=== PATIENT | male | born 1970 | race Caucasian/White ===

== ENCOUNTER 2019-04-30 08:14 | Emergency (ER) | payer MEDICARE, OTHER, SELFPAY ==
[2019-04-30 08:19] VITALS: BP 137/96; PULSE 90; RESP 17; TEMP 36.8; O2SAT 99
--- NOTE | 2019-04-30 08:30 | ED.RECABL ---
HPI - Recheck/Abnormal Lab/Rx General Chief Complaint: Recheck/Abnormal Lab/Rx Stated Complaint: flu swab Time Seen by Provider: 04/30/19 08:29 Source: patient and family () Mode of arrival: ambulatory Limitations: no limitations History of Present Illness HPI narrative: The pt is a 48 y/o male who presents to the ED with request for Tamiflu prescription. Pt has a PMHx of cardiac sarcoidosis that makes him more susceptible to disease. He states that he returned from [place] last night, and that he made physical contact with his daughter, who tested positive for flu today. Pt's states that they have wiped down all surfaces at home, but pt states that he would like the prescription to prevent against illness since he had the flu last year, as well as his upcoming pig med[place] in [place] this week. Pt denies rhinorrhea, cough, and sore throat. Pt notes that he has a PSHx of pacemaker and defibrillator. complaint: other (Request for Tamiflu prescription) Returns today for: request for prescription (Tamiflu) Context: other (Has PMHx of cardiac sarcoidosis) Associated symptoms: none Related Data Home Medications Medication Instructions Recorded Confirmed albuterol sulfate [Proventil HFA] INHALATION 04/30/19 Allergies Allergy/AdvReac Type Severity Reaction Status Date / Time amoxicillin Allergy Unknown Hives Verified 04/30/19 08:21 Review of Systems Review of Systems: All systems reviewed & are unremarkable except as noted in HPI and below ENT: Denies sore throat and Denies other (Rhinorrhea) Respiratory: Respiratory: Denies cough PMFSH Past Medical History Medical History (Updated 04/30/19 @ 08:42 by Walker Velarde MD) Cardiac sarcoidosis Corneal abrasion HTN (hypertension) Influenza Surgical History Surgical History (Updated 04/30/19 @ 08:38 by Selvin Hernandez) S/P cardiac pacemaker procedure Status post implantation of automatic cardioverter/defibrillator (AICD) Social History Social History (Updated 04/30/19 @ 08:39 by Selvin Hernandez) Smoking status: Never smoker Gender identity (if verbalized by the patient): Male Exam Narrative: Exam Narrative: GENERAL: Well-appearing, well-nourished, and in no acute distress. HEAD: Normocephalic, atraumatic. CHEST: Clear to auscultation. No respiratory distress. HEART: Regular rate and rhythm. Normal peripheral pulses. EXTREMITIES: Normal range of motion. Normal strength PSYCH: Normal mood and affect. Course Course Emergency Course: Flu negative. Will start on prophylaxis medication. Vital Signs Vital signs: Vital Signs Temperature 98.2 F 04/30/19 08:19 Pulse Rate 90 04/30/19 08:19 Respiratory Rate 17 04/30/19 08:19 Blood Pressure 137/96 H 04/30/19 08:19 Pulse Oximetry 99 04/30/19 08:19 Temperature 98.2 F 04/30/19 08:19 Pulse Rate 90 04/30/19 08:19 Respiratory Rate 17 04/30/19 08:19 Blood Pressure 137/96 H 04/30/19 08:19 Pulse Oximetry 99 04/30/19 08:19 Discharge Plan Discharge Clinical Impression: Exposure to the flu Patient Disposition: Home, Self-Care Condition: Stable Instructions: Influenza (ED) Additional Instructions: Your flu test was negative but some in your family does have influenza. Take Tamiflu once a day to hopefully prevent lobo this infection. Prescriptions: New oseltamivir 75 mg capsule 75 mg PO DAILY Qty: 14 RF: 0 No Action albuterol sulfate [Proventil HFA] 90 mcg/actuation HFA aerosol inhaler INHALATION RF: 0 Follow-up/Referrals: ROBY, [Primary Care Provider] - 1 Week
== END 2019-04-30 09:30 | disposition home or self-care (01) ==
PROVIDERS: Emergency Provider Emergency Medicine
DX: Z20.828 Contact with and (suspected) exposure to other viral communicable diseases (principal); D86.89 Sarcoidosis of other sites; I10 Essential (primary) hypertension; Z95.810 Presence of automatic (implantable) cardiac defibrillator
CPT/HCPCS: 87804; 99283

== ENCOUNTER 2021-09-07 12:10 | Emergency (ER) | payer MEDICARE, OTHER, SELFPAY ==
[2021-09-07 12:21] VITALS: BP 134/93; PULSE 117; RESP 22; TEMP 36.8; O2SAT 99
--- NOTE | 2021-09-07 12:31 | ED.URI ---
HPI - URI/Sore Throat General Chief Complaint: Upper Respiratory Infection Stated Complaint: severe head pressure,deep cough Time Seen by Provider: 09/07/21 12:32 Source: patient and RN notes reviewed Mode of arrival: ambulatory Limitations: no limitations History of Present Illness HPI Narrative: 50-year-old male presented for complaint of sinus pressure, congestion, productive cough of green sputum for about 6 days. He denies associated shortness of breath, heart racing, nausea, vomiting, fevers or chills. He has been taking [id number] cough and cold medication and homeopathic remedies. He denies sick contacts. Has a history of cardiac sarcoidosis and pacemaker. MD elicited complaint: cough Related Data Home Medications Medication Instructions Recorded Confirmed metoprolol succinate 50 mg 1 tablet PO DAILY 09/07/21 09/07/21 tablet,extended release 24 hr Allergies Allergy/AdvReac Type Severity Reaction Status Date / Time amoxicillin Allergy Unknown Hives Verified 09/07/21 12:33 Review of Systems Review of Systems: CONSTITUTIONAL: Endorses malaise, denies chills, sweats, fever EYES: Denies visual changes, redness, or discharge ENT: Reports rhinorrhea, congestion, sinus pain, otalgia, sore throat CARDIOVASCULAR: Denies chest pain, palpitations, edema RESPIRATORY: Reports cough, post nasal drainage. Denies dyspnea GASTROINTESTINAL: Denies abdominal pain, nausea, vomiting, diarrhea SKIN: Denies rash or itching MUSCULOSKELETAL: Endorses myalgia NEUROLOGIC: Endorses headache PMFSH Past Medical History Medical History Cardiac sarcoidosis Corneal abrasion HTN (hypertension) Influenza Surgical History Surgical History S/P cardiac pacemaker procedure Status post implantation of automatic cardioverter/defibrillator (AICD) Social History Social History Smoking status: Never smoker Gender identity (if verbalized by the patient): Male Exam Narrative: GENERAL: Ill-appearing, nontoxic EYES: right conjunctival injection ENT: Mucous membranes moist. TMs pearly guillen with normal light reflex bilaterally; no tragal tenderness. Oropharynx erythematous without lesions or exudate, no drooling, no hoarseness, no trismus, uvula midline. NECK: Supple. No lymphadenopathy CHEST: Clear to auscultation, breath sounds equal. Frequent harsh moist cough. No wheezing, rhonchi, rales, or stridor. No respiratory distress, speaks in full sentences. HEART: Regular rate and rhythm. No murmur heard. SKIN: Warm, dry, no rash. NEURO: Alert and oriented x3. PSYCH: Normal mood and affect Course Course Emergency Course: Patient is aware of diagnosis, understands and agrees to treatment plan. Anticipatory guidance given. Patient agrees to follow-up as directed and is aware of reasons to seek care at the emergency department. Portions of this record may have been created with voice recognition software Level of Care: Express Care Visit Vital Signs Vital signs: reviewed MDM - URI/Sore Throat MDM Narrative Medical decision making narrative: Advised supportive measures in addition to antibiotic and steroid for URI, aware of signs/symptoms to go to the ER. Pt is appropriate for outpt treatment and f/u. Differential Diagnosis Differential diagnosis: Likely upper respiratory infection, sinusitis and viral infection Discharge Plan Discharge Clinical Impression: Upper respiratory infection Qualifiers: URI type: unspecified URI Qualified Code(s): J06.9 - Acute upper respiratory infection, unspecified Patient Disposition: Home, Self-Care Condition: Stable Instructions: Antibiotic Form, Upper Respiratory Infection (ED) Additional Instructions: Recommend Flonase spray and Zyrtec (or Claritin/Rabia) Tylenol 1000mg every 8 hours as needed for pain
== END 2021-09-07 12:48 | disposition home or self-care (01) ==
PROVIDERS: Emergency Provider Nurse Practitioner Family
DX: J06.9 Acute upper respiratory infection, unspecified (principal); I10 Essential (primary) hypertension; Z95.810 Presence of automatic (implantable) cardiac defibrillator; D86.89 Sarcoidosis of other sites
CPT/HCPCS: 99213; G0463

== ENCOUNTER 2021-09-23 14:25 | Emergency (ER) | payer MEDICARE, OTHER, SELFPAY ==
[2021-09-23 14:36] VITALS: BP 144/94; PULSE 99; RESP 18; TEMP 36.7; O2SAT 100
--- NOTE | 2021-09-23 14:41 | ED.SKABFB ---
HPI - Skin/Abscess/Foreign Bdy General Chief complaint: Skin/Abscess/Foreign Body Stated complaint: Rash Time Seen by Provider: 09/23/21 14:43 Source: patient and RN notes reviewed Mode of arrival: ambulatory Limitations: no limitations History of Present Illness HPI narrative: 50-year-old male presents with concern for poison yran. He reports rash on both arms for 2 days and yesterday he noticed a rash on his eye. He reports he got this rash [place]. He reports seeing spider web like substance in his eye that then cleared. He denies other vision changes or eye pain. He reports MD complaint: rash Related Data Home Medications Medication Instructions Recorded Confirmed metoprolol succinate 50 mg 1 tablet PO DAILY 09/07/21 09/23/21 tablet,extended release 24 hr Allergies Allergy/AdvReac Type Severity Reaction Status Date / Time amoxicillin Allergy Unknown Hives Verified 09/23/21 14:38 Review of Systems Review of Systems: CONSTITUTIONAL: Denies malaise, chills, sweats, or fever. EYES: Denies redness, or discharge. ENT: Denies rhinorrhea, congestion, swollen lips, swollen tongue CARDIOVASCULAR: Denies chest pain, palpitations, or edema. RESPIRATORY: Denies cough or dyspnea. GASTROINTESTINAL: Denies abdominal pain, nausea, vomiting SKIN: Reports itchy rash on bilateral arms, the left eyelid MUSCULOSKELETAL: Denies joint pain or myalgia. NEUROLOGIC: Denies headache. All systems reviewed & are unremarkable except as noted in HPI and below PMFSH Past Medical History Medical History Cardiac sarcoidosis Corneal abrasion HTN (hypertension) Influenza Surgical History Surgical History S/P cardiac pacemaker procedure Status post implantation of automatic cardioverter/defibrillator (AICD) Social History Social History Smoking status: Never smoker Gender identity (if verbalized by the patient): Male Comments At time of signature, agree with nursing past medical, surgical, social and family history. There is no relevant family history pertinent to the presenting complaint Exam Narrative: GENERAL: Well-appearing, well-nourished, and in no acute distress. HEAD: Normocephalic, atraumatic. EYES: PERRLA, conjunctivae clear, and EOMI. ENT: Mucous membranes moist. NECK: Supple. No lymphadenopathy CHEST: Clear to auscultation. No respiratory distress. HEART: Regular rate and rhythm. SKIN: Warm, dry. Patches of erythema, vesicles noted to bilateral forearms, some linear pattern, to the left upper eyelid NEURO: Alert and oriented x3. PSYCH: Normal mood and affect Course Course Emergency Course: Patient is aware of diagnosis, understands and agrees to treatment plan. Anticipatory guidance given. Patient agrees to follow-up as directed and is aware of reasons to seek care at the emergency department. Portions of this record may have been created with voice recognition software Level of Care: Express Care Visit Vital Signs Vital signs: Vital Signs Temperature 98.1 F 09/23/21 14:36 Pulse Rate 99 09/23/21 14:36 Respiratory Rate 18 09/23/21 14:36 Blood Pressure 144/94 H 09/23/21 14:36 Pulse Oximetry 100 09/23/21 14:36 Oxygen Delivery Room Air 09/23/21 14:36 Temperature 98.1 F 09/23/21 14:36 Pulse Rate 99 09/23/21 14:36 Respiratory Rate 18 09/23/21 14:36 Blood Pressure 144/94 H 09/23/21 14:36 Pulse Oximetry 100 09/23/21 14:36 Oxygen Delivery Room Air 09/23/21 14:36 Reviewed. MDM - Skin/Abscess/Foreign Bdy MDM Narrative Medical decision making narrative: Does not appear at this time to be erythema multiforme, bullous, SJS, TEN; no evidence at this time to suggest RMSF, endocarditis or Lyme disease; patient looks well, nontoxic and is tolerating oral intake; no
[2021-09-23] MEDS: methylPREDNISolone SOD SUCC 125 MG VIAL IM (14:53)
== END 2021-09-23 15:18 | disposition home or self-care (01) ==
PROVIDERS: Emergency Provider Nurse Practitioner
DX: L25.9 Unspecified contact dermatitis, unspecified cause (principal); I10 Essential (primary) hypertension; D86.89 Sarcoidosis of other sites; Z95.810 Presence of automatic (implantable) cardiac defibrillator
CPT/HCPCS: 96372; 99213; G0463; J2930

== ENCOUNTER 2023-04-23 17:34 | Emergency (ER) | payer MEDICARE, OTHER, SELFPAY ==
--- NOTE | 2023-04-23 17:39 | ED.URI ---
HPI - URI/Sore Throat General Chief Complaint: Upper Respiratory Infection Stated Complaint: flu like symptoms Time Seen by Provider: 04/23/23 17:38 Source: patient Mode of arrival: ambulatory Limitations: no limitations History of Present Illness HPI Narrative: Patient is a 52-year-old male who presents with 4 days of cough, congestion, chills, fatigue. Patient has history of sarcoidosis, pacemaker. Has been taking natural remedies. Denies any fever, nausea, vomiting, diarrhea. Denies any known sick contacts. Patient and vitamin B12 and another immunity support injection today. Related Data Home Medications Medication Instructions Recorded Confirmed metoprolol succinate 50 mg 1 tablet PO DAILY 09/07/21 09/23/21 tablet,extended release 24 hr prednisone 20 mg tablet 5 mg PO DAILY 04/23/23 Allergies Allergy/AdvReac Type Severity Reaction Status Date / Time amoxicillin Allergy Unknown Hives Verified 04/23/23 17:46 Review of Systems Review of Systems: All systems reviewed & are unremarkable except as noted in HPI and below Constitutional: Constitutional: Denies body ache(s), Denies chills, Denies fatigue, Denies fever(s), Denies headache(s), Denies malaise and Denies weakness Eyes: Eyes: Denies blurry vision, Denies itchy eyes and Denies loss of vision ENT: Denies otalgia, Denies headache(s), Reports nasal congestion, Denies sinus pain and Denies sore throat Cardiovascular: Cardiovascular: Denies chest pain, Denies irregular heart rhythm and Denies dyspnea Respiratory: Respiratory: Reports cough and Denies dyspnea Gastrointestinal: Gastrointestinal: Denies abdominal pain, Denies diarrhea, Denies nausea and Denies vomiting Musculoskeletal: Musculoskeletal: Denies back pain, Denies myalgias and Denies arthralgias Integumentary/Breasts: Skin/Breast: Denies pruritus and Denies rash Neurologic: Denies headache(s), Denies loss of vision and Denies weakness Psychiatric: Psychiatric: Reports no additional psychiatric complaints Endocrine: Endocrine: Denies fatigue Allergic/Immunologic: Allergic/Immunologic: Denies itchy eyes PMFSH Past Medical History Medical History Cardiac sarcoidosis Corneal abrasion HTN (hypertension) Influenza Surgical History Surgical History S/P cardiac pacemaker procedure Status post implantation of automatic cardioverter/defibrillator (AICD) Social History Social History Smoking status: Never smoker Gender identity (if verbalized by the patient): Male Comments At time of signature, agree with nursing past medical, surgical, social and family history. There is no relevant family history pertinent to the presenting complaint. Exam Const: General: cooperative, healthy appearing, comfortable, no acute distress and well nourished Nutritional Appearance: well nourished Orientation/consciousness: patient oriented x3 Limitations: no limitations HENMT: Head: normal to inspection, normocephalic and atraumatic Ears: hearing grossly normal bilaterally, external ears normal, TM's normal bilaterally, EAC's normal and no periauricular adenopathy Face/Nose/Sinus: Normal external nose present, Normal nasal mucous membranes and turbinates present, normal facial exam, sinuses nontender and face symmetric Face and sinus: normal facial exam, sinuses nontender and face symmetric Mouth: Yes Normal oral and palatal mucosa present, Yes lip normal, Yes tongue normal, Yes Normal salivary glands and ducts present, Yes oropharynx normal and Yes moist mucous membranes Teeth and gingiva: dentition normal Throat: uvula midline, posterior oropharynx abnormal erythema, postnasal drainage and tonsils absent Eyes: General: appearance normal, both eyes and all related structures Alignment and Position: alignment normal and position normal
[2023-04-23 17:47] VITALS: BP 143/87; PULSE 79; RESP 18; TEMP 36.6; O2SAT 100
[2023-04-23 17:48] VITALS: BP 143/87; PULSE 79; RESP 18; TEMP 36.6; O2SAT 100
== END 2023-04-23 18:12 | disposition home or self-care (01) ==
PROVIDERS: Emergency Provider Nurse Practitioner Family
DX: J20.9 Acute bronchitis, unspecified (principal); I10 Essential (primary) hypertension
CPT/HCPCS: 99213; G0463

== ENCOUNTER 2023-05-04 13:24 | Emergency (ER) | payer MEDICARE, OTHER, SELFPAY ==
--- NOTE | ~2023-05-04 | XR_ITS ---
EXAMINATION: XR chest 2V DATE: 05/04/2023 14:01 INDICATION: Cough. TECHNIQUE: Frontal and lateral views of the chest were obtained. COMPARISON: None. FINDINGS: There is no pneumonia, pleural effusion, or pneumothorax. The heart size is normal. There i s a left chest wall pacer with leads in the right atrium and right ventricle. IMPRESSION: 1. No acute cardiopulmonary disease. Reviewed, dictated and finalized at location E. ELAIN MIXER
[2023-05-04 13:30] VITALS: BP 127/85; PULSE 109; RESP 20; TEMP 37; O2SAT 99
--- NOTE | 2023-05-04 14:01 | ED.URI ---
HPI - URI/Sore Throat General Chief Complaint: Upper Respiratory Infection Stated Complaint: Cough and Congestion Time Seen by Provider: 05/04/23 14:02 Source: patient, RN notes reviewed and old records reviewed Mode of arrival: ambulatory Limitations: no limitations History of Present Illness HPI Narrative: 52 year old male who presents to [facility] care with complaints of cough with congestion persisting after treatment with antibiotic, albuterol inhaler,steroid and cough syrup which was ordered on 04/23/2023. Patient reports that promethazine cough syrup did nothing but give him diarrhea. He reports that he has not slept more that a 2 hour interval for the past 3 weeks because of his cough. Patient states his drainage is now yellow green in color. Patient reports no recent fevers, MD elicited complaint: cough and other (congestion) Pertinent past history: immunosuppression and other (sarcoidosis) Onset (ago): week(s) (3) Consistency: constant Severity: moderate Description of mucous: yellow and green Able to tolerate fluids by mouth: Yes Treatments prior to arrival: antibiotics and other (prescription cough med and steroid, and inhaler) Related Data Home Medications Medication Instructions Recorded Confirmed metoprolol succinate 50 mg 1 tablet PO DAILY 09/07/21 05/04/23 tablet,extended release 24 hr prednisone 5 mg tablet 5 mg PO DAILY 05/04/23 05/04/23 Allergies Allergy/AdvReac Type Severity Reaction Status Date / Time amoxicillin AdvReac Mild Hives Verified 05/04/23 13:40 Review of Systems Review of Systems: CONSTITUTIONAL: Denies malaise, chills, sweats, or fever. EYES: Denies visual changes, redness, or discharge. ENT: Reports rhinorrhea, congestion, sinus pain, no otalgia and no sore throat. CARDIOVASCULAR: Denies chest pain, palpitations, or edema. RESPIRATORY: Reports cough.? Denies dyspnea.persistent cough GASTROINTESTINAL: Denies abdominal pain, nausea, vomiting, diarrhea SKIN: Denies rash or itching. MUSCULOSKELETAL: Denies myalgia. NEUROLOGIC: Denies headache. All systems reviewed & are unremarkable except as noted in HPI and below PMFSH Past Medical History Medical History Acute cough Cardiac sarcoidosis Corneal abrasion HTN (hypertension) Influenza URI (upper respiratory infection) Surgical History Surgical History S/P cardiac pacemaker procedure Status post implantation of automatic cardioverter/defibrillator (AICD) Social History Social History Smoking status: Never smoker Gender identity (if verbalized by the patient): Male Comments At time of signature, agree with nursing past medical, surgical, social and family history. There is no relevant family history pertinent to the presenting complaint Exam Narrative: GENERAL: Well-appearing, well-nourished, and in no acute distress. HEAD: Normocephalic EYES: PERRLA, conjunctivae clear ENT: Nares clear, turbinates edematous and erythematous, yellow discharge. Mucous membranes moist. TM pearly guillen with dull light reflex bilaterally; no tragal tenderness. Oropharynx erythematous without lesions. Tonsils not enlarged and without exudate, no drooling, no hoarseness, no trismus, uvula midline.post nasal drainage NECK: Supple. No lymphadenopathy CHEST: Clear to auscultation, breath sounds equal. No wheezing, rhonchi, rales, or stridor. No respiratory distress, speaks in full sentences.harsh cough,SAO2 99% on room air HEART: Regular rate and rhythm. No murmur heard. SKIN: Warm, dry, no rash. NEURO: Alert and oriented x3. PSYCH: Normal mood and affect Course Course Emergency Course: Patient is aware of diagnosis, understands and agrees to treatment plan.? Anticipatory guidance given.? Patient agrees to follow-up as directed and is aware of re
== END 2023-05-04 14:25 | disposition home or self-care (01) ==
PROVIDERS: Emergency Provider Registered Nurse
DX: J06.9 Acute upper respiratory infection, unspecified (principal); I10 Essential (primary) hypertension; D86.89 Sarcoidosis of other sites; Z95.810 Presence of automatic (implantable) cardiac defibrillator
CPT/HCPCS: 71046; 99213; G0463

== ENCOUNTER 2023-11-27 16:42 | Emergency (ER) | payer MEDICARE, OTHER, SELFPAY ==
--- NOTE | ~2023-11-27 | XR_ITS ---
EXAMINATION: [id number] Exam Date/Time: 11/27/2023 17:22 CDT HISTORY: fall 7 days ago. pain lower ribs anterior to later Comparison: 05/04/2023. RESULT: Lines, tubes, and devices: Left chest pacer/AICD with intact leads. Lungs and pleura: Clear. Cardiothymic silhouette: Stable. Other: No acute upper abdominal finding. Mildly displaced fractures of the anterolateral right sixth and seventh ribs IMPRESSION: No acute cardiopulmonary process. Mildly displaced fractures of the anterolateral right sixth and sev enth ribs. Reviewed, dictated and finalized at location K. IMPRESSION: No acute cardiopulmonary process. Mildly displaced fractures of the anterolater al right sixth and seventh ribs.
--- NOTE | 2023-11-27 16:49 | ED.GENADULT ---
HPI - General Adult General Chief complaint: Unspecified Stated complaint: pain and injury in rib cage Time Seen by Provider: 11/27/23 16:54 Source: patient, RN notes reviewed and old records reviewed Mode of arrival: ambulatory Limitations: no limitations History of Present Illness HPI narrative: 53-year-old male presents to the [facility] with complaints of rib discomfort after falling into the side of the truck bed. Patient states that he was standing in the bed when he slipped and fell forward landing with his ribs against the side of the truck bed. States that occurred 1 week ago. Continued to dear Duval with a bow. Pain is worse with cool his arms and using a ratchet strap. States he has been taken ibuprofen with some relief Onset (ago): week(s) (1) Treatments prior to arrival: NSAID Related Data Home Medications Medication Instructions Recorded Confirmed metoprolol succinate 50 mg 1 tablet PO DAILY 09/07/21 11/27/23 tablet,extended release 24 hr prednisone 5 mg tablet 5 mg PO DAILY 05/04/23 11/27/23 Allergies Allergy/AdvReac Type Severity Reaction Status Date / Time amoxicillin Allergy Mild Hives Verified 11/27/23 16:57 Review of Systems Review of Systems: All systems reviewed & are unremarkable except as noted in HPI and below Constitutional: Constitutional: Reports no additional constitutional complaints Eyes: Eyes: Reports no additional eye complaints ENT: Reports system reviewed and no additional complaints, except as documented Cardiovascular: Cardiovascular: Reports as per HPI, Denies chest pain and Denies dyspnea Comments: Right rib pain Respiratory: Respiratory: Reports no additional respiratory complaints, Denies chest congestion, Denies cough and Denies dyspnea Gastrointestinal: Gastrointestinal: Reports no additional gastrointestinal complaints, Denies abdominal pain, Denies nausea and Denies vomiting Musculoskeletal: Musculoskeletal: Reports no additional musculoskeletal complaints Integumentary/Breasts: Skin/Breast: Reports system reviewed and no additional complaints, except as docu Neurologic: Reports system reviewed and no additional complaints, except as documented Psychiatric: Psychiatric: Reports no additional psychiatric complaints Allergic/Immunologic: Allergic/Immunologic: Reports no additional allergic/immunologic complaints PMFSH Past Medical History Medical History Acute cough Cardiac sarcoidosis Corneal abrasion HTN (hypertension) Influenza URI (upper respiratory infection) Surgical History Surgical History S/P cardiac pacemaker procedure Status post implantation of automatic cardioverter/defibrillator (AICD) Social History Social History Smoking status: Never smoker Gender identity (if verbalized by the patient): Male Comments At the time of my signature, I reviewed and agree with the nursing past medical, surgical, social, and family history. There is no relevant family history pertinent to the patient complaint. Exam Const: General: cooperative, healthy appearing, comfortable, no acute distress, well developed, alert and well nourished Nutritional Appearance: well nourished Orientation/consciousness: patient oriented x3 Limitations: no limitations HENMT: Head: normal to inspection Ears: hearing grossly normal bilaterally and external ears normal Face/Nose/Sinus: Normal external nose present, Normal nares present, Normal nasal mucous membranes and turbinates present, normal facial exam and face symmetric Face and sinus: normal facial exam and face symmetric Eyes: General: appearance normal, both eyes and all related structures Alignment and Position: alignment normal Periorbital: periorbital findings normal Neck: Neck: normal visual inspection, full ROM, no lymphadenopathy and no
[2023-11-27 16:57] VITALS: BP 144/87; PULSE 83; RESP 15; TEMP 36.6; O2SAT 98
== END 2023-11-27 18:13 | disposition home or self-care (01) ==
PROVIDERS: Emergency Provider Nurse Practitioner
DX: S22.41XA Multiple fractures of ribs, right side, initial encounter for closed fracture (principal); W01.198A Fall on same level from slipping, tripping and stumbling with subsequent striking against other object, initial encounter; I10 Essential (primary) hypertension; D86.89 Sarcoidosis of other sites; Z95.810 Presence of automatic (implantable) cardiac defibrillator
CPT/HCPCS: 71101; 99213; G0463

== ENCOUNTER 2024-09-03 21:41 | Emergency (ER) | payer MEDICARE, OTHER, SELFPAY ==
--- OUTSIDE RECORDS SUMMARY | 2024-09-03 21:44 | XMS_ITS | Encounter Summary ---
Author Organization [facility] Address [address] [place] [address] Phone Care Team Providers Care Expense Clerk Name Role Phone Lauren Parker Unavailable Unavailable Kristal Clements RN Unavailable [phone] Farhat Choi MD Unavailable +[phone] Maicol Santos MD Unavailable Sabi Simpson RN Unavailable +[phone] Kristina Montiel MD Primary Care Provider [phone] Tolu Wheat MD Unavailable [phone] Miscellaneous, Not In File Unavailable Unava ilable Encounter Details Date Type Department Care Team (Late st Contact Info) Description 08/15/2024 Telephone [facility] Cardiology [address] [facility] [address] 8th [place] [address] [place] [address] Kristina Montiel MD [address] [place], [place] [id number] Social History Tobacco Use Types Packs/Day Years Used Date Smoking Tobacco: Never Smokeless Tobacco: Former Chew Quit: 2011 AUDIT-C Answer Date Recorded Q1: How often do you have a drink containing alc ohol? Monthly or less 08/10/2024 Q2: How many drinks containi ng alcohol do you have on a typical day when you are drinking? 1 or 2 08/10/2024 Q3: How often do you have si x or more drinks on one occasion? Never 08/10/2024 Personal Safety Answer Date Recorded Have you ever been in or are you currently in a harmful physical or emotional relationship or is someone making you feel afraid or unsafe? 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 I talked with pt's and she said she already talked with 's team and agrees with the plan as outlined below. Kristina Montiel MD Jolliff, Lynelle A., NP; P Ho Montiel Clinical [place] Perfect I agree (of course) TY MG Previous Messages ----- Message ----- From: Jovita Almeida NP Sent: 08/15/2024 2:20 PM CDT To: Kristina Montiel MD; [facility]* Good afternoon, I just spoke with Mr. Alan. He was discharged on Keflex with plan for 7 days. He unfortunately contacted our office that he has developed a rash and itching. I instructed him to stop the keflex, and can use benadryl for symptom relief. I did not restart another antibiotic as he has had 4 days at this time, his incision does not have redness, warmth, or drainage. Thanks! Jovita Almeida, MSN, TOLL COLLECTOR SUPERVISOR- Division of Cardiothoracic Surgery * Telephone Encounter - Shana Betancourt - 08/15/2024 2:09 PM CDT Tiana Pt's spouse calling to speak with a nurse in regards to the pt having an allergic reaction to the antibiotic that was prescribed. Pt's spouse states that the pt is broke out all over his body and is itchy. documented in this encounter Plan of Treatment Not on file documented as of this encounter Visit Diagnoses Not on filedocumented in this encounter Care Teams Expense Clerk Relationship Specialty Start Date End Date Kristina Montiel MD [address] [facility] [address] [place] [address] PCP - General Cardiology 08/11/24 Lauren Parker Primary It Network Architect Cardiology 09/10/17 Kristal Clements, AVI Permastone Mechanic 09/21/19 Farhat Choi MD [address] [place] [address] Referring Physician Pulmonary Disease 11/27/19 Maicol Santos MD [address] [place] [address] Biochemistry Specialist Transplant 09/21/19 Sabi Simpson RN [address] [facility] [address] [place] [address] Registered Nurse Permastone Mechanic 09/21/19 Tolu Wheat MD [address] [place] [address] Surgeon Cardiothoracic Surgery 08/11/24 Miscellaneous, Not In File 08/11/24 documented as of this encounter
--- OUTSIDE RECORDS SUMMARY | 2024-09-03 21:44 | XMS_ITS | Encounter Summary ---
Author Organization [facility] Address [address] [place] [address] Phone Care Team Providers Care Drapery Maker Name Role Phone Gavin Hernandez MD Primary Care Provider + [phone] Nallely Arshad RN Unavailable Lauren Parker Unavailable Unavailable Monet Hernandez MD Primary Care Provider [phone] Kristal Clements RN Unavailable [phone] Kristal Clements RN Unavailable [phone] Farhat Choi MD Unavailable [phone] Maicol Santos MD Unavailable [phone] Sabi Simpson RN Unavailable [phone] Kristina Montiel MD Primary Care Provider [phone] Tolu Wheat MD Unavailable [phone] Miscellaneous, Not In File Unavailable Unava ilable Encounter Details Date Type Department Care Team (Late st Contact Info) Description 12/02/2016 Orders Only [facility] Provider, MD Gil [address] [place] [address] Social History Tobacco Use Types Packs/Day Years Used Date Smoking Tobacco: Never Assessed Sex and Gender Information Value Date Recorded Sex Assigned at Not on file 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 us Historical Provider [facility]ST[facility]ED Final Result documented in this encounter Visit Diagnoses Not on filedocumented in this encounter Care Teams Drapery Maker Relationship Specialty Start Date End Date Gavin Hernandez MD PCP - General 06/13/16 05/17/19 Monet Hernandez MD [address] [place] [address] PCP - General Family Medicine 09/06/19 08/10/24 Kristina Montiel MD [address] [facility] [address] [place] [address] PCP - General Cardiology 08/11/24 Nallely Arshad RN [address] [facility] [address] [place] [address] Registered Nurse Cardiology 09/10/17 11/16/19 Lauren Parker Primary Patient Relations Coordinator Cardiology 09/10/17 Kristal Clements, RN Six Sigma Project Manager 09/21/19 Kristal Clements, RN Six Sigma Project Manager 11/17/19 2 Farhat Choi MD [address] [place] [address] Referring Physician Pulmonary Disease 11/27/19 Maicol Santos MD [address] [place] [address] Business Performance Manager Transplant 09/21/19 Sabi Simpson, RN [address] [facility] [address] [place] [address] Registered Nurse Six Sigma Project Manager 09/21/19 Tolu Wheat MD [address] [place] [address] Surgeon Cardiothoracic Surgery 08/11/24 Miscellaneous, Not In File 08/11/24 documented as of this encounter
--- OUTSIDE RECORDS SUMMARY | 2024-09-03 21:44 | XMS_ITS | Encounter Summary ---
Author Organization [facility] Address [address] [place] [address] Phone Care Team Providers Care Power Screwdriver Operator Name Role Phone Gavin Hernandez MD Primary Care Provider + [phone] Nallely Arshad RN Unavailable Lauren Parker Unavailable Unavailable Monet Hernandez MD Primary Care Provider [phone] Kristal Clements RN Unavailable +[phone] Kristal Clements RN Unavailable [phone] Farhat Choi MD Unavailable +[phone] Maicol Santos MD Unavailable [phone] Sabi Simpson RN Unavailable [phone] Kristina Montiel MD Primary Care Provider [phone] Tolu Wheat MD Unavailable [phone] Miscellaneous, Not In File Unavailable Unava ilable Encounter Details Date Type Department Care Team (Late st Contact Info) Description 08/03/2016 Orders Only [facility] Provider, MD Gil [address] [place] [address] Social History Tobacco Use Types Packs/Day Years Used Date Smoking Tobacco: Never Assessed Sex and Gender Information Value Date Recorded Sex Assigned at Not on file 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 us Historical Provider [facility] CH[facility]STINA HEAD Final Result documented in this encounter Visit Diagnoses Not on filedocumented in this encounter Care Teams Power Screwdriver Operator Relationship Specialty Start Date End Date Gavin Hernandez MD PCP - General 06/13/16 05/17/19 Monet Hernandez MD [address] [place] [address] PCP - General Family Medicine 09/06/19 08/10/24 Kristina Montiel MD [address] [facility] [address] [place] [address] PCP - General Cardiology 08/11/24 Nallely Arshad RN [address] [facility] [address] [place] [address] Registered Nurse Cardiology 09/10/17 11/16/19 Lauren Parker Primary Key Punch Teacher Cardiology 09/10/17 Kristal Clements, RN Sonar Subsystem Equipment Operator 09/21/19 Kristal Clements, RN Sonar Subsystem Equipment Operator 11/17/19 2 Farhat Choi MD [address] [place] [address] Referring Physician Pulmonary Disease 11/27/19 Maicol Santos MD [address] [place] [address] Electronic Lab Technician Transplant 09/21/19 Sabi Simpson, RN [address] [facility] [address] [place] [address] Registered Nurse Sonar Subsystem Equipment Operator 09/21/19 Tolu Wheat MD [address] [place] [address] Surgeon Cardiothoracic Surgery 08/11/24 Miscellaneous, Not In File 08/11/24 documented as of this encounter
--- OUTSIDE RECORDS SUMMARY | 2024-09-03 21:44 | XMS_ITS | Encounter Summary ---
Author Organization [facility] Address [address] [place] [address] Phone Care Team Providers Care Cloth Printer Helper Name Role Phone Lauren Parker Unavailable Unavailable Kristal Clements RN Unavailable [phone] Farhat Choi MD Unavailable +[phone] Maicol Santos MD Unavailable +[phone] Sabi Simpson RN Unavailable +[phone] Kristina Montiel MD Primary Care Provider Tolu Wheat MD Unavailable +[phone] Miscellaneous, Not In File Unavailable Unava ilable Encounter Details Date Type Department Care Team (Late st Contact Info) Description 08/11/2024 Results Follow-Up [facility] Cardiology [address] [facility] Advanced Medicine 8th [place] [address] [place] [address] Maicol Santos MD [address] [facility] [address] [place] [address] PET/CT FDG Cardiac Sarcoid/Infection Social History Tobacco Use Types Packs/Day Years [...] on file 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 Gender Identity Male 10/16/2020 8:46 AM CDT Sexual Orientation Not on file documented as of this encounter Plan of Treatment Not on file documented as of this encounter Visit Diagnoses Not on filedocumented in this encounter Care Teams Cloth Printer Helper Relationship Specialty Start Date End Date Kristina Montiel MD [address] [facility] [address] [place] [address] PCP - General Cardiology 08/11/24 Lauren Parker Primary Bee Tender Cardiology 09/10/17 Kristal Clements RN Servicing Rep 09/21/19 Farhat Choi MD [address] [place] [address] Referring Physician Pulmonary Disease 11/27/19 Maicol Santos MD [address] [place] [address] Shrub Planter Transplant 09/21/19 Sabi Simpson RN [address] [facility] [address] [place] [address] Registered Nurse Servicing Rep 09/21/19 Tolu Wheta MD [address] [facility] [address] [place] [address] Surgeon Cardiothoracic Surgery 08/11/24 Miscellaneous, Not In File 08/11/24 documented as of this encounter
--- OUTSIDE RECORDS SUMMARY | 2024-09-03 21:44 | XMS_ITS ---
Author Organization [facility] Address [address] [place] [address] Care Team Providers Care Alliances Consultant Name Role Phone Keith Lauren Unavailable Unavailable Kristal Clements RN Unavailable [phone] Farhat Choi MD Unavailable [phone] Maicol Santos MD Unavailable +[phone] Sabi Simpson RN Unavailable +[phone] Kristina Montiel MD Primary Care Provider [phone] Tolu Wheat MD Unavailable +[phone] Miscellaneous, Not In File Unavailable Unava ilable Transplant Episode Heart Candidate [facility] ([place], [place]) - [facility] Referred on 08/01/2016 Marked as Ineligible on 12/31/2017 Heart CoordinatorHistorical ProviderMD Fax: N/A Email: N/A Care Team Name Role Phone Fax Email Historical MD Trent Oracle Programmer Analyst [phone] N/A N/A Lauren Parker Primary Computer Systems Security Analyst N/A N/A N/A Events Pre-Transplant Referred: 08/01/2016
--- OUTSIDE RECORDS SUMMARY | 2024-09-03 21:44 | XMS_ITS | Encounter Summary ---
Author Organization [facility] Address [address] [place] [address] Phone Care Team Providers Care Groundwater Programs Director Name Role Phone Gavin Hernandez MD Primary Care Provider + [phone] Nallely Arshad RN Unavailable Lauren Parker Unavailable Unavailable Monet Hernandez MD Primary Care Provider [phone] Kristal Clements RN Unavailable +[phone] Kristal Clements RN Unavailable +[phone] Farhat Choi MD Unavailable +[phone] Maicol Santos MD Unavailable [phone] Sabi Simpson RN Unavailable [phone] Kristina Montiel MD Primary Care Provider [phone] Tolu Wheat MD Unavailable [phone] Miscellaneous, Not In File Unavailable Unava ilable Encounter Details Date Type Department Care Team (Late st Contact Info) Description 03/08/2015 Orders Only [facility] Provider, MD Gil [address] [place] [address] Social History Tobacco Use Types Packs/Day Years Used Date Smoking Tobacco: Never Assessed Sex and Gender Information Value Date Recorded Sex Assigned at Not on file 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 us Historical Provider [facility] HEAD Final Result documented in this encounter Visit Diagnoses Not on filedocumented in this encounter Care Teams Groundwater Programs Director Relationship Specialty Start Date End Date Gavin Hernandez MD PCP - General 06/13/16 05/17/19 Monet Hernandez MD [address] [place] [address] PCP - General Family Medicine 09/06/19 08/10/24 Kristina Montiel MD [address] [facility] [address] [place] [address] PCP - General Cardiology 08/11/24 Nallely Arshad RN [address] [facility] [address] [place] [address] Registered Nurse Cardiology 09/10/17 11/16/19 Lauren Parker Primary Speech Instructor Cardiology 09/10/17 Kristal Clements, RN Industrial Accountant 09/21/19 Kristal Clements, RN Industrial Accountant 11/17/19 2 Farhat Choi MD [address] [place] [address] Referring Physician Pulmonary Disease 11/27/19 Maicol Santos MD [address] [place] [address] Teacher Ballet Transplant 09/21/19 Sabi Simpson, RN [address] [facility] [address] [place] [address] Registered Nurse Industrial Accountant 09/21/19 Tolu Wheat MD [address] [place] [address] Surgeon Cardiothoracic Surgery 08/11/24 Miscellaneous, Not In File 08/11/24 documented as of this encounter
--- OUTSIDE RECORDS SUMMARY | 2024-09-03 21:44 | XMS_ITS | Encounter Summary ---
Author Organization [facility] [employer] [facility] Address [address] [place] [address] Phone Care Team Providers Care Clinical Specialist Name Role Phone Gavin Hernandez MD Primary Care Provider + [phone] Nallely Arshad RN Unavailable Lauren Parker Unavailable Unavailable Monet Hernandez MD Primary Care Provider [phone] Kristal Clements RN Unavailable +[phone] Kristal Clements RN Unavailable +[phone] Farhat Choi MD Unavailable +[phone] Maicol Santos MD Unavailable +[phone] Sabi Simpson RN Unavailable [phone] Kristina Montiel MD Primary Care Provider [phone] Tolu Wheat MD Unavailable +[phone] Miscellaneous, Not In File Unavailable Unava ilable Encounter Details Date Type Department Care Team (Late st Contact Info) Description 02/05/2017 Orders Only [facility] Provider, MD Gil [address] [place] [address] Social History Tobacco Use Types Packs/Day Years Used Date Smoking Tobacco: Never Assessed Sex and Gender Information Value Date Recorded Sex Assigned at Not on file 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 us Historical Provider [facility] CHRISTINA HEAD Final Result documented in this encounter Visit Diagnoses Not on filedocumented in this encounter Care Teams Clinical Specialist Relationship Specialty Start Date End Date Gavin Hernandez MD PCP - General 06/13/16 05/17/19 Monet Hernandez MD [address] [place] [address] PCP - General Family Medicine 09/06/19 08/10/24 Kristina Montiel MD [address] [facility] [address] [place] [address] PCP - General Cardiology 08/11/24 Nallely Arshad RN [address] [facility] [address] [place] [address] Registered Nurse Cardiology 09/10/17 11/16/19 Lauren Parker Primary Contract Officer Cardiology 09/10/17 Kristal Clements, RN Gasfitter 09/21/19 Kristal Clements, RN Gasfitter 11/17/19 2 Farhat Choi MD [address] [place] [address] Referring Physician Pulmonary Disease 11/27/19 Maicol Santos MD [address] [place] [address] Business Intelligence Analyst Transplant 09/21/19 Sabi Simpson, RN [address] [facility] [address] [place] [address] Registered Nurse Gasfitter 09/21/19 Tolu Wheat MD [address] [place] [address] Surgeon Cardiothoracic Surgery 08/11/24 Miscellaneous, Not In File 08/11/24 documented as of this encounter
--- OUTSIDE RECORDS SUMMARY | 2024-09-03 21:44 | XMS_ITS | Encounter Summary ---
Author Organization [facility] Address [address] [place] [address] Phone Care Team Providers Care Client Executive Name Role Phone Gavin Hernandez MD Primary Care Provider [phone] Nallely Arshad RN Unavailable Lauren Parker Unavailable Unavailable Monet Hernandez MD Primary Care Provider +[phone] Kristal Clements RN Unavailable +[phone] Kristal Clements RN Unavailable +[phone] Farhat Choi MD Unavailable +[phone] Maicol Santos MD Unavailable +[phone] Sabi Simpson RN Unavailable [phone] Kristina Montiel MD Primary Care Provider [phone] Tolu Wheat MD Unavailable [phone] Miscellaneous, Not In File Unavailable Unava ilable Encounter Details Date Type Department Care Team (Late st Contact Info) Description 08/13/2017 Telephone [facility] Care Scheduling [address] [place], [place] [id number] Gavin Hernandez MD [address] [facility] [address] [place] [address] Social History Tobacco Use Types Packs/Day Years Used Date Smoking Tobacco: Never Sex and Gender Information Value Date Recorded Sex Assigned at Not on file Legal Sex Male 6:56 AM NONPROFIT DIRECTOR Gender Identity Male 10/16/2020 8:46 AM CDT Sexual Orientation Not on file documented as of this encounter Plan of Treatment Not on file documented as of this encounter Visit Diagnoses Not on filedocumented in this encounter Care Teams Client Executive Relationship Specialty Start Date End Date Gavin Hernandez MD PCP - General 06/13/16 05/17/19 Monet Hernandez MD [address] [place] [address] PCP - General Family Medicine 09/06/19 08/10/24 Kristina Montiel MD [address] [facility] [address] [place] [address] PCP - General Cardiology 08/11/24 Nallely Arshad RN [address] [facility] [address] [place] [address] Registered Nurse Cardiology 09/10/17 11/16/19 Lauren Parker Primary Retail Wireless Associate Cardiology 09/10/17 Kristal Clements RN Program Director/Air Personality 09/21/19 Kristal Clements, AVI Program Director/Air Personality 11/17/19 2 Farhat Choi MD [address] [place] [address] Referring Physician Pulmonary Disease 11/27/19 Maicol Santos MD [address] [place] [address] Rn Support Services Transplant 09/21/19 Sabi Simpson, AVI [address] [facility] [address] [place] [address] Registered Nurse Program Director/Air Personality 09/21/19 Tolu Wheat MD [address] [place] [address] Surgeon Cardiothoracic Surgery 08/11/24 Miscellaneous, Not In File 08/11/24 documented as of this encounter
--- OUTSIDE RECORDS SUMMARY | 2024-09-03 21:44 | XMS_ITS | Referral Summary ---
Author Organization [facility] Address [address] [place] [address] Care Team Providers Care Commercial Light Fixture Assembler Name Role Phone Lauren Parker Unavailable Unavailable Kristal Clements RN Unavailable [phone] Farhat Choi MD Unavailable [phone] Maicol Santos MD Unavailable [phone] Sabi Simpson RN Unavailable [phone] Kristina Montiel MD Primary Care Provider [phone] Tolu Wheat MD Unavailable [phone] Miscellaneous, Not In File Unavailable Unava ilable Encounters Date Type Department Care Team Description 08/24/2024 11:35 AM CDT - 08/24/2024 11:59 PM CDT Hospital Encounter [facility] [address] [place] [address] Cardiac sarcoidosis; Ventricular fibrillation (HCC) Discharge Disposition: Discharge to home or self care 08/24/2024 11:30 AM CDT Office Visit [facility] Cardiothoracic Surgery [address] [facility] Advanced Medicine 8th Floor [id number] [place] [phone] Jovita Almeida NP Cardiac sarcoidosis (Primary Dx) 08/19/[address] [facility] Cardiology [address] [facility] Advanced Medicine 8th [place] [address] [place] [address] Kristina Montiel MD 08/19/2024 12:00 PM CDT Ancillary Procedure [facility] Cardiology [facility] Advanced [facility] 8th [place] [address] [place] [address] VF (ventricular fibrillation) (HCC) (Primary Dx); Encounter for fitting or adjustment of automatic implantable cardioverter-defibr illator; NICM (nonischemic cardiomyopathy) (HCC) 08/18/[address] [facility] Cardiology [address] [place] [address] 8th [place] [address] [place] [address] Kristina Montiel MD 08/15/[address] [facility] Cardiothoracic Surgery [address] [place] [address] 8th Floor [address] Room [address] [place] [phone] Jovita Almeida NP 08/15/[address] [facility] Cardiothoracic Surgery [address] [place] [address] 8th Floor [address] Room [address] [place] [phone] Tolu Wheat MD 08/15/[address] [facility] Cardiology [address] [place] [address] 8th [place] [address] [place] [address] Kristina Montiel MD 08/11/[address] [facility] Cardiothoracic Surgery [address] [place] [address] 8th Floor [address] Room [address] [place] [phone] Jovita Almeida NP Cardiac sarcoidosis (Primary Dx); Ventricular fibrillation (HCC) 08/11/2024 Results Follow-Up [facility] Cardiology [address] [place] [address] 8th [place] [address] [place] [address] Maicol Santos MD PET/CT FDG Cardiac Sarcoid/Infection 08/10/2024 5:56 AM CDT - 08/11/2024 2:42 PM CDT Hospital Encounter [facility] [address] [place] [address] Tolu Wheat MD Cardiomyopathy, nonischemic (HCC) Discharge Disposition: Discharge to home or self care 08/10/[address] [facility] Cardiology [address] [facility] Advanced Medicine 8th [place] [address] [place] [address] Esther Saeed NP Encounter for fitting or adjustment of automatic implantable cardioverter-defibr illator (Primary Dx) 08/10/2024 8:10 AM CDT Ancillary Procedure [facility] Operating Room [address] [place] [address] 08/10/2024 8:00 AM CDT - 08/10/2024 1:25 PM CDT Surgery [facility] Operating Room [address] [place] [address] Tolu Wheat MD EXTRACTION LEAD AUTOMATIC IMPLANTABLE CARDIOVERTER DEFIBRILLATOR 08/10/2024 7:57 AM CDT Anesthesia Event [facility] Operating Room [address] [place] [address] Tsering Greenfield MD Mehta, Divya, MD 08/09/2024 10:00 AM CDT Pre-Admission Testing [facility]operative [facility] ([facility]) [address] [place] [address] Preoperative testing (Primary Dx); Bruises easily 08/03/2024 6:38 AM CDT - 08/03/2024 11:59 PM CDT Hospital Encounter [facility] ([facility]) [address] [place] [address] Discharge Disposition: Discharge to home or self care 08/03/2024 6:37 AM CDT - 08/03/2024 11:59 PM CDT Hospital Encounter [facility] ([facility]) [address] [place] [address] Cardiac sarcoidosis Discharge Disposition: Discharge to home or self care 08/03/2024 6:37 AM CDT - 08/03/2024 11:59 PM CDT Hospital Encounter [facility] ([facility]) [address] [place] [address] Discharge Disposition: Discharge to home or self care 08/03/2024 6:37 AM CDT - 08/03/2024 11:59 PM CDT Hospital Encounter [facility] [address] [place] [address] Cardiac sarcoidosis Discharge Disposition: Discharge to home or self care 08/02/[address] [facility] and [facility] Trans[facility] Heart [address] [facility] [address] Mailstop [phone] [place] [address] PeggymadelineChiquis 08/01/2024 Telephone [facility] [address] [place] [address] Mailstop [phone] [place] [address] Deny Seo 07/05/[address] [facility] Cardiothoracic Surgery [address] [place] [address] 8th [address] Room [address] [place] [phone] Tolu Wheat MD 07/01/[address] [facility] Cardiology [facility] Medical Office Building [address] [place] [address] Kristina Montiel MD 06/29/2024 11:30 AM CDT Office Visit [facility] Cardiology [address] [place] [address] 8th [place] [address] Maicol Santos MD Cardiac sarcoidosis (Primary Dx) 06/17/[address] [facility] Cardiology [address] [place] [address] 8th [place] [address] [place] [address] Kristina Montiel MD from Last 3 Months Allergies Active Allergy Reactions Criticality Noted Date Comments Amoxicillin Rash Medium 02/11/2018 Iodine Rash Medium 08/24/2024 Cephalexin Rash Medium 08/24/2024 Losartan Dizziness,Fatigue Low 04/29/2022 Penicillins Rash Medium 06/26/2016 Medications multivitamin capsule Take 1 capsule by mouth every morning Active metoprolol XL (TOPROL-XL) 50 mg extended release tablet Take 1 tablet (50 mg total) by mouth daily 90 tablet 2 01/27/20 24 2024 Active Additional Information Patient taking differently:50 mg oralNightly, Reported on 08/19/2024 cholecalciferol (Vitamin D3) 1,000 unit capsule Take 1 capsule (1,000 Units total) by mouth every morning With K2 Active cetirizine (ZyrTEC) 5 mg tablet Take 1 tablet (5 mg total) by mouth as needed for allergies Active fluticasone propionate (FLONASE) 50 mcg/actuation nasal spray Administer 1 spray into each nostril as needed for rhinitis Active oxyCODONE (ROXICODONE) 5 mg immediate release tabletIndicatio ns:Pain Take 1 tablet (5 mg total) by mouth every 4 (four) hours as needed for pain 20 tablet 08/12/19 25 Active magnesium oxide (MAG-OX) 400 mg (241.3 mg elemental magnesium) tablet Take 2 tablets (800 mg total) by mouth daily 08/13/19 25 2025 Active acetaminophen 500 mg capsule Take 2 capsules (1,000 mg total) by mouth every 6 (six) hours as needed for pain 08/12/19 25 Active predniSONE (DELTASONE) 10 mg tabletIndicatio ns:Sarcoidosis Take 1 tablet (10 mg) by mouth daily 08/13/19 25 2025 Active UNABLE TO FINDIndications :PLEXXUS PRODUCTS-X FACTOR PLUS Take by mouth every morning Med Name: PLEXUS PRODUCTS-X FACTOR PLUS 2024 Discontinued(S top Taking at Discharge) chlorhexidine (HIBICLENS) 4 % external liquidIndicatio ns:Skin Disinfection Apply topically daily as needed for wound care (for 5 days prior to procedure) 236 mL 07/06/19 25 2024 Discontinued(S top Taking at Discharge) chlorhexidine (PERIDEX) 0.12 % oral rinse Swish and spit 15 mL 3 (three) times a day (for 5 days prior to procedure) 473 mL 07/06/19 25 2024 Discontinued(S top Taking at Discharge) mupirocin (BACTROBAN) 2 % ointment Apply 1 Application to each nostril 2 (two) times a day (for 5 days prior to procedure) 22 g 07/06/19 25 2024 Discontinued(S top Taking at Discharge) predniSONE (DELTASONE) 10 mg tabletIndicatio ns:Sarcoidosis Take 1 tablet (10 mg) by mouth daily 90 tablet 1 08/02/19 25 2024 Discontinued ibuprofen 200 mg tab/cap Take 4 tablet/capsule (800 mg total) by mouth every 6 (six) hours as needed for pain 2024 Discontinued(S top Taking at Discharge) magnesium oxide 400 mg magnesium capsule Take by mouth nightly 2024 Discontinued(S top Taking at Discharge) [id number]- DPA-FISH OIL-D3 ORAL Take by mouth nightly 2024 Discontinued(S top Taking at Discharge) cephalexin (KEFLEX) 500 mg capsuleIndicati ons:Skin/Soft Tissue Infection Take 1 capsule (500 mg total) by mouth 2 (two) times a day for 7 days 14 capsule 08/12/19 25 2024 Additional Information Patient not taking.Reported on 08/19/2024 Active Problems Problem Noted Date Diagnosed Date Pacemaker failure, sequela 08/10/2024 LBBB (left bundle branch block) 09/06/2019 Ventricular fibrillation 09/06/2019 Overview (09/06/2019): 05:30 AM at home 18 min CPR Shocked multiple times Hypothermia for 3 d Degeneration of intervertebral disc of lumbosacr al region 04/01/2016 Long-term use of high-risk medication 04/02/[address] 03/06/2015 Cardiomyopathy, nonischemic (CMS/HCC) 02/08/2015 Overview (08/04/2022): TTE 2019: LV cavity size is moderately dilated. Mild segmental LV Systolic Dysfunction. EF 47% with apical-septal and basal inferior akinesis, as previously described as possible manifestation of sarcoidosis TTE July 2020 LVEF read as 35% TTE Sep 2021 LVEF 45% with similar WMA TTE June 2022 LVEF 40-45% with no changes Cardiac sarcoidosis 02/08/2015 Overview (11/24/2021): Pulmonary function test 2016. No ventilatory abnormalities. Myocardial PET done July 2017 demonstrated basal lateral, basal inferolateral, and basal anterior wall uptake which are stable inflammatory areas. Treated with methotrexate 2013 to 2016. Discontinued due to no perceived effectiveness. Treated with azathioprine 2015 to 2016, but stopped due to GI side effects Followed by Dr. Choi in Pulmonary FDG PET Sep 2021 There is redemonstrated, focally increased FDG uptake along the posterolateral wall of the left ventricle with localization to the apex, similar to prior PET/CT with possibly increased metabolic activity. No PET/CT evidence of extracardiac sarcoidosis. 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 Gender Identity Male 10/16/2020 8:46 AM CDT Sexual Orientation Not on file Last Filed Vital Signs Vital Sign Reading Time Taken Comments Blood Pressure 121/81 08/24/2024 11:43 AM CDT Pulse 93 08/24/2024 11:43 AM CDT Temperature 36.4 C (97.5 F) 08/11/2024 11:41 AM CDT Respiratory Rate 17 08/11/2024 11:4 1 AM CDT Oxygen Saturation 97% 08/24/2024 11: 43 AM CDT Inhaled Oxygen Concentration - - Weight 123.6 kg (272 lb 6.4 oz) 025 11:43 AM CDT Height 190.5 cm (6' 3) 08/24/2024 11:4 3 AM CDT Body Mass Index 34.05 08/24/2024 11:43 AM CDT Plan of Treatment Not on file Medical Devices Implanted Type Area Opener Verifier Packer [employer] Device Identifier Shelf Expiration Date Model / Serial / Lot Icd ICD N/A: Heart [employer] Tyrx Absorbable Antibacterial Envelope Large 3.3x2.9in [id number] - [id number] Implanted:Qty: 1 on 08/10/2024 by Kristina Montiel MD at [facility] N/A: Heart [employer] 05/01/2025 [id number] / / [id number] [employer] Defib Cardiac [id number] Sharon Implantable 2 Chamber [id number] - [id number] - [id number] Implanted:Qty: 1 on 08/10/2024 by Tolu Wheat MD at [facility] N/A: Chest [employer] [id number] / [id number] / [employer] Active Fixation Steroid Eluting Latex Free Sterile Right Atrium Ventricle Ultipace 52cm [id number] - [id number] Implanted:Qty: 1 on 08/10/2024 by Tolu Wheat MD at [facility] [employer] [id number] 231/52 / / Procedures Procedure Name Priority Date/Time Associated Diagnosis Comments XR CHEST PA LATERAL 2 VIEWS Schedule Routine, Read Routine (OP Routine) 08/24/2024 11:40 AM CDT Cardiac sarcoidosis Ventricular fibrillation (HCC) DEVICE CHECK - IN OFFICE Routine 08/19/2024 11:51 AM CDT Encounter for fitting or adjustment of automatic implantable cardioverter-defib rillator XR CHEST PA LATERAL 2 VIEWS IP Routine 08/11/2024 10:48 AM CDT EGFR STAT 08/10/2024 9:43 PM CDT MAGNESIUM STAT 08/10/2024 9:43 PM CDT CBC WITHOUT DIFFERENTIAL STAT 08/10/2024 9:43 PM CDT BASIC METABOLIC PANEL STAT 08/10/2024 9:43 PM CDT EGFR Routine 08/10/2024 12:21 PM CDT BASIC METABOLIC PANEL Routine 08/10/2024 12:21 PM CDT XR CHEST 1 VIEW ED Urgent/IP Urgent 08/10/2024 11:31 AM CDT AZ AN PROCEDURE PLACEHOLDER Routine 08/10/2024 11:07 AM CDT ICD LEAD DUAL 2 LEADS PPM OR ICD Routine 08/10/2024 10:44 AM CDT Cardiomyopathy, nonischemic (HCC) FL FLUOROSCOPY < 1 HOUR IP Routine 08/10/2024 10:18 AM CDT POCT HEPARIN DOSE RESPONSE, CPB Routine 08/10/2024 9:28 AM CDT AZ AN PROCEDURE PLACEHOLDER Routine 08/10/2024 8:50 AM CDT AZ AN PROCEDURE PLACEHOLDER Routine 08/10/2024 8:50 AM CDT AZ AN PROCEDURE PLACEHOLDER Routine 08/10/2024 8:50 AM CDT AZ AN PROCEDURE PLACEHOLDER Routine 08/10/2024 8:49 AM CDT AZ AN ELECTIVE ENDOTRACHEAL AIRWAY Routine 08/10/2024 8:49 AM CDT KYMBERLY ADD-ON FOR OR Routine 08/10/2024 8:0 7 AM CDT REMOVAL PACEMAKER GENERATOR/LEADS 08/10/2024 8:01 AM CDT Cardiomyopathy, nonischemic (HCC) EXTRACTION LEAD AUTOMATIC IMPLANTABLE CARDIOVERTER DEFIBRILLATOR 08/10/2024 8:01 AM CDT Cardiomyopathy, nonischemic (HCC) B CHECK SAMPLE STAT 08/10/2024 6:30 AM CDT PREPARE RBC Timed 08/10/2024 6:09 AM CDT EGFR Routine 08/09/2024 11:55 AM CDT Preoperative testing DIFFERENTIAL AUTO Routine 08/09/2024 11: 55 AM CDT Preoperative testing PROTIME-INR Routine 08/09/2024 11:55 AM CDT Preoperative testing Bruises easily CPAP APTT ALGORITHM Routine 08/09/2024 1 1:55 AM CDT Preoperative testing TYPE AND SCREEN Routine 08/09/2024 11:55 AM CDT Preoperative testing CBC WITH AUTO DIFFERENTIAL Routine 08/09/2024 11:55 AM CDT Preoperative testing COMPREHENSIVE METABOLIC PANEL Routine 08/09/2024 11:55 AM CDT Preoperative testing ECG 12-LEAD Routine 08/09/2024 11:47 AM CDT Preoperative testing PET/CT MYOCARDIAL METABOLIC EVALUATION FOR SARCOID Schedule Routine, Read Routine (OP Routine) 08/03/2024 11:26 AM CDT Cardiac sarcoidosis NM MPI SPECT SINGLE STUDY (REST) FOR SARCOIDOSIS Schedule Routine, Read Routine (OP Routine) 08/03/2024 8:30 AM CDT Cardiac sarcoidosis DEVICE CHECK - REMOTE Routine 07/01/2024 6:00 AM CDT HEPATITIS PANEL, ACUTE Routine Gen Lab 11/18/2016 4:40 PM CDT from Last 3 Months or Most Recently Relevant to Health Maintenance Results * XR Chest Pa Lateral 2 Views (08/24/2024 11:40 AM CDT) Anatomical Region Laterality Modality Body, Chest N/A Computed Radiogr aphy 08/24/2024 12:0 2 PM CDT Impressions 08/24/2024 12:02 PM CDT Comparison is made to prior from 08/11/2024. Left subclavian approach 2-lead pacemaker is unchanged. Heart size is normal. Lungs are clear. No pleural effusion or pneumothorax. Electronically signed by: Donaldo Palomares M.D. Narrative 08/24/2024 12:02 PM CDT EXAMINATION: 2 view chest radiograph Procedure Note Donaldo Palomares MD - 08/24/2024 EXAMINATION: 2 view chest radiograph IMPRESSION: Comparison is made to prior from 08/11/2024. Left subclavian approach 2-lead pacemaker is unchanged. Heart size is normal. Lungs are clear. No pleural effusion or pneumothorax. Electronically signed by: Donaldo Palomares M.D. Jovita Almeida ENGINEERING TECHNICAL ANALYST IMG XR PROCEDURES Final Re sult * DEVICE CHECK - IN OFFICE (08/19/2024 11:51 AM CDT) Anatomical Region Laterality Modality Other 08/19/2024 2:00 AM CDT Narrative 08/25/2024 10:46 AM CDT Interpretation Summary: Procedure Note Jose Baird MD - 08/25/2024 Interpretation Summary: us Esther Saeed NP CV CARDIAC SERVICES PROCEDUR ES Final Result * XR Chest Pa Lateral 2 Views (08/11/2024 10:48 AM CDT) Anatomical Region Laterality Modality Body, Chest N/A Computed Radiogr aphy 08/11/2024 10:5 8 AM CDT Impressions 08/11/2024 11:38 AM CDT Comparison with 08/10/2024. Left subclavian pacer defibrillator with leads in the right ventricle and right atrium. Mild bibasilar atelectasis. No pleural effusion or pneumothorax. Stable cardiomediastinal silhouette. Dictated by: Julieta Tomlinson MD The radiology attending physician has personally reviewed this study, and had reviewed and/or edited this written report and agrees with it. Electronically signed by: Farhat Cooney M.D. Narrative 08/11/2024 11:38 AM CDT EXAMINATION: 2 view chest radiograph Procedure Note Farhat Cooney MD - 08/11/2024 EXAMINATION: 2 view chest radiograph IMPRESSION: Comparison with 08/10/2024. Left subclavian pacer defibrillator with leads in the right ventricle and right atrium. Mild bibasilar atelectasis. No pleural effusion or pneumothorax. Stable cardiomediastinal silhouette. Dictated by: Julieta Tomlinson MD The radiology attending physician has personally reviewed this study, and had reviewed and/or edited this written report and agrees with it. Electronically signed by: Farhat Cooney M.D. us Kristina Montiel MD IMG XR PROCEDURES Final Result * eGFR (08/10/2024 9:43 PM CDT) eGFR 71 >=60 mL/min/1. 73 m2 Comment: Interpretive Data Reference Interval Normal >/= 90 mL/min/1.73m2 Mildly decreased* 60 - 89 mL/min/1.73m2 Mildly to moderately decreased 45 - 59 mL/min/1.73m2 Moderately to severely decreased 30 - 44 mL/min/1.73m2 Severely decreased 15 - 29 mL/min/1.73m2 Kidney Failure < 15 mL/min/1.73m2 *Relative to young adult level Estimated glomerular filtration rate is determined by the 2020 CKD-EPI equation recommended by the National Kidney Foundation (A Unifying Approach to GFR Estimation: Recommendations of the NKF-ASK Task Force on Reassessing the Inclusion of Race in Diagnosing Kidney Disease, JASN 2020). The CKD-EPI equation should not be used for patients with unstable renal function and has not been validated in children and those over 70. Current interpretive data was last reviewed 2020. Blood 08/10/2024 9:43 PM CDT 08/10/2024 10:21 PM CDT us Phuong Hope ENGINEERING TECHNICAL ANALYST LAB BLOOD ORDERABLES Final Result Performing Organization Address City/[facility] de Phone Number [facility] [place] [address] * (ABNORMAL) CBC without differential (08/10/2024 9:43 PM CDT) Pathologist [facility] WBC 11.77(H) 3.80 - 9.90 K/cumm Hgb 13.5 13.0 - 17.5 g/dL [facility] Hct 39.5 38.9 - 50.3 % [facility] Plt 203 150 - 400 K/cumm [facility] MPV 10.9 9.1 - 12.3 fL [facility] RBC 4.67 4.30 - 5.80 M/cumm [facility] MCV 84.6 81.3 - 96.4 fL [facility] MCH 28.9 27.1 - 33.3 pg [facility] MCHC 34.2 32.3 - 35.7 g/dL [facility] RDW CV 13.0 11.1 - 14.9 % [facility] RDW SD 40.0 35.7 - 48.1 fL [facility] NRBC abs 0.00 0.00 - 0.01 K/cumm [facility] Blood 08/10/2024 9:43 PM CDT 08/10/2024 10:21 PM CDT us Phuong Hope ENGINEERING TECHNICAL ANALYST LAB BLOOD ORDERABLES Final Result Performing Organization Address [facility] de Phone Number [facility] Department [place] [address] * Magnesium (08/10/2024 9:43 PM CDT) Pathologist [facility] Magnesium 2.1 1.4 - 2.5 mg/dL Blood 08/10/2024 9:43 PM CDT 08/10/2024 10:21 PM CDT us Phuong Hope ENGINEERING TECHNICAL ANALYST LAB BLOOD ORDERABLES Final Result Performing Organization Address [facility]/State/ZIP Co de Phone Number [facility] Department [place] [address] * Basic metabolic panel (08/10/2024 9:43 PM CDT) Sodium 137 135 - 145 mmol/L Potassium, pl 4.1 3.3 - 4.9 mmol/L [facility] Chloride 104 97 - 110 mmol/L [facility] CO2 24 22 - 32 mmol/L [facility] Anion gap 9 2 - 15 mmol/L [facility] BUN 20 6 - 25 mg/dL [facility] Creatinine 1.22 0.80 - 1.30 mg/dL [facility] Glucose 140 70 - 199 mg/dL [facility] Comment: Interpretive Data Fasting glucose >/= 126 mg/dl is diagnostic for diabetes. Fasting is defined as no caloric intake for at least 8 hours. Fasting glucose between 100 mg/dl to 125 mg/dl is diagnostic of prediabetes. In a patient with classic symptoms of hyperglycemia or hyperglycemic crisis, a random glucose >/= 200 mg/dl is diagnostic for diabetes. In the absence of unequivocal hyperglycemia, results should be confirmed by repeat testing. The classification and Diagnosis of Diabetes Diabetes Care 2021; 46: S19-S40. Current interpretive data was last revised 2022. Calcium 8.6 8.5 - 10.3 mg/dL [facility] Blood 08/10/2024 9:43 PM CDT 08/10/2024 10:21 PM CDT Phuong Hope ENGINEERING TECHNICAL ANALYST LAB BLOOD ORDERABLES Final Result [facility] Department [place] [address] * eGFR (08/10/2024 12:21 PM CDT) Pathologist [facility] eGFR >90 >=60 mL/min/1. 73 m2 Comment: Interpretive Data Reference Interval Normal >/= 90 mL/min/1.73m2 Mildly decreased* 60 - 89 mL/min/1.73m2 Mildly to moderately decreased 45 - 59 mL/min/1.73m2 Moderately to severely decreased 30 - 44 mL/min/1.73m2 Severely decreased 15 - 29 mL/min/1.73m2 Kidney Failure < 15 mL/min/1.73m2 *Relative to young adult level Estimated glomerular filtration rate is determined by the 2020 CKD-EPI equation recommended by the National Kidney Foundation (A Unifying Approach to GFR Estimation: Recommendations of the NKF-ASK Task Force on Reassessing the Inclusion of Race in Diagnosing Kidney Disease, JASN 2020). The CKD-EPI equation should not be used for patients with unstable renal function and has not been validated in children and those over 70. Current interpretive data was last reviewed 2020. Blood 08/10/2024 12:2 1 PM CDT 08/10/2024 12:25 PM CDT us Kristina Montiel MD LAB BLOOD ORDERABLES Final Res ult [facility] [place] [address] * Basic metabolic panel (08/10/2024 12:21 PM CDT) Sodium 141 135 - 145 mmol/L Potassium, pl 4.5 3.3 - 4.9 mmol/L [facility] Chloride 110 97 - 110 mmol/L [facility] CO2 25 22 - 32 mmol/L [facility] Anion gap 6 2 - 15 mmol/L [facility] BUN 24 6 - 25 mg/dL [facility] Creatinine 0.95 0.80 - 1.30 mg/dL [facility] Glucose 112 70 - 199 mg/dL [facility] Comment: Interpretive Data Fasting glucose >/= 126 mg/dl is diagnostic for diabetes. Fasting is defined as no caloric intake for at least 8 hours. Fasting glucose between 100 mg/dl to 125 mg/dl is diagnostic of prediabetes. In a patient with classic symptoms of hyperglycemia or hyperglycemic crisis, a random glucose >/= 200 mg/dl is diagnostic for diabetes. In the absence of unequivocal hyperglycemia, results should be confirmed by repeat testing. The classification and Diagnosis of Diabetes Diabetes Care 202; 46: S19-S40. Current interpretive data was last revised 2022. Calcium 8.6 8.5 - 10.3 mg/dL [facility] Blood 08/10/2024 12:2 1 PM CDT 08/10/2024 12:25 PM CDT us Kristina Montiel MD LAB BLOOD ORDERABLES Final Res ult [facility] [place] [address] * X-ray chest 1 view (08/10/2024 11:31 AM CDT) Anatomical Region Laterality Modality Body, Chest N/A Digital Radiogra phy 08/10/2024 11:5 1 AM CDT Impressions 08/10/2024 11:52 AM CDT Comparison with 03/08/2015. Left subclavian pacer defibrillator with leads in the right atrium and right ventricle. Lingular linear atelectasis. No pulmonary consolidation, pleural effusion or pneumothorax. Stable cardiac and mediastinal silhouette. Dictated by: Julieta Tomlinson MD The radiology attending physician has personally reviewed this study, and had reviewed and/or edited this written report and agrees with it. Electronically signed by: Kit Velez M.D. Narrative 08/10/2024 11:52 AM CDT EXAMINATION: 1 view chest radiograph Procedure Note Kit Velez MD - 08/10/2024 EXAMINATION: 1 view chest radiograph IMPRESSION: Comparison with 03/08/2015. Left subclavian pacer defibrillator with leads in the right atrium and right ventricle. Lingular linear atelectasis. No pulmonary consolidation, pleural effusion or pneumothorax. Stable cardiac and mediastinal silhouette. Dictated by: Julieta Tomlinson MD The radiology attending physician has personally reviewed this study, and had reviewed and/or edited this written report and agrees with it. Electronically signed by: Kit Velez M.D. Kristina Montiel MD IMG XR PROCEDURES Final Result * [place] AN PROCEDURE PLACEHOLDER (08/10/2024 11:07 AM CDT) Anatomical Region Laterality Modality Other Narrative 08/10/2024 11:07 AM CDT Tsering Greenfield MD 08/10/2024 11:12 AM KYMBERLY Date/time: Staff: Supervising anesthesiologist: Tsering Greenfield MD Performed by: Anesthesiologist: Tsering Greenfield MD Preprocedure checklist: patient identified, procedure contraindications assessed, procedure consent, risks, benefits and alternatives discussed, monitors and equipment checked, timeout performed and KYMBERLY probe inserted into esophagus using lubricating jelly General procedure Information: Reason for procedure/indications: assessment of ascending aorta, assessment of surgical repair, hemodynamic instability, hemodynamic monitoring and suspected pericardial effusion Performed: personally Procedure performed at surgeon's request: yes Results discussed with surgeon: yes Images submitted to archive: yes Patient location: OR Intubated: yes Bite blocked placed: yes Probe Insertion: easy Complications: no Probe type: adult Modalities: 2D imaging, continuous wave Doppler, pulsed wave Doppler and color Doppler Billing information: Physician requesting echo: Tolu Wheat MD CPT code: KYMBERLY placement and diagnostic exam, non-congenital (71107) ICD code(s) for medical necessity: I97.190 - Other postprocedural cardiac functional disturbances following cardiac surgery Echocardiographic and doppler measurements: Ventricles: Regional function: 1- Basal anteroseptal: hypokinetic 2- Basal anterior: hypokinetic 3- Basal anterolateral: hypokinetic 4- Basal inferolateral: akinetic 5- Basal inferior: akinetic 6- Basal inferoseptal: akinetic 7- Mid anteroseptal: hypokinetic 8- Mid anterior: hypokinetic 9- Mid anterolateral: hypokinetic 10- Mid inferolateral: akinetic 11- Mid inferior: akinetic 12- Mid inferoseptal: akinetic 13- Apical anterior: hypokinetic 14- Apical lateral: hypokinetic 15- Apical inferior: akinetic 16- Apical septal: hypokinetic 17- [place]: hypokinetic Valves: Aortic Valve: Annulus: normal Leaflet morphology: normal Leaflet motion: normal Stenosis: none Regurgitation: none Mitral valve: Leaflet morphology anterior: normal Leaflet morphology posterior: normal Leaflet motion anterior: normal Leaflet motion posterior: normal Stenosis: none Regurgitation: mild Tricuspid valve: Annulus: normal and dilated Leaflet morphology: normal Leaflet motion: normal Stenosis: none Regurgitation: trace Pulmonic valve: Annulus: normal Stenosis: none Regurgitation: mild Aorta: Ascending aorta: Size: normal Dissection: no Plaque thickness(mm): 0-3 Plaque mobile: no Aortic arch: Size: normal Dissection: no Plaque thickness(mm): 0-3 Plaque mobile: no Descending aorta: Size: normal Dissection: no Plaque thickness(mm): 0-3 Plaque mobile: no Atria: Right atrium: Size: normal Spontaneous echo contrast: No Thrombus: no Mass: No Left atrium: Size: normal (normal) Spontaneous echo contrast: No Thrombus: no Mass: No Left atrial appendage: normal Interatrial septum: normal Diastolic function and other findings: Pericardium: small effusion Pulmonary venous flow: normal Postprocedure (follow-up) KYMBERLY exam: LV: unchanged RV: unchanged Interventricular septum: unchanged Aortic valve: unchanged Mitral valve: unchanged Pulmonic valve: unchanged Tricuspid valve: unchanged Atria: unchanged Aorta: unchanged Pericardium: unchanged Left pleural: unchanged Right pleural: unchanged Postprocedure (follow-up) KYMBERLY exam comments: No evidence of growing effusion after RA lead extraction. Attestation Statement: By signing this report the attending anesthesiologist certifies that he or she has personally reviewed and interpreted the echocardiogram and has reviewed and or edited and agrees with the written comments contained within the report. us Tsering Greenfield MD ANESTHESIA ORDERABLES Fi nal Result * ICD LEAD DUAL 2 LEADS PPM OR ICD (08/10/2024 10:44 AM CDT) Anatomical Region Laterality Modality X-Ray Angiograph y Narrative 08/12/2024 9:10 AM CDT Table formatting from the original result was not included. ELECTROPHYSIOLOGY PROCEDURE REPORT: ICD Generator Replacement and New RA lead placement Room: [place] [address] Patient Name:Zelalem Alan Patient date of :1970 Date of Procedure:08/10/2024 OPERATORS: 1. Kristina Montiel MD [facility] PROCEDURES: RA lead placement ICD generator removal ICD generator replacement TOTAL CONTRAST: 0 cc TOTAL FLUROSCOPY TIME: See OR record MEDICATIONS Per OR Record INDICATION FOR PROCEDURE: RA lead noise, ICD at YULY, VF PATIENT HISTORY: 53 y/o M with prior VF, probable sarcoid, dual ICD from 2103 in the subpectoral position, and repetitive RA lead noise. His LVEF is 38%; he is NYHA Class 0. 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 The procedure is being done in the CTOR Room 311. He wants to continue with his specific current programming. PROCEDURE DESCRIPTION: Informed consent was obtained in writing prior to procedure after full detailed explanation of risks, benefits and alternatives. See CTOR report for patient prep, drape, anesthesia, local anesthesia administration and procedural time out. IV antibiotics (Vancomycin 2 gm IV and Ancef 3 gm IV ) were administered prior to the incision. RFV and LFA access was obtained by CTS team. KYMBERLY was used during the procedure for monitoring of ventricular function and for the possibility of a pericardial effusion. There was no pericardial effusion. The generator and leads were freed from the subpectoral space by Dr Wheat After successful lead extraction of the RA pacing lead Model [id number] implant date [id number] using the tightrail sheath, a long 6F 25 cm sheath was placed into the heart under fluoroscopic guidance over a [employer] 0.035 wire. I then scrubbed into the case. The new RA lead Osmin [id number] UBD 05-31-2027 was advanced through the sheath, positioned and secured in the RAA Fluoroscopy confirmed the location. RA lead testing was performed and showed adequate sensing and pacing function. The RA lead was secured proximally and distally and sutured in place with 0 silk sutures. A pursestring of 0 pericardial was placed at the access site for hemostasis by CTS staff. The ICD generator Percello FortAkumina [id number] SN [id number] (implant date 12-23-2013) was disconnected from the RV ICD lead. The leads were then attached to the new ICD generator Osmin Leija DR [id number] UBD 05-30-2026. The pocket was irrigated with sterile saline and vancomycin solution and then the generator was inserted into the pocket. Patel Braswell Lot # [id number] UBD 3-2-2028 was hydrated in saline, trimmed and placed in the pocket. The pectoral fascia was closed with interrupted 0-Vicryl and te pocket was sutured closed in three layers with 2-0, 3-0 and 4-0 Vicryl by CTS staff. Steri strips were paced over the incision and a sterile dressing was placed. The patient tolerated the procedure well without any complications. See OR log for sponge needle and instrument counts, I and O. Femoral sheaths were removed by CTS staff. IMPLANT INFORMATION Generator: Osmin [id number] [facility] 05-30-2026 RA lead: Solorio [id number] [facility] 05-31-2027 RV ICD lead: Solorio Durata Model [id number] SN [id number] Implant date 12-13-2013 All leads through the L subclavian vein LEAD IMPLANT TESTING: RA lead: 3 mv P wave; threshold 0.3V at 0.4 msec, 480 ohms RV lead: 1.0 V / 0.5 ms, 410 ohms, R wave was 11 mV ICD PROGRAMMING: Mode: DDD Low rate: 50 bpm Upper track: 130 bpm Upper sensor: 130 bpm Mode switch: On DDIR 80 ppm Paced AV: 250+ ms Sensed AV: 250 ms Amplitude/Pulse Width: RA 3.5 V/0.5 ms RV 2V/0.5 msec Tachycardia Detection and therapies VF 240 ATP during charging 40J x 6 VT 200 ATP x3, 20J, 30J, 40x2 VT 179 monitoring CONCLUSION: Successful generator change with a Osmin [id number] PALOMARES [id number] [facility] 05-30-2026 Successful RA lead placement RA lead: Solorio [id number] [facility] 05-31-2027 Successful RA pacing lead extraction RECOMMENDATIONS: IV Vancomycin for 24 hours Chest x-ray ordered Sling Bedrest overnight--OK to elevate HOB Monitor overnight No heparin or bivalarudin of any form Attestation I was present for the entire procedure and prepared this report. Kristina Montiel MD [facility] us Kristina Montiel MD CV ELECTROPHYSIOLOGY PROCS Fin al Result * FL Fluoroscopy < 1 Hour (08/10/2024 10:18 AM CDT) Narrative [facility] - 08/10/2024 10:18 AM CDT The images from this study are not interpreted by Radiology. Please refer to the physician's procedure / OR operative note. Kristina Montiel MD IMG FLUOROSCOPY PROCEDURES Fin al Result Performing Organization Address [facility] Co de Phone Number [facility] * POCT heparin dose response, CPB (08/10/2024 9:28 AM CDT) Baseline ACT POC 125 112 - 174 sec Heparin dose response slope POC 68 60 - 195 [facility] Projected Heparin Concentration POC 5.2 units/mL [facility] Blood 08/10/2024 9:28 AM CDT 08/10/2024 9:28 AM CDT Tolu Wheat MD LAB POCT ORDERABLES - DEVICE Final Result Performing Organization Address [facility] de Phone Number [facility] Department [place] [address] * [place] AN PROCEDURE PLACEHOLDER (08/10/2024 8:50 AM CDT) Narrative Adi Patel CRNA - 08/10/2024 8:50 AM CDT Adi Patel CRNA 08/10/2024 8:51 AM Arterial Line Patient location: OR Indication: continuous blood pressure monitoring Ultrasound assisted: yes Staff: Placed by: Other staff: Robbie Epstein, car wrecker prep: Prep solution: chlorhexadine/alcohol Prep: provider hat/mask, sterile gloves and sterile drape Arterial line: Catheter size: 20 gauge Catheter length: 1 and 3/4 inch Catheter type: wire-guided catheter Seldinger technique: no Laterality: right Site: radial artery Line secured: Tegaderm and tape Results: good waveform and good blood return Number of attempts: 2 Assessment: Events: patient tolerated procedure well with no complications Tsering Greenfield MD ANESTHESIA ORDERABLES Fi nal Result * [place] AN PROCEDURE PLACEHOLDER (08/10/2024 8:50 AM CDT) Adi Banda CRNA - 08/10/2024 8:50 AM CDT Adi Patel CRNA 08/10/2024 8:50 AM Peripheral IV Catheter Staff: Placed by: ROTARY SWAGING MACHINE OPERATOR: Adi Patel CRNA PIV line: Laterality: right Site: foot Catheter size: 16 g Technique: anatomical landmarks Procedure details: good blood return Number of attempts: 1 Tsering Greenfield MD ANESTHESIA ORDERABLES Fi nal Result * [place] AN PROCEDURE PLACEHOLDER (08/10/2024 8:50 AM CDT) Adi Banda CRNA - 08/10/2024 8:50 AM CDT Adi Patel CRNA 08/10/2024 8:50 AM Peripheral IV Catheter Staff: Placed by: ROTARY SWAGING MACHINE OPERATOR: Adi Patel CRNA Preprocedure prep: Prep solution: chlorhexadine PPE: gloves PIV line: Laterality: left Site: wrist Catheter size: 16 g Technique: anatomical landmarks Procedure details: good blood return Number of attempts: 1 Tsering Greenfield MD ANESTHESIA ORDERABLES Fi nal Result * [place] AN ELECTIVE ENDOTRACHEAL AIRWAY, [place] AN PROCEDURE PLACEHOLDER (08/10/2024 8:49 AM CDT) Adi Banda CRNA - 08/10/2024 8:49 AM CDT Adi Patel CRNA 08/10/2024 8:50 AM Airway Patient location: OR Urgency: elective Indications for airway management: anesthesia Difficult airway: no Staff: Placed by: Other staff: Robbie Epstein RN Emergent airway documentation: Risks and benefits discussed: yes Consent obtained: yes Consent given by: patient Airway prep: Preoxygenated: yes Patient position: sniffing Mask difficulty assessment: 2 - vent by mask + OA or adjuvant Spontaneous ventilation during airway: absent Sedation level during airway: GA Final airway details: Final airway type: endotracheal airway Tube type: ETT ETT size: 8.0 mm Cuffed: yes Technique used for successful ETT placement: video laryngoscopy Devices/Methods used in placement: stylet Insertion site: oral Blade type: Mak Video blade type: Carver Blade size: 4 Cormack-Lehane (video): grade I - full view of glottis Initial cuff pressure: 27 cm H2O Cuff volume: 7 mL Cuff inflated with: air ETT to lips: 24 cm Placement verified by: auscultation and CO2 detection Airway secured with: silk tape Number of attempts: 1 Planned trial extubation: yes us Tsering Greenfield MD ANESTHESIA ORDERABLES Fi nal Result * KYMBERLY Add-On For OR (08/10/2024 8:07 AM CDT) Narrative [facility] PROSOLV_CARDIOREPORT_CONS SCIMAGE - 08/10/2024 8:07 AM CDT Procedure Auto Finalized by Rule: BW CV KYMBERLY DURING CASE OR Please see the Anesthesiologist's Procedure Note for the results. us Tsering Greenfield MD CV ECHO PROCEDURES Final Result Performing Organization Address [facility]/ZIP Co de Phone Number [facility] PROSOLV_CARDIOREPORT_CONS SCIMAGE * Check Sample (08/10/2024 6:30 AM CDT) ABO Rh O Positive [facility] HCLL OTHER 08/10/2024 6:30 AM CDT 08/10/2024 7:40 AM CDT us Tolu Wheat MD LAB BLOOD ORDERABLES Final Re sult Performing Organization Address City/[facility]/ZIP Co de Phone Number [facility] Department [place] [address] [facility] * Prepare RBC: 2 Units (08/10/2024 6:09 AM CDT) Product code [id number] [facility] Unit Number [id number] 6-N [facility] Product Blood Type OPOS [facility] Dispense Status RETURNED [facility] Product code [id number] Unit Number [id number] 9-C [facility] Product Blood Type OPOS [facility] Dispense Status RETURNED [facility] Blood 08/10/2024 6:09 AM CDT 08/10/2024 6:08 AM CDT Narrative [facility] - 08/10/2024 10:55 AM CDT Specify Procedure:->lead removal Are special requirements needed? (All products are leukoreduced and CMV- safe)- >No Date required:-[id number] LRRBC # of [id number] Reasons:-Hold for procedure (specify procedure)} Kieran Hill MD BLOOD BANK PRODUCT ORDER JOSE L Final Result Performing Organization Address City/[facility] Co de Phone Number [facility] [place] [address] * eGFR (08/09/2024 11:55 AM CDT) eGFR 84 >=60 mL/min/1. 73 m2 Comment: Interpretive Data Reference Interval Normal >/= 90 mL/min/1.73m2 Mildly decreased* 60 - 89 mL/min/1.73m2 Mildly to moderately decreased 45 - 59 mL/min/1.73m2 Moderately to severely decreased 30 - 44 mL/min/1.73m2 Severely decreased 15 - 29 mL/min/1.73m2 Kidney Failure < 15 mL/min/1.73m2 *Relative to young adult level Estimated glomerular filtration rate is determined by the 2020 CKD-EPI equation recommended by the National Kidney Foundation (A Unifying Approach to GFR Estimation: Recommendations of the NKF-ASK Task Force on Reassessing the Inclusion of Race in Diagnosing Kidney Disease, JASN 2020). The CKD-EPI equation should not be used for patients with unstable renal function and has not been validated in children and those over 70. Current interpretive data was last reviewed 2020. Blood 08/09/2024 11:5 5 AM CDT 08/09/2024 12:30 PM CDT Kieran Hill MD LAB BLOOD ORDERABLES Fin al Result [facility] [place] [address] * (ABNORMAL) Differential, auto (08/09/2024 11:55 AM CDT) Neutrophil abs 4.21 1.50 - 6.50 K/cumm Imm gran abs 0.14(H) 0.00 - 0.10 K/cumm [facility] Lymphocyte abs 2.55 0.80 - 3.30 K/cumm [facility] Monocyte abs 0.71 0.20 - 0.80 K/cumm [facility] Eosinophil abs 0.36 0.00 - 0.50 K/cumm [facility] Basophil abs 0.10 0.00 - 0.10 K/cumm [facility] Neutrophil pct 52.2 % [facility] Comment: Interpretive Data Percent cell count reference ranges are not reported, since discordance with absolute values may lead to misinterpretation of CBC data. Current Interpretive Data was last revised on 2017. Imm gran pct 1.7 % [facility] Comment: Interpretive Data Percent cell count reference ranges are not reported, since discordance with absolute values may lead to misinterpretation of CBC data. Current Interpretive Data was last revised on 2017. Lymphocyte pct 31.6 % [facility] Comment: Interpretive Data Percent cell count reference ranges are not reported, since discordance with absolute values may lead to misinterpretation of CBC data. Current Interpretive Data was last revised on 2017. Monocyte pct 8.8 % [facility] Comment: Interpretive Data Percent cell count reference ranges are not reported, since discordance with absolute values may lead to misinterpretation of CBC data. Current Interpretive Data was last revised on 2017. Eosinophil pct 4.5 % [facility] Comment: Interpretive Data Percent cell count reference ranges are not reported, since discordance with absolute values may lead to misinterpretation of CBC data. Current Interpretive Data was last revised on 2017. Basophil pct 1.2 % [facility] Comment: Interpretive Data Percent cell count reference ranges are not reported, since discordance with absolute values may lead to misinterpretation of CBC data. Current Interpretive Data was last revised on 2017. Blood 08/09/2024 11:5 5 AM CDT 08/09/2024 12:30 PM CDT Kieran Hill MD LAB BLOOD ORDERABLES Fin al Result Performing Organization Address [facility] de Phone Number [facility] [place] [address] * CPAP aPTT algorithm (08/09/2024 11:55 AM CDT) Pathologist [facility] aPTT 33 28 - 38 sec Comment: Interpretive Data Heparin therapeutic range: 66.0 - 100.0 seconds. Range based on correlation with therapeutic heparin activity range of 0.3 - 0.7 Units/mL. Current interpretive data was last revised on 2022. Blood 08/09/2024 11:5 5 AM CDT 08/09/2024 12:26 PM CDT Kieran Hill MD LAB BLOOD ORDERABLES Fin al Result Performing Organization Address [facility] [place] [address] * CBC with auto differential (08/09/2024 11:55 AM CDT) [facility] WBC 8.07 3.80 - 9.90 K/cumm Hgb 15.1 13.0 - 17.5 g/dL [facility] Hct 44.6 38.9 - 50.3 % [facility] Plt 194 150 - 400 K/cumm [facility] MPV 11.0 9.1 - 12.3 fL [facility] RBC 5.24 4.30 - 5.80 M/cumm [facility] MCV 85.1 81.3 - 96.4 fL [facility] MCH 28.8 27.1 - 33.3 pg [facility] MCHC 33.9 32.3 - 35.7 g/dL [facility] RDW CV 13.0 11.1 - 14.9 % [facility] RDW SD 39.7 35.7 - 48.1 fL [facility] NRBC abs 0.00 0.00 - 0.01 K/cumm [facility] Blood 08/09/2024 11:5 5 AM CDT 08/09/2024 12:30 PM CDT Kieran Hill MD LAB BLOOD ORDERABLES Fin al Result Performing Organization Address [facility] de Phone Number [facility] [place] [employer] [place] [address] * Protime-INR (08/09/2024 11:55 AM CDT) PT 10.0 9.7 - 13.0 sec INR 0.93 0.90 - 1.20 [facility] Comment: Interpretive data Oral anticoagulant therapeutic ranges: Venous thromboembolism prophylaxis or treatment: 2.0-3.0 CARDIOLOGY Standard range: 2.0-3.0 High-intensity range: 2.5-3.5 Refer to indication-specific guidelines for appropriate target ranges for prosthetic heart valve replacement. Current interpretive data was last revised on 2019. Blood 08/09/2024 11:5 5 AM CDT 08/09/2024 12:26 PM CDT Kieran Hill MD LAB BLOOD ORDERABLES Fin al Result Performing Organization Address [facility] de Phone Number [facility] [place] [address] * Type and screen (08/09/2024 11:55 AM CDT) ABO Rh O Positive [place], indirect Negative [facility] Blood 08/09/2024 11:5 5 AM CDT 08/09/2024 12:59 PM CDT Narrative [facility] - 08/09/2024 2:03 PM CDT Has the patient had Daratumumab or Isatuximab in the past 6 months?->Unknown Kieran Hill MD LAB BLOOD BANK TEST ORDPhan LEVY Final Result [facility] [place] [address] * Comprehensive metabolic panel (08/09/2024 11:55 AM CDT) Sodium 144 135 - 145 mmol/L Potassium, pl 3.9 3.3 - 4.9 mmol/L [facility] Chloride 107 97 - 110 mmol/L [facility] CO2 29 22 - 32 mmol/L [facility] Anion gap 8 2 - 15 mmol/L [facility] BUN 24 6 - 25 mg/dL [facility] Creatinine 1.06 0.80 - 1.30 mg/dL [facility] Glucose 83 70 - 199 mg/dL [facility] Comment: Interpretive Data Fasting glucose >/= 126 mg/dl is diagnostic for diabetes. Fasting is defined as no caloric intake for at least 8 hours. Fasting glucose between 100 mg/dl to 125 mg/dl is diagnostic of prediabetes. In a patient with classic symptoms of hyperglycemia or hyperglycemic crisis, a random glucose >/= 200 mg/dl is diagnostic for diabetes. In the absence of unequivocal hyperglycemia, results should be confirmed by repeat testing. The classification and Diagnosis of Diabetes Diabetes Care 2021; 46: S19-S40. Current interpretive data was last revised 2022. Calcium 9.3 8.5 - 10.3 mg/dL [facility] Bilirubin, total 0.4 0.1 - 1.2 mg/dL [facility] Protein, pl 6.7 6.5 - 8.5 g/dL [facility] Albumin 4.3 3.5 - 5.0 g/dL [facility] Alk phos 69 40 - 130 Units/L [facility] ALT 35 7 - 55 Units/L [facility] AST 26 10 - 50 Units/L [facility] Blood 08/09/2024 11:5 5 AM CDT 08/09/2024 12:30 PM CDT Kieran Hill MD LAB BLOOD ORDERABLES Fin al Result [facility] Department of Laboratories [place] [address] * ECG 12 lead (08/09/2024 11:47 AM CDT) Ventricular Rate EKG/Min 71 BPM [facility] Atrial Rate 71 BPM [facility] AZ-Interval (MSEC) 172 ms [facility] QRS-Interval (MSEC) 164 ms [facility] QT-Interval (MSEC) 440 ms [facility] QTc 478 ms [facility] P [place] 110 degrees [facility] R [place] 3 degrees [facility] T [place] 237 degrees [facility] Diagnosis Sinus rhythm with Premature atrial complexes Left bundle branch block Abnormal ECG No previous ECGs available Confirmed by Santana Peterson MD ([id number]) on 08/11/2024 9:52:51 AM [facility] 08/09/2024 11:4 7 AM CDT 08/11/2024 9:52 AM CDT Kieran Hill MD ECG ORDERABLES Final Re sult Performing Organization Address [facility]/ZIP Co de Phone Number [facility] * PET/CT FDG Cardiac Sarcoid/Infection (08/03/2024 11:26 AM CDT) Anatomical Region Laterality Modality N/A Positron Emissio n Tomography (PET) 08/03/2024 2:20 PM CDT Impressions 08/03/2024 2:25 PM CDT 1. Redemonstration of abnormal and intense myocardial FDG uptake along the posterolateral wall of the left ventricle, mildly decreased in intensity since prior study dating 10/14/2021. 2. No evidence of extracardiac inflammation. Rosita Jones and Oscar participated in the interpretation of the study Dictated by: Nati Montero MD The radiology attending physician has personally reviewed this study, and had reviewed and/or edited this written report and agrees with it. Electronically signed by: Lex Cedeño M.D. Narrative 08/03/2024 2:25 PM CDT EXAMINATION: MYOCARDIAL PET/CT (METABOLISM) DATE OF STUDY: 08/03/2024 SCANNER: [employer] N mCT RADIOPHARMACEUTICAL: 16.09 mCi F-18 Fluorodeoxyglucose (FDG) i.v. 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 TECHNIQUE: The patient fasted for approximately 17 hours prior to administration of FDG. The patient had been instructed to avoid carbohydrates (and consume only proteins and fat) during the last meal prior to fasting, and the patient did comply with these instructions. The patient's fasting blood glucose level, measured by glucometer before injection of FDG, was 94 mg/dL. After intravenous administration of FDG, noncontrast CT images were obtained for attenuation correction and for fusion with emission PET images to allow for anatomical localization of findings. Emission PET images were then obtained. The study was interpreted on the [employer] workstation. Scanned area: upper thorax to the lower thorax; the time from injection of FDG to start of imaging for this scan position was 78 minutes. COMPARISON: PET/CT dated 10/14/2021, myocardial SPECT imaging dated 10/14/2021 FINDINGS: There is redemonstration of FDG avidity along the posterolateral wall of the left ventricle, similar in extent with SUV 13.4. There is mildly decreased intensity since prior study, previously, SUV was 15.2. Additional CT findings. Pacemaker with leads terminating in the right atrium and the right ventricle. Degenerative changes in the spine. Procedure Note Lex Cedeño MD - 08/03/2024 EXAMINATION: MYOCARDIAL PET/CT (METABOLISM) DATE OF STUDY: 08/03/2024 SCANNER: [employer] N mCT RADIOPHARMACEUTICAL: 16.09 mCi F-18 Fluorodeoxyglucose (FDG) i.v. 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 TECHNIQUE: The patient fasted for approximately 17 hours prior to administration of FDG. The patient had been instructed to avoid carbohydrates (and consume only proteins and fat) during the last meal prior to fasting, and the patient did comply with these instructions. The patient's fasting blood glucose level, measured by glucometer before injection of FDG, was 94 mg/dL. After intravenous administration of FDG, noncontrast CT images were obtained for attenuation correction and for fusion with emission PET images to allow for anatomical localization of findings. Emission PET images were then obtained. The study was interpreted on the [employer] workstation. Scanned area: upper thorax to the lower thorax; the time from injection of FDG to start of imaging for this scan position was 78 minutes. COMPARISON: PET/CT dated 10/14/2021, myocardial SPECT imaging dated 10/14/2021 FINDINGS: There is redemonstration of FDG avidity along the posterolateral wall of the left ventricle, similar in extent with SUV 13.4. There is mildly decreased intensity since prior study, previously, SUV was 15.2. Additional CT findings. Pacemaker with leads terminating in the right atrium and the right ventricle. Degenerative changes in the spine. IMPRESSION: 1. Redemonstration of abnormal and intense myocardial FDG uptake along the posterolateral wall of the left ventricle, mildly decreased in intensity since prior study dating 10/14/2021. 2. No evidence of extracardiac inflammation. Rosita Jones and Oscar participated in the interpretation of the study Dictated by: Nati Montero MD The radiology attending physician has personally reviewed this study, and had reviewed and/or edited this written report and agrees with it. Electronically signed by: Lex Cedeño M.D. us Maicol Santos MD IMG PET PROCEDURES Final Result * NM MPI SPECT Single Study (Rest) for Sarcoidosis (08/03/2024 8:30 AM CDT) Anatomical Region Laterality Modality Body N/A Nuclear Medicine 08/03/2024 2:16 PM CDT Impressions 08/03/2024 2:29 PM CDT 1. Moderate-to- severe rest hypoperfusion in the basal- and mid-segments septally, that appears a bit more pronounced as compared to prior study dating 10/14/2021. No corresponding FDG uptake on FDG PET, suggesting scar tissue. 2. Severe left ventricular enlargement with global hypokinesis and akinesis septally. LVEF about 27%. Please see separate FDG-PET report for assessment of inflammation. (s). Robert and Oscar also participated in the interpretation of this examination. Dictated by: Nati Montero MD The radiology attending physician has personally reviewed this study, and had reviewed and/or edited this written report and agrees with it. Electronically signed by: Lex Cedeño M.D. Narrative 08/03/2024 2:29 PM CDT EXAMINATION: MYOCARDIAL IMAGING (REST/SPECT-CT) DATE OF STUDY: 08/03/2024 RADIOPHARMACEUTICAL: 31.42 mCi Tc-99m tetrofosmin i.v. HISTORY: 53-year-old man with nonischemic cardiomyopathy, mild left ventricular systolic dysfunction, radiographically diagnosed sarcoidosis, on treatment with prednisone 5 mg per day. The patient's body mass index (BMI) was 34.25. FINDINGS: Standard myocardial perfusion images obtained after injection of tracer under resting conditions.. Images were obtained in a supine position. Low-dose CT images spanning the heart were obtained for attenuation correction. COMPARISON: PET/CT dated 10/14/2021, myocardial SPECT imaging dated 10/14/2021. The projection images were reviewed for image quality, and reveal no significant artifacts. Moderate-to- severe rest hypoperfusion in the basal- and mid-segments septally, that appears a bit more pronounced as compared to prior study dating 10/14/2021. Gated images demonstrate severely increased left ventricular volume, global hypokinesia and akinesis of the septum and decreased ejection fraction of 27 % (normal >45%). Incidental findings on the low-dose CT images: Degenerative changes in the spine. Pacemaker with leads in the right atrium and right ventricle. Procedure Note Lex Cedeño MD - 08/03/2024 EXAMINATION: MYOCARDIAL IMAGING (REST/SPECT-CT) DATE OF STUDY: 08/03/2024 RADIOPHARMACEUTICAL: 31.42 mCi Tc-99m tetrofosmin i.v. HISTORY: 53-year-old man with nonischemic cardiomyopathy, mild left ventricular systolic dysfunction, radiographically diagnosed sarcoidosis, on treatment with prednisone 5 mg per day. The patient's body mass index (BMI) was 34.25. FINDINGS: Standard myocardial perfusion images obtained after injection of tracer under resting conditions.. Images were obtained in a supine position. Low-dose CT images spanning the heart were obtained for attenuation correction. COMPARISON: PET/CT dated 10/14/2021, myocardial SPECT imaging dated 10/14/2021. The projection images were reviewed for image quality, and reveal no significant artifacts. Moderate-to- severe rest hypoperfusion in the basal- and mid-segments septally, that appears a bit more pronounced as compared to prior study dating 10/14/2021. Gated images demonstrate severely increased left ventricular volume, global hypokinesia and akinesis of the septum and decreased ejection fraction of 27 % (normal >45%). Incidental findings on the low-dose CT images: Degenerative changes in the spine. Pacemaker with leads in the right atrium and right ventricle. IMPRESSION: 1. Moderate-to- severe rest hypoperfusion in the basal- and mid-segments septally, that appears a bit more pronounced as compared to prior study dating 10/14/2021. No corresponding FDG uptake on FDG PET, suggesting scar tissue. 2. Severe left ventricular enlargement with global hypokinesis and akinesis septally. LVEF about 27%. Please see separate FDG-PET report for assessment of inflammation. (s)Caitlin Jones and Oscar also participated in the interpretation of this examination. Dictated by: Nati Montero MD The radiology attending physician has personally reviewed this study, and had reviewed and/or edited this written report and agrees with it. Electronically signed by: Lex Cedeño M.D. us Maicol Santos MD [facility] PROCEDURES Final Result * DEVICE CHECK - REMOTE (07/01/2024 6:00 AM CDT) Anatomical Region Laterality Modality Other 07/01/2024 6:00 AM CDT Narrative 07/07/2024 8:10 AM CDT Interpretation Summary: Battery and Leads (BL) Less than 6 months of battery longevity noted --- 3 months remaining (this is an estimate based on prior usage) Normal parameters identified on lead(s) Presenting Rhythm (AZ) Atrial Sensing-Ventricular Sensing (-VS) --- rate 63 Arrhythmic events (AE) Noise Oversensing is noted --- 1613 Atrial mode switches due to noise / over- sensing Nonsustained VT event(s) identified --- One NS-VT episode. Duration: 3 seconds. Rate: 197 Transmission Information (TI) Device Summary Report Procedure Note Kristina Montiel MD - 07/07/2024 Interpretation Summary: Battery and Leads (BL) Less than 6 months of battery longevity noted --- 3 months remaining (thisis an estimate based on prior usage) Normal parameters identified on lead(s) Presenting Rhythm (AZ) Atrial Sensing-Ventricular Sensing (-VS) --- rate 63 Arrhythmic events (AE) Noise Oversensing is noted --- 1613 Atrial mode switches due to noise /over- sensing Nonsustained VT event(s) identified --- One NS-VT episode. Duration: 3seconds. Rate: 197 Transmission Information (TI) Device Summary Report us Kristina Montiel MD [facility] PROCEDURES Final Result * Hepatitis panel, acute (11/18/2016 4:40 PM CDT) Hep A IgM Nonreactive Nonreactive [facility] Comment: Interpretive Data If test is reported as GRAYZONE, new sample should be drawn in two weeks for testing. Current interpretive data was last revised on 2016. Hep B core IgM Nonreactive Nonreactive [facility] Comment: Interpretive Data If test is reported as GRAYZONE, new sample should be drawn for testing. Current interpretive data was last revised on 2016. Hep C Ab Nonreactive Nonreactive [facility] Comment: Interpretive Data Positive and greyzone results should be confirmed by a molecular method. If positive or greyzone, a second separately collected sample should be submitted for Hepatitis C Virus RNA. Detection and Quantitation by Real-Time Reverse Home Care Music Therapist-PCR.Current Interpretive data was last revised on 2016. HepBsAg Nonreactive Nonreactive [facility] Blood specimen (specimen) 11/18/2016 4:40 PM CDT 11/18/2016 4:55 PM CDT us Farhat Choi MD LAB MICROBIOLOGY - GENERAL O RDERABLES Edited Result - Final [facility] Department [place] [address] from Last 3 Months or Most Recently Relevant to Health Maintenance Insurance MEDICARE FOR LIFE MEDICARE FOR LIFE MEDICARE FOR LIFE Care Teams Commercial Light Fixture Assembler Relationship Specialty Start Date End Date Kristina Montiel MD [address] [facility] [address] [place] [id number] PCP - General Cardiology 08/11/24 Lauren Parker Primary Lead Cook Cardiology 09/10/17 Kristal Clements, AVI Toolroom Keeper 09/21/19 Farhat Choi MD [address] [facility] [address] [place] [address] Referring Physician Pulmonary Disease 11/27/19 Maicol Santos MD [address] [place] [address] Forming Machine Upkeep Mechanic Transplant 09/21/19 Sabi Simpson, RN [address] [facility] [address] [place] [address] Registered Nurse Toolroom Keeper 09/21/19 Tolu Wheat MD [id number] [place], [place] [id number] Surgeon Cardiothoracic Surgery 08/11/24 Miscellaneous, Not In File 08/11/24
--- OUTSIDE RECORDS SUMMARY | 2024-09-03 21:44 | XMS_ITS | Encounter Summary ---
Author Organization [facility] [employer] [facility] Address [address] [place] [address] Phone Care Team Providers Care County Manager Name Role Phone Gavin Hernandez MD Primary Care Provider + [phone] Nallely Arshad RN Unavailable Lauren Parker Unavailable Unavailable Monet Hernandez MD Primary Care Provider [phone] Kristal Clements RN Unavailable [phone] Kristal Clements RN Unavailable [phone] Farhat Choi MD Unavailable [phone] Maicol Santos MD Unavailable [phone] Sabi Simpson RN Unavailable [phone] Kristina Montiel MD Primary Care Provider [phone] Tolu Wheat MD Unavailable [phone] Miscellaneous, Not In File Unavailable Unava ilable Encounter Details Date Type Department Care Team (Late st Contact Info) Description 05/28/2016 Orders Only [facility] IM CAR CLINCONV Provider, MD Gil [address] [place] [id number] Social History Tobacco Use Types Packs/Day Years Used Date Smoking Tobacco: Never Assessed Sex and Gender Information Value Date Recorded Sex Assigned at Not on file 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 us Historical Provider [facility] CHRISTINA HEAD Final Result documented in this encounter Visit Diagnoses Not on filedocumented in this encounter Care Teams County Manager Relationship Specialty Start Date End Date Gavin Hernandez MD PCP - General 06/13/16 05/17/19 Monet Hernandez MD [address] [place] [address] PCP - General Family Medicine 09/06/19 08/10/24 Kristina Montiel MD [address] [facility] [address] [place] [address] PCP - General Cardiology 08/11/24 Nallely Arshad RN [address] [facility] [address] [place] [address] Registered Nurse Cardiology 09/10/17 11/16/19 Lauren Parker Primary Pediatrician Cardiology 09/10/17 Kristal Clements, RN Manager Helpdesk 09/21/19 Kristal Clements, RN Manager Helpdesk 11/17/19 2 Farhat Choi MD [address] [place] [address] Referring Physician Pulmonary Disease 11/27/19 Maicol Santos MD [address] [place] [address] Supervisor Microwave Transplant 09/21/19 Sabi Simpson, RN [address] [facility] [address] [place] [address] Registered Nurse Manager Helpdesk 09/21/19 Tolu Wheat MD [id number] [place] [address] Surgeon Cardiothoracic Surgery 08/11/24 Miscellaneous, Not In File 08/11/24 documented as of this encounter
--- OUTSIDE RECORDS SUMMARY | 2024-09-03 21:44 | XMS_ITS | Clinical Summary ---
Author Organization [facility] Address [address] [place] [address] Care Team Providers Care Terminologist Name Role Phone Lauren Parker Unavailable Unavailable Kristal Clements RN Unavailable [phone] Farhat Choi MD Unavailable [phone] Maicol Santos MD Unavailable [phone] Sabi Simpson RN Unavailable [phone] Kristina Montiel MD Primary Care Provider [phone] Tolu Wheat MD Unavailable [phone] Miscellaneous, Not In File Unavailable Unava ilable Allergies Active Allergy Reactions Criticality Noted Date [...] as needed for pain 20 tablet 08/12/19 Active magnesium oxide (MAG-OX) 400 mg (241.3 mg elemental magnesium) tablet Take 2 tablets (800 mg total) by mouth daily 08/13/19 25 2025 Active acetaminophen 500 mg capsule Take 2 capsules (1,000 mg total) by mouth every 6 (six) hours as needed for pain 08/12/19 Active predniSONE (DELTASONE) 10 mg tabletIndicatio ns:Sarcoidosis [...] nightly 2024 Discontinued(S top Taking at Discharge) [id number]- DPA-FISH OIL-D3 ORAL Take by mouth nightly [...] sarcoidosis 02/08/2015 Overview (11/24/2021): Pulmonary function test 2017. No ventilatory abnormalities. Myocardial PET done July [...] Date Resolved Date Sarcoid, cardiac 02/08/2015 11/27/2019 Encounters Date Type Department Care Team Description 08/24/2024 11:35 AM CDT - 08/24/2024 11:59 PM CDT Hospital Encounter [facility] [address] [place] [address] Cardiac sarcoidosis; Ventricular fibrillation (HCC) Discharge Disposition: Discharge to home or self care 08/24/2024 11:30 AM CDT Office Visit [facility] Cardiothoracic Surgery [address] [place] [address] Medicine 8th Floor [address] Room [address] [place] [phone] Jovita Almeida NP Cardiac sarcoidosis (Primary Dx) 08/19/2024 12:00 PM CDT Ancillary Procedure [facility] [address] [place] [address] [place] [address] [place] [address] VF (ventricular fibrillation) (HCC) (Primary Dx); Encounter for fitting or adjustment of automatic implantable cardioverter-defibr illator; NICM (nonischemic cardiomyopathy) (HCC) 08/19/[address] [facility] Card[facility] [address] [place] [address] Advanced Medicine 8th [place] [address] [place] [address] Kristina Montiel MD 08/18/[address] [facility] Cardiology [address] [place] [address] 8th [place] [address] [place] [address] Kristina Montiel MD 08/15/[address] [facility] Cardioth[facility] Surgery [address] [place] [address] Advanced [facility] 8th Floor [address] Room [address] [place] [phone] Jovita Almeida NP 08/15/[address] [facility] Cardioth[facility]acic Surgery [address] [place] [address] Floor [address] Room [address] [place] [address] Tolu Wheat MD 08/15/[address] [facility] Cardiology [address] [place] [address] 8th [place] [address] [place] [address] Kristina Montiel MD 08/11/2024 Orders Only [facility] Cardioth[facility]acic Surgery [address] [facility] 8th Floor [address] Room [address] [place] [phone] Jovita Almeida NP Cardiac sarcoidosis (Primary Dx); Ventricular fibrillation (HCC) 08/11/2024 Results Follow-Up [facility] [address] [place] [address] 8th [place] [address] [place] [address] Maicol Santos MD PET/CT FDG Cardiac Sarcoid/Infection 08/10/2024 8:10 AM CDT Ancillary Procedure [facility] Operating Room [address] [place] [address] 08/10/2024 8:00 AM CDT - 08/10/2024 1:25 PM CDT Surgery [facility] Operating Room [address] [place] [address] Tolu Wheat MD EXTRACTION LEAD AUTOMATIC IMPLANTABLE CARDIOVERTER DEFIBRILLATOR 08/10/2024 7:57 AM CDT Anesthesia Event [facility] Operating Room [address] [place] [address] Tsering Greenfield MD Mehta, Divya, MD 08/10/2024 5:56 AM CDT - 08/11/2024 2:42 PM CDT Hospital Encounter [address] [address] Tolu Wheat MD Cardiomyopathy, nonischemic (HCC) Discharge Disposition: Discharge to home or self care 08/10/2024 Orders Only [facility] [address] [place] [address] 8th [place] [address] [place] [address] Esther Saeed NP Encounter for fitting or adjustment of automatic implantable cardioverter-defibr illator (Primary Dx) 08/09/2024 10:00 AM CDT Pre-Admission Testing [facility] [address] [place] [address] Preoperative testing (Primary Dx); Bruises easily 08/03/2024 6:38 AM CDT - 08/03/2024 11:59 PM CDT Hospital Encounter [facility] [address] [place] [address] Discharge Disposition: Discharge to home or self care 08/03/2024 6:37 AM CDT - 08/03/2024 11:59 PM CDT Hospital Encounter [facility] [place] [facility] ([facility]) [address] [place] [address] Cardiac sarcoidosis Discharge Disposition: Discharge to home or self care 08/03/2024 6:37 AM CDT - 08/03/2024 11:59 PM CDT Hospital Encounter [facility] [place] [facility] ([facility]) [address] [place] [address] Discharge Disposition: Discharge to home or self care 08/03/2024 6:37 AM CDT - 08/03/2024 11:59 PM CDT Hospital Encounter [facility] [place] [facility] ([facility]) [address] [place] [address] Cardiac sarcoidosis Discharge Disposition: Discharge to home or self care 08/02/[address] [facility] Transplant Heart [address] [facility] [address] Mailstop [phone] [place] [address] Chiquis Ignacio 08/01/2024 Telephone [facility] Transplant Heart [address] [facility] [address] Mailstop [phone] [place] [address] Deny Seo 07/05/[address] [facility] Cardiothoracic Surgery [address] [facility] 8th Floor [address] Room [address] [place] [address] Tolu Wheat MD 07/01/2024 Orders Only [facility] Cardiology [address] [facility] [address] [place] [phone] Kristina Montiel MD 06/29/2024 11:30 AM CDT Office Visit [facility] Cardiology [address] [facility] 8th [place] [address] [place] [phone] Maicol Santos MD Cardiac sarcoidosis (Primary Dx) 06/17/[address] [facility] [address] [facility] 8th [place] [address] [place] [phone] Kristina Montiel MD from Last 3 Months Surgical History Surgery Date Site/Laterality Comments CT REPAIR PRIMARY TORN LIGM&/CAPSULE KNEE CRUCIAT Primary Repair Of Knee Ligament Cruciate Anterior - (Added by ) CARDIAC ELECTROPHYSIOLOGY PROCEDURE 08/10/2024 Chest/N/A Procedure: INSERT/REPLACE DUAL LEAD PACEMAKER (PPM) OR IMPLANTABLE CARDIOVERTER-DEFIBRILLATOR (ICD) ELECTRODE WO GENERATOR CHANGE [id number]; Surgeon: Kristina Montiel MD; Location: [facility] OR POD 3; Service: Cardiovascular; Laterality: N/A; Medical devices from this surgery are in the Medical Devices section. 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 - (Added by Conv) Encounter for other preproce dural examination Encounter for pre-transplant evaluation for heart transplant - (Added by Conv) Family History Medical History Relation Name Comments Atrial fibrillation Father Family h istory of atrial fibrillation - (Added by Conv) Diabetes Father Family history of diabetes mellitus - (Added by Conv) Gout Father Family history of gout - (Added by TW Conv) Hypertension Father Family history of hypertension - (Added by TW Conv)/Family history of hypertension - (Added by TW Conv) Atrial fibrillation Mother Family h istory of atrial fibrillation - (Added by Conv) Heart disease Mother Family history of cardiac disorder - (Added by Conv) Hypertension Mother Family history of hypertension - (Added by Conv)/Family history of hypertension - (Added by Conv) Relation Name Status Comments Father Mother Social History Tobacco Use Types Packs/Day Years [...] on file Legal Sex Male 6:56 AM [employer]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 Gender Identity Male 10/16/2020 8:46 AM CDT Sexual Orientation Not on file Obstetrics History Last Filed Vital Signs Vital Sign Reading [...] 08/24/2024 11:43 AM CDT Plan of Treatment Health Maintenance Due Date Last Done Comments Colon Cancer Screening-Colonoscopy 1970 Depression Screening 1970 Prostate Cancer Screening-PSA 1970 Regular Well Visit/Exam 18-64 09/26/1989 DTaP/Tdap/Td Vaccine (2 - Td or Tdap) 04/30/2021 05/01/2011, 04/05/2002, 06/08/1992 Pneumococcal vaccine <65 (3 of 3 - PCV20 or PCV21) 09/26/2021 12/11/2015, 09/14/2015 Zoster Vaccine (1 of 2) 09/26/2021 Influenza Vaccine (#1) 2024 6, 03/15/2014, 12/20/2012, Additional history exists Hepatitis B Screening Completed 03/13/2008 , 08/14/2007, 06/08/2007 Hepatitis C Screening Completed 11/18/2016, 016 Medical Devices Implanted Type Area County Manager Device Identifier Shelf Expiration Date Model / Serial / Lot Icd ICD N/A: Heart [employer] Tyrx Absorbable Antibacterial Envelope Large 3.3x2.9in [id number] - [id number] Implanted:Qty: 1 on 08/10/2024 by Kristina Montiel MD at [facility] N/A: Heart [employer] 05/01/2025 [id number] / / [id number] [employer] Defib Cardiac Gan06wk 14s29wm Hernandez Implantable 2 Chamber [id number] - [id number] - [id number] Implanted:Qty: 1 on 08/10/2024 by Tolu Wheat MD at [facility] N/A: Chest [employer] [id number] / [id number] / [employer] Active Fixation Steroid Eluting Latex Free Sterile Right Atrium Ventricle Ultipace 52cm [id number] - [id number] Implanted:Qty: 1 on 08/10/2024 by Tolu Wheat MD at [facility] [employer] [id number] 231/52 / / Procedures [...] ED Urgent/IP Urgent 08/10/2024 11:[address] AN PROCEDURE PLACEHOLDER Routine 08/10/2024 11:07 AM CDT ICD LEAD DUAL 2 LEADS PPM OR ICD Routine 08/10/2024 10:44 AM CDT Cardiomyopathy, nonischemic (HCC) FL FLUOROSCOPY < 1 HOUR IP Routine 08/10/2024 10:18 AM CDT POCT HEPARIN DOSE RESPONSE, CPB Routine 08/10/2024 9:[address] AN PROCEDURE PLACEHOLDER Routine 08/10/2024 8:[address] AN PROCEDURE PLACEHOLDER Routine 08/10/2024 8:[address] AN PROCEDURE PLACEHOLDER Routine 08/10/2024 8:[address] AN PROCEDURE PLACEHOLDER Routine 08/10/2024 8:[address] AN ELECTIVE ENDOTRACHEAL AIRWAY Routine 08/10/2024 8:49 [...] signed by: Donaldo Palomares M.D. Jovita Almeida MANAGER STATE IMG XR PROCEDURES Final Re sult * DEVICE CHECK - IN OFFICE (08/19/2024 11:51 AM CDT) Anatomical Region Laterality Modality Other 08/19/2024 2:00 AM CDT Narrative 08/25/2024 10:46 AM CDT Interpretation Summary: Procedure Note Jose Baird MD - 08/25/2024 Interpretation Summary: Esther Saeed NP CV CARDIAC SERVICES PROCEDUR [...] it. Electronically signed by: Farhat Cooney M.D. Kristina Montiel MD IMG XR PROCEDURES [...] of Race in Diagnosing Kidney Disease, JASN 202). The CKD-EPI equation should not be used for patients with unstable renal function and has not been validated in children and those over 70. Current interpretive data was last reviewed 2020. Blood 08/10/2024 9:43 PM CDT 08/10/2024 10:21 PM CDT us Phuong Hope MANAGER STATE LAB BLOOD ORDERABLES Final Result Performing Organization Address [facility] Co de Phone Number [facility] [place] [address] * (ABNORMAL) CBC without differential (08/10/2024 9:43 PM CDT) WBC 11.77(H) 3.80 - 9.90 K/cumm Hgb 13.5 13.0 - 17.5 g/dL [facility] Hct 39.5 38.9 - 50.3 % [facility] Plt 203 150 - 400 K/cumm [facility] MPV 10.9 9.1 - 12.3 fL [facility] RBC 4.67 4.30 - 5.80 M/cumm [facility] MCV 84.6 81.3 - 96.4 fL [facility] MCH 28.9 27.1 - 33.3 pg [facility] MCHC 34.2 32.3 - 35.7 g/dL [facility] RDW CV 13.0 11.1 - 14.9 % [facility] RDW SD 40.0 35.7 - 48.1 fL [facility] NRBC abs 0.00 0.00 - 0.01 K/cumm [facility] Blood 08/10/2024 9:43 PM CDT 08/10/2024 10:21 PM CDT Phuong Hope MANAGER STATE LAB BLOOD ORDERABLES Final Result [facility] Department [place] [address] * Magnesium (08/10/2024 9:43 PM CDT) Pathologist [facility] Magnesium 2.1 1.4 - 2.5 mg/dL Blood 08/10/2024 9:43 PM CDT 08/10/2024 10:21 PM CDT Phuong Hope MANAGER STATE LAB BLOOD ORDERABLES Final Result [facility] Department [place] [address] * Basic metabolic panel (08/10/2024 9:43 PM CDT) Pathologist [facility] Sodium 137 135 - 145 mmol/L Potassium, pl 4.1 3.3 - 4.9 mmol/L [facility] Chloride 104 97 - 110 mmol/L [facility] CO2 24 22 - 32 mmol/L [facility] Anion gap 9 2 - 15 mmol/L [facility] BUN 20 6 - 25 mg/dL [facility] Creatinine 1.22 0.80 - 1.30 mg/dL [facility] Glucose 140 70 - 199 mg/dL [facility] Comment: Interpretive Data Fasting glucose >/= 126 [...] 2022. Calcium 8.6 8.5 - 10.3 mg/dL [facility] Blood 08/10/2024 9:43 PM CDT 08/10/2024 10:21 PM CDT Phuong Hope NP LAB BLOOD ORDERABLES Final Result Performing Organization Address City/[facility]/ZIP Co de Phone Number [facility] Department [place] [address] * eGFR (08/10/2024 12:21 PM CDT) Pathologist [facility] eGFR >90 >=60 mL/min/1. 73 m2 Comment: [...] MD LAB BLOOD ORDERABLES Final Res ult [facility] [address] [facility] [address] [place] [address] * Basic metabolic panel (08/10/2024 12:21 PM CDT) Sodium 141 135 - 145 mmol/L Potassium, pl 4.5 3.3 - 4.9 mmol/L [facility] Chloride 110 97 - 110 mmol/L [facility] CO2 25 22 - 32 mmol/L [facility] Anion gap 6 2 - 15 mmol/L [facility] BUN 24 6 - 25 mg/dL [facility] Creatinine 0.95 0.80 - 1.30 mg/dL [facility] Glucose 112 70 - 199 mg/dL [facility] Comment: Interpretive Data Fasting glucose >/= 126 [...] 2022. Calcium 8.6 8.5 - 10.3 mg/dL [facility] Blood 08/10/2024 12:2 1 PM CDT 08/10/2024 12:25 PM CDT us Kristina Montiel MD LAB BLOOD ORDERABLES Final Res ult [facility] [address] [facility] [address] [place] [address] * X-ray chest 1 view (08/10/2024 11:31 [...] it. Electronically signed by: Kit Velez M.D. us Kristina Montiel MD IMG XR PROCEDURES Final Result * CT AN PROCEDURE PLACEHOLDER (08/10/2024 11:07 AM CDT) [...] code: KYMBERLY placement and diagnostic exam, non-congenital (67954) ICD code(s) for medical necessity: I97.190 - [...] inferior: akinetic 16- Apical septal: hypokinetic 17- [place]: hypokinetic Valves: Aortic Valve: Annulus: normal Leaflet [...] Replacement and New RA lead placement Room: [place] [address] Patient Name:Zelalem Alan Patient date of :1970 Date of Procedure:08/10/2024 OPERATORS: 1. Kristina Montiel MD [employer] PROCEDURES: RA lead placement ICD generator removal [...] the RA pacing lead Model [id number] SN [id number] implant date 81-09-04clfz using the tightrail sheath, a long 6F 25 cm sheath was placed into the heart under fluoroscopic guidance over a Confetti Gamesson 0.035 wire. I then scrubbed into the case. The new RA lead [employer] [id number] UBD 05-31-2027 was advanced through the sheath, [...] hemostasis by CTS staff. The ICD generator DAVIDsTEA 2357-40Q SN [id number] (implant date 12-23-2013) was disconnected from the RV ICD lead. The leads were then attached to the new ICD generator Osmin Leija DR [id number] SN [id number] UBD 05-30-2026. The pocket was irrigated with sterile saline and vancomycin solution and then the generator was inserted into the pocket. Patel rizwan Tyrex Lot # [id number] UBD 05-02-2027 was hydrated in saline, trimmed and placed [...] by CTS staff. IMPLANT INFORMATION Generator: Osmin Leija DR, [id number] [facility] 05-30-2026 RA lead: Solorio [id number] [facility] 05-31-2027 RV ICD lead: Solorio Durata Model [id number] SN [id number] Implant date 12-13-2013 All leads through the [...] CONCLUSION: Successful generator change with a Osmin Leija DR, [id number] [facility] 05-30-2026 Successful RA lead placement RA lead: Solorio [id number] [facility] 05-31-2027 Successful RA pacing lead extraction RECOMMENDATIONS: IV Vancomycin for 24 hours Chest x-ray ordered Sling Bedrest overnight--OK to elevate HOB Monitor overnight No heparin or bivalarudin of any form Attestation I was present for the entire procedure and prepared this report. Kristina Montiel MD [facility] us Kristina Montiel MD CV ELECTROPHYSIOLOGY PROCS Fin al Result * FL Fluoroscopy < 1 Hour (08/10/2024 10:18 AM CDT) Narrative [facility] - 08/10/2024 10:18 AM CDT The images from this study are not interpreted by Radiology. Please refer to the physician's procedure / OR operative note. Kristina Montiel MD IMG FLUOROSCOPY PROCEDURES Fin al Result Performing Organization Address [facility] Co de Phone Number [facility]_[email or web address] * POCT heparin dose response, CPB (08/10/2024 9:28 AM CDT) Baseline ACT POC 125 112 - 174 sec Heparin dose response slope POC 68 60 - 195 [facility] Projected Heparin Concentration POC 5.2 units/mL [facility] Blood 08/10/2024 9:28 AM CDT 08/10/2024 9:28 AM CDT Tolu Wheat MD LAB POCT ORDERABLES - DEVICE Final Result Performing Organization Address [facility] de Phone Number [facility] [address] [facility] [address] [place] [address] * CT AN PROCEDURE PLACEHOLDER (08/10/2024 8:50 AM CDT) Narrative Adi Patel CRNA - 08/10/2024 8:50 AM CDT Adi Patel CRNA 08/10/2024 8:51 AM Arterial Line Patient location: OR Indication: continuous blood pressure monitoring Ultrasound assisted: yes Staff: Placed by: Other staff: Robbie Epstein, recreation instructor prep: Prep solution: chlorhexadine/alcohol Prep: provider hat/mask, sterile gloves and sterile drape Arterial line: Catheter size: 20 gauge Catheter length: 1 and 3/4 inch Catheter type: wire-guided catheter Seldinger technique: no Laterality: right Site: radial artery Line secured: Tegaderm and tape Results: good waveform and good blood return Number of attempts: 2 Assessment: Events: patient tolerated procedure well with no complications us Tsering Greenfield MD ANESTHESIA ORDERABLES Fi nal Result * CT AN PROCEDURE PLACEHOLDER (08/10/2024 8:50 AM CDT) Adi Banda CRNA - 08/10/2024 8:50 AM CDT Adi Patel CRNA 08/10/2024 8:50 AM Peripheral IV Catheter Staff: Placed by: ELECTRICIAN'S HELPER: Adi Patel CRNA PIV line: Laterality: right Site: foot Catheter size: 16 g Technique: anatomical landmarks Procedure details: good blood return Number of attempts: 1 Tsering Greenfield MD ANESTHESIA ORDERABLES Fi nal Result * CT AN PROCEDURE PLACEHOLDER (08/10/2024 8:50 AM CDT) Adi Banda CRNA - 08/10/2024 8:50 AM CDT Adi Patel CRNA 08/10/2024 8:50 AM Peripheral IV Catheter Staff: Placed by: ELECTRICIAN'S HELPER: Adi Patel CRNA Preprocedure prep: Prep solution: chlorhexadine PPE: gloves PIV line: Laterality: left Site: wrist Catheter size: 16 g Technique: anatomical landmarks Procedure details: good blood return Number of attempts: 1 Result [facility] Tsering Greenfield MD ANESTHESIA ORDERABLES Fi nal Result * CT AN ELECTIVE ENDOTRACHEAL AIRWAY, CT AN PROCEDURE PLACEHOLDER (08/10/2024 8:49 AM CDT) [...] of attempts: 1 Planned trial extubation: yes Tsering Greenfield MD ANESTHESIA ORDERABLES Fi nal Result * KYMBERLY Add-On For OR (08/10/2024 8:07 AM CDT) Narrative [facility] PROSOLV_CARDIOREPORT_CONS SCIMAGE - 08/10/2024 8:07 AM CDT Procedure Auto Finalized by Rule: BW CV KYMBERLY DURING CASE OR Please see the Anesthesiologist's Procedure Note for the results. Tsering Greenfield MD CV ECHO PROCEDURES Final Result Performing Organization Address City/[facility]/ZIP Co de Phone Number [facility] PROSOLV_CARDIOREPORT_CONS SCIMAGE * Check Sample (08/10/2024 6:30 AM CDT) ABO Rh O Positive [facility] HCLL OTHER 08/10/2024 6:30 AM CDT 08/10/2024 7:40 AM CDT Tolu Wheat MD LAB BLOOD ORDERABLES Final Re sult [facility] [address] [facility] [address] Department [place] [address] [facility] * Prepare RBC: 2 Units (08/10/2024 6:09 AM CDT) Product code [id number] [facility] Unit Number [id number] [id number] [facility] Product Blood Type OPOS [facility] Dispense Status RETURNED [facility] Product code [id number] Unit Number [id number] [id number] [facility] Product Blood Type OPOS [facility] Dispense Status RETURNED [facility] Blood 08/10/2024 6:09 AM CDT 08/10/2024 6:08 AM CDT Narrative [facility] - 08/10/2024 10:55 AM CDT Specify Procedure:->lead removal Are special requirements needed? (All products are leukoreduced and CMV- safe)- >No Date required:-[id number] LRRBC # of [id number] Reasons:-Hold for procedure (specify procedure)} Kieran Hlil MD BLOOD BANK PRODUCT ORDER JOSE L Final Result [facility] [address] [facility] [address] [place] [address] * eGFR (08/09/2024 11:55 AM CDT) eGFR [...] MD LAB BLOOD ORDERABLES Fin al Result [facility] [address] [facility] [place] [address] * (ABNORMAL) Differential, auto (08/09/2024 11:55 AM CDT) Neutrophil abs 4.21 1.50 - 6.50 K/cumm Imm gran abs 0.14(H) 0.00 - 0.10 K/cumm [facility] Lymphocyte abs 2.55 0.80 - 3.30 K/cumm [facility] Monocyte abs 0.71 0.20 - 0.80 K/cumm [facility] Eosinophil abs 0.36 0.00 - 0.50 K/cumm [facility] Basophil abs 0.10 0.00 - 0.10 K[facility]cumm [facility] Neutrophil pct 52.2 % [facility] Comment: Interpretive Data Percent cell count reference ranges are not reported, since discordance with absolute values may lead to misinterpretation of CBC data. Current Interpretive Data was last revised on 2017. Imm gran pct 1.7 % [facility] Comment: Interpretive Data Percent cell count reference ranges are not reported, since discordance with absolute values may lead to misinterpretation of CBC data. Current Interpretive Data was last revised on 2017. Lymphocyte pct 31.6 % [facility] Comment: Interpretive Data Percent cell count reference ranges are not reported, since discordance with absolute values may lead to misinterpretation of CBC data. Current Interpretive Data was last revised on 2017. Monocyte pct 8.8 % [facility] Comment: Interpretive Data Percent cell count reference ranges are not reported, since discordance with absolute values may lead to misinterpretation of CBC data. Current Interpretive Data was last revised on 2017. Eosinophil pct 4.5 % [facility] Comment: Interpretive Data Percent cell count reference ranges are not reported, since discordance with absolute values may lead to misinterpretation of CBC data. Current Interpretive Data was last revised on 2017. Basophil pct 1.2 % [facility] Comment: Interpretive Data Percent cell count reference ranges are not reported, since discordance with absolute values may lead to misinterpretation of CBC data. Current Interpretive Data was last revised on 2017. Blood 08/09/2024 11:5 5 AM CDT 08/09/2024 12:30 PM CDT Kieran Hill MD LAB BLOOD ORDERABLES Fin al Result Performing Organization Address [facility] [place] [address] * CPAP aPTT algorithm (08/09/2024 11:55 AM CDT) Pathologist [facility] aPTT 33 28 - 38 sec Comment: Interpretive Data Heparin therapeutic range: 66.0 - 100.0 seconds. Range based on correlation with therapeutic heparin activity range of 0.3 - 0.7 Units/mL. Current interpretive data was last revised on 2022. Blood 08/09/2024 11:5 5 AM CDT 08/09/2024 12:26 PM CDT Kieran Hill MD LAB BLOOD ORDERABLES Fin al Result Performing Organization Address [facility] [place] [address] * CBC with auto differential (08/09/2024 11:55 AM CDT) [facility] WBC 8.07 3.80 - 9.90 K/cumm Hgb 15.1 13.0 - 17.5 g/dL [facility] Hct 44.6 38.9 - 50.3 % [facility] Plt 194 150 - 400 K/cumm [facility] MPV 11.0 9.1 - 12.3 fL [facility] RBC 5.24 4.30 - 5.80 M/cumm [facility] MCV 85.1 81.3 - 96.4 fL [facility] MCH 28.8 27.1 - 33.3 pg [facility] MCHC 33.9 32.3 - 35.7 g/dL [facility] RDW CV 13.0 11.1 - 14.9 % [facility] RDW SD 39.7 35.7 - 48.1 fL [facility] NRBC abs 0.00 0.00 - 0.01 K/cumm [facility] Blood 08/09/2024 11:5 5 AM CDT 08/09/2024 12:30 PM CDT Kieran Hill MD LAB BLOOD ORDERABLES Fin al Result Performing Organization Address [facility] de Phone Number [facility] [place] [address] * Protime-INR (08/09/2024 11:55 AM CDT) PT 10.0 9.7 - 13.0 sec INR 0.93 0.90 - 1.20 [facility] Comment: Interpretive data Oral anticoagulant therapeutic ranges: Venous thromboembolism prophylaxis or treatment: 2.0-3.0 CARDIOLOGY Standard range: 2.0-3.0 High-intensity range: 2.5-3.5 Refer to indication-specific guidelines for appropriate target ranges for prosthetic heart valve replacement. Current interpretive data was last revised on 2019. Blood 08/09/2024 11:5 5 AM CDT 08/09/2024 12:26 PM CDT Kieran Hill MD LAB BLOOD ORDERABLES Fin al Result Performing Organization Address [facility] de Phone Number [facility] [place] [address] * Type and screen (08/09/2024 11:55 AM CDT) ABO Rh O Positive [place], indirect Negative [facility] Blood 08/09/2024 11:5 5 AM CDT 08/09/2024 12:59 PM CDT Narrative [facility] - 08/09/2024 2:03 PM CDT Has the patient had Daratumumab or Isatuximab in the past 6 months?->Unknown us Kieran Hill MD LAB BLOOD BANK TEST NILESH LEVY Final Result [facility] [place] [address] * Comprehensive metabolic panel (08/09/2024 11:55 AM CDT) [facility] Sodium 144 135 - 145 mmol/L Potassium, pl 3.9 3.3 - 4.9 mmol/L [facility] Chloride 107 97 - 110 mmol/L [facility] CO2 29 22 - 32 mmol/L [facility] Anion gap 8 2 - 15 mmol/L [facility] BUN 24 6 - 25 mg/dL [facility] Creatinine 1.06 0.80 - 1.30 mg/dL [facility] Glucose 83 70 - 199 mg/dL [facility] Comment: Interpretive Data Fasting glucose >/= 126 [...] 2022. Calcium 9.3 8.5 - 10.3 mg/dL [facility] Bilirubin, total 0.4 0.1 - 1.2 mg/dL [facility] Protein, pl 6.7 6.5 - 8.5 g/dL [facility] Albumin 4.3 3.5 - 5.0 g/dL [facility] Alk phos 69 40 - 130 Units/L [facility] ALT 35 7 - 55 Units/L [facility] AST 26 10 - 50 Units/L [facility] Blood 08/09/2024 11:5 5 AM CDT 08/09/2024 12:30 PM CDT Kieran Hill MD LAB BLOOD ORDERABLES Fin al Result [facility] [place] [address] * ECG 12 lead (08/09/2024 11:47 AM CDT) Ventricular Rate EKG/Min 71 BPM [facility] Atrial Rate [address] [facility] CT-Interval (MSEC) [address] [facility] QRS-Interval (MSEC) [address] [facility] QT-Interval (MSEC) [address] [facility] QTc 478 ms [facility] P [place] [address] [facility] R [place] [address] [facility] T [place] 237 degrees [facility] Diagnosis Sinus rhythm with Premature atrial complexes Left bundle branch block Abnormal ECG No previous ECGs available Confirmed by Santana Peterson MD ([id number]) on 08/11/2024 9:52:51 AM [facility] 08/09/2024 11:4 7 AM CDT 08/11/2024 9:52 AM CDT Kieran Hill MD ECG ORDERABLES Final Re sult Performing Organization Address [facility] Co de Phone Number [facility] * PET/CT FDG Cardiac Sarcoid/Infection (08/03/2024 11:26 [...] PET/CT (METABOLISM) DATE OF STUDY: 08/03/2024 SCANNER: Re[employer] Pros N mCT RADIOPHARMACEUTICAL: 16.09 mCi F-18 Fluorodeoxyglucose [...] obtained. The study was interpreted on the [employer] workstation. Scanned area: upper thorax to the [...] PET/CT (METABOLISM) DATE OF STUDY: 08/03/2024 SCANNER: [employer] N mCT RADIOPHARMACEUTICAL: 16.09 mCi F-18 Fluorodeoxyglucose [...] obtained. The study was interpreted on the [employer] workstation. Scanned area: upper thorax to the [...] separate FDG-PET report for assessment of inflammation. ([email or web address])Caitlin Jones and Oscar also participated in the [...] Lex Cedeño M.D. us Maicol Santos MD [facility] PROCEDURES Final Result * DEVICE CHECK - REMOTE (07/01/2024 6:00 AM CDT) Anatomical Region Laterality Modality Other 07/01/2024 6:00 AM CDT Narrative 07/07/2024 8:10 AM CDT Interpretation Summary: Battery and Leads (BL) Less than 6 months of battery longevity noted --- 3 months remaining (this is an estimate based on prior usage) Normal parameters identified on lead(s) Presenting Rhythm (CT) Atrial Sensing-Ventricular Sensing (-VS) --- rate 63 [...] Normal parameters identified on lead(s) Presenting Rhythm (CT) Atrial Sensing-Ventricular Sensing (-VS) --- rate 63 [...] PM CDT) Hep A IgM Nonreactive Nonreactive [facility] Comment: Interpretive Data If test is reported as GRAYZONE, new sample should be drawn in two weeks for testing. Current interpretive data was last revised on 2016. Hep B core IgM Nonreactive Nonreactive [facility] Comment: Interpretive Data If test is reported as GRAYZONE, new sample should be drawn for testing. Current interpretive data was last revised on 2016. Hep C Ab Nonreactive Nonreactive [facility] Comment: Interpretive Data Positive and greyzone results should be confirmed by a molecular method. If positive or greyzone, a second separately collected sample should be submitted for Hepatitis C Virus RNA. Detection and Quantitation by Real-Time Reverse Sales Representative Livestock-PCR.Current Interpretive data was last revised on 2016. HepBsAg Nonreactive Nonreactive [facility] Blood specimen (specimen) 11/18/2016 4:40 PM CDT 11/18/2016 4:55 PM CDT us Farhat Choi MD LAB MICROBIOLOGY - GENERAL O RDERABLES Edited Result - Final [facility] [place] [address] from Last 3 Months or Most Recently Relevant to Health Maintenance Insurance MEDICARE [email or web address] FOR LIFE MEDICARE [email or web address] FOR LIFE MEDICARE FOR LIFE Care Teams Terminologist Relationship Specialty Start Date End Date Kristina Montiel MD [address] [address] PCP - General Cardiology 08/11/24 Lauren Parker Primary Cattle Feeder Cardiology 09/10/17 Kristal Clements RN Converting Supervisor 09/21/19 Farhat Choi MD [address] [place] [address] Referring Physician Pulmonary Disease 11/27/19 Maicol Santos MD [address] [place] [address] Fusing Line Inspector Transplant 09/21/19 Sabi Simpson RN [address] [facility] [address] [place] [address] Registered Nurse Converting Supervisor 09/21/19 Tolu Wheat MD [address] [facility] [address] [place] [address] Surgeon Cardiothoracic Surgery 08/11/24 Miscellaneous, Not In File 08/11/24
--- OUTSIDE RECORDS SUMMARY | 2024-09-03 21:44 | XMS_ITS | Encounter Summary ---
Author Organization [facility] Address [address] [place] [address] Care Team Providers Care Process Control Manager Name Role Phone Lauren Parker Unavailable Unavailable Monet Hernandez MD Primary Care Provider [phone] Kristal Clements RN Unavailable [phone] Kristal Clements RN Unavailable [phone] Farhat Choi MD Unavailable [phone] Maicol Santos MD Unavailable [phone] Sabi Simpson RN Unavailable [phone] Kristina Montiel MD Primary Care Provider [phone] Tolu Wheat MD Unavailable [phone] Miscellaneous, Not In File Unavailable Unava ilable Encounter Details Date Type Department Care Team (Late st Contact Info) Description 10/17/2020 Telephone [facility] ([facility] [address] [place] [address] Roopa Morris RN Social History Tobacco Use Types Packs/Day Years Used Date Smoking Tobacco: Never Smokeless Tobacco: Never Sex and Gender Information Value Date Recorded Sex Assigned at Not on file 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 Gender Identity Male 10/16/2020 8:46 AM CDT Sexual Orientation Not on file documented as of this encounter Plan of Treatment Not on file documented as of this encounter Visit Diagnoses Not on filedocumented in this encounter Care Teams Process Control Manager Relationship Specialty Start Date End Date Monet Hernandez MD [address] [place] [address] PCP - General Family Medicine 09/06/19 08/10/24 Kristina Montiel MD [address] [facility] [address] [place] [address] PCP - General Cardiology 08/11/24 Lauren Parker Primary Ell Tutor Cardiology 09/10/17 Kristal Clements, RN Machine Heel Builder 09/21/19 Kristal Clements, AVI Machine Heel Builder 11/17/19 2 Farhat Choi MD [address] [place] [address] Referring Physician Pulmonary Disease 11/27/19 Maicol Santos MD [address] [place] [address] Safety Belt Installer Transplant 09/21/19 Sabi Simpson, AVI [address] [facility] [address] [place] [address] Registered Nurse Machine Heel Builder 09/21/19 Toul Wheat MD [address] [facility] [address] [place] [address] Surgeon Cardiothoracic Surgery 08/11/24 Miscellaneous, Not In File 08/11/24 documented as of this encounter
[2024-09-03 21:46] VITALS: BP 163/103; PULSE 88; RESP 20; TEMP 36.7; O2SAT 98
--- NOTE | 2024-09-04 01:41 | PC.NURSE ---
Patient refused visual acuity stating that this always happens, he's given some numbing drops, they use the blue light, and he is sent home.
--- OUTSIDE RECORDS SUMMARY | 2024-09-04 01:45 | XMS_ITS ---
Author Organization [facility] Address [address] [place] [address] Care Team Providers Care Metal Fabricator Name Role Phone Keith Lauren Unavailable Unavailable Kristal Clements RN Unavailable [phone] Farhat Choi MD Unavailable [phone] Maicol Santos MD Unavailable [phone] Sabi Simpson RN Unavailable [phone] Kristina Montiel MD Primary Care Provider [phone] Tolu Wheat MD Unavailable [phone] Miscellaneous, Not In File Unavailable Unava ilable Transplant Episode Heart Candidate [facility] ([place], [place]) - [facility] Referred on 08/01/2016 Marked as Ineligible on 12/31/2017 Heart CoordinatorHistorical ProviderMD Fax: N/A Email: N/A Care Team Name Role Phone Fax Email Historical MD Trent Patent Chemist [phone] N/A N/A Lauren Parker Primary Professor Of Voice N/A N/A N/A Events Pre-Transplant Referred: 08/01/2016
--- OUTSIDE RECORDS SUMMARY | 2024-09-04 01:45 | XMS_ITS | Encounter Summary ---
Author Organization [facility] Address [address] [place] [address] Phone Care Team Providers Care Oncology Patient Navigator Name Role Phone Gavin Hernandez MD Primary Care Provider + [phone] Nallely Arshad RN Unavailable Lauren Parker Unavailable Unavailable Monet Hernandez MD Primary Care Provider [phone] Kristal Clements RN Unavailable [phone] Kristal Clements RN Unavailable [phone] Farhat Choi MD Unavailable [phone] Maicol Santos MD Unavailable [phone] Sabi Simpson RN Unavailable [phone] Kristina Montiel MD Primary Care Provider [phone] Tolu Wheat MD Unavailable [phone] Miscellaneous, Not In File Unavailable Unava ilable Encounter Details Date Type Department Care Team (Late st Contact Info) Description 03/08/2015 Orders Only [facility] Provider, MD Gil [address] [place] [address] Social History Tobacco Use Types Packs/Day Years Used Date Smoking Tobacco: Never Assessed Sex and Gender Information Value Date Recorded Sex Assigned at Not on file Legal Sex Male 6:56 AM SIGN ERECTOR Gender Identity Male 10/16/2020 8:46 AM CDT [...] on filedocumented in this encounter Care Teams Oncology Patient Navigator Relationship Specialty Start Date End Date Gavin Hernandez MD PCP - General 06/13/16 05/17/19 Monet Hernandez MD [address] [place] [address] PCP - General Family Medicine 09/06/19 08/10/24 Kristina Montiel MD [address] [facility] [address] [place] [address] PCP - General Cardiology 08/11/24 Nallely Arshad RN [address] [facility] [address] [place] [address] Registered Nurse Cardiology 09/10/17 11/16/19 Lauren Parker Primary Blueprint Reproducer Cardiology 09/10/17 Kristal Clements, RN Full Stack Php Developer 09/21/19 Kristal Clements, RN Full Stack Php Developer 11/17/19 2 Farhat Choi MD [address] [place] [address] Referring Physician Pulmonary Disease 11/27/19 Maicol Santos MD [address] [place] [address] General Forecaster Transplant 09/21/19 Sabi Simpson, RN [address] [facility] [address] [place] [address] Registered Nurse Full Stack Php Developer 09/21/19 Tolu Wheat MD [address] [facility] [address] [place] [address] Surgeon Cardiothoracic Surgery 08/11/24 Miscellaneous, Not In File 08/11/24 documented as of this encounter
--- OUTSIDE RECORDS SUMMARY | 2024-09-04 01:45 | XMS_ITS | Encounter Summary ---
Author Organization [facility] Address [address] [place] [address] Phone Care Team Providers Care Business Intelligence Architect Name Role Phone Gavin Hernandez MD Primary Care Provider + [phone] Nallely Arshad RN Unavailable Lauren Parker Unavailable Unavailable Monet Hernandez MD Primary Care Provider [phone] Kristal Clements RN Unavailable [phone] Kristal Clements RN Unavailable [phone] Farhat Choi MD Unavailable [phone] Maicol Santos MD Unavailable [phone] Sabi Simpson RN Unavailable [phone] Kristina Montiel MD Primary Care Provider [phone] Tolu Wheat MD Unavailable [phone] Miscellaneous, Not In File Unavailable Unava ilable Encounter Details Date Type Department Care Team (Late st Contact Info) Description 12/02/2016 Orders Only [facility] Provider, MD Gil [address] [place] [address] Social History Tobacco Use Types Packs/Day Years Used Date Smoking Tobacco: Never Assessed Sex and Gender Information Value Date Recorded Sex Assigned at Not on file 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 Gender Identity Male 10/16/2020 8:46 AM CDT [...] on filedocumented in this encounter Care Teams Business Intelligence Architect Relationship Specialty Start Date End Date Gavin Hernandez MD PCP - General 06/13/16 05/17/19 Monet Hernandez MD [address] [place] [address] PCP - General Family Medicine 09/06/19 08/10/24 Kristina Montiel MD [address] [facility] [address] [place] [address] PCP - General Cardiology 08/11/24 Nallely Arshad RN [address] [facility] [address] [place] [address] Registered Nurse Cardiology 09/10/17 11/16/19 Lauren Parker Primary Lining Parts Sewer Cardiology 09/10/17 Kristal Clements, RN Occupancy Specialist 09/21/19 Kristal Clements, RN Occupancy Specialist 11/17/19 2 Farhat Choi MD [address] [place] [address] Referring Physician Pulmonary Disease 11/27/19 Maicol Santos MD [address] [place] [address] Distributed Energy Systems Consultant Transplant 09/21/19 Sabi Simpson, RN [address] [facility] [address] [place] [address] Registered Nurse Occupancy Specialist 09/21/19 Tolu Wheat MD [address] [facility] [address] [place] [address] Surgeon Cardiothoracic Surgery 08/11/24 Miscellaneous, Not In File 08/11/24 documented as of this encounter
--- OUTSIDE RECORDS SUMMARY | 2024-09-04 01:45 | XMS_ITS | Encounter Summary ---
Author Organization [facility] Address [address] [place] [address] Phone Care Team Providers Care Cytologist Name Role Phone Gavin Hernandez MD Primary Care Provider + [phone] Nallely Arshad RN Unavailable Lauren Parker Unavailable Unavailable Monet Hernandez MD Primary Care Provider [phone] Kristal Clements RN Unavailable [phone] Kristal Clements RN Unavailable [phone] Farhat Choi MD Unavailable [phone] Maicol Santos MD Unavailable [phone] Sabi Simpson RN Unavailable [phone] Kristina Montiel MD Primary Care Provider [phone] Tolu Wheat MD Unavailable [phone] Miscellaneous, Not In File Unavailable Unava ilable Encounter Details Date Type Department Care Team (Late st Contact Info) Description 08/03/2016 Orders Only [facility]INCON[facility] Provider, MD Gil [address] [place] [address] Social History Tobacco Use Types Packs/Day Years Used Date Smoking Tobacco: Never Assessed Sex and Gender Information Value Date Recorded Sex Assigned at Not on file Legal Sex Male 6:56 AM HUMAN FACTORS ADVISOR LEAD Gender Identity Male 10/16/2020 8:46 AM CDT [...] on filedocumented in this encounter Care Teams Cytologist Relationship Specialty Start Date End Date Gavin Hernandez MD PCP - General 06/13/16 05/17/19 Monet Hernandez MD [address] [place] [address] PCP - General Family Medicine 09/06/19 08/10/24 Kristina Montiel MD [address] [facility] [address] [place] [address] PCP - General Cardiology 08/11/24 Nallely Arshad RN [address] [facility] [address] [place] [address] Registered Nurse Cardiology 09/10/17 11/16/19 Lauren Parker Primary Jersey Knitter Cardiology 09/10/17 Kristal Clements, RN Union Organizer 09/21/19 Kristal Clements, RN Union Organizer 11/17/19 2 Farhat Choi MD [address] [place] [address] Referring Physician Pulmonary Disease 11/27/19 Maicol Santos MD [address] [place] [address] Admissions Coordinator Transplant 09/21/19 Sabi Simpson, RN [address] [facility] [address] [place] [address] Registered Nurse Union Organizer 09/21/19 Tolu Wheat MD [address] [facility] [address] [place] [address] Surgeon Cardiothoracic Surgery 08/11/24 Miscellaneous, Not In File 08/11/24 documented as of this encounter
--- OUTSIDE RECORDS SUMMARY | 2024-09-04 01:45 | XMS_ITS | Encounter Summary ---
Author Organization [facility] Address [address] [place] [address] Care Team Providers Care Nurse Anesthetist Name Role Phone Lauren Parker Unavailable Unavailable Monet Hernandez MD Primary Care Provider [phone] Kristal Clements RN Unavailable [phone] Kristal Clements RN Unavailable [phone] Farhat Choi MD Unavailable [phone] Maicol Santos MD Unavailable [phone] Sabi Simpson RN Unavailable [phone] Kristina Montiel MD Primary Care Provider [phone] Tolu Wheat MD Unavailable [phone] Miscellaneous, Not In File Unavailable Unava ilable Encounter Details Date Type Department Care Team (Late st Contact Info) Description 10/17/2020 Telephone [facility] ([facility]) [address] [place] [address] Roopa Morris RN Social History Tobacco Use Types Packs/Day Years Used Date Smoking Tobacco: Never Smokeless Tobacco: Never Sex and Gender Information Value Date Recorded Sex Assigned at Not on file 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 Sex Male 6:56 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 Gender Identity Male 10/16/2020 8:46 AM CDT Sexual Orientation Not on file documented as of this encounter Plan of Treatment Not on file documented as of this encounter Visit Diagnoses Not on filedocumented in this encounter Care Teams Nurse Anesthetist Relationship Specialty Start Date End Date Monet Hernandez MD [address] [place] [address] PCP - General Family Medicine 09/06/19 08/10/24 Kristina Montiel MD [address] [facility] [address] [place] [address] PCP - General Cardiology 08/11/24 Lauren Parker Primary Tool Carrier Cardiology 09/10/17 Kristal Clements, RN Postdoctoral Fellow 09/21/19 Kristal Clements, AVI Postdoctoral Fellow 11/17/19 2 Farhat Choi MD [address] [place] [address] Referring Physician Pulmonary Disease 11/27/19 Maicol Santos MD [address] [place] [address] Surgical Scrub Tech Transplant 09/21/19 aSbi Simpson, AVI [address] [facility] [address] [place] [address] Registered Nurse Postdoctoral Fellow 09/21/19 Tolu Wheat MD [address] [facility] [address] [place] [address] Surgeon Cardiothoracic Surgery 08/11/24 Miscellaneous, Not In File 08/11/24 documented as of this encounter
--- OUTSIDE RECORDS SUMMARY | 2024-09-04 01:45 | XMS_ITS | Encounter Summary ---
Author Organization [facility] [facility] Address [address] [place] [address] Phone Care Team Providers Care Salt Miner Name Role Phone Gavin Hernandez MD Primary Care Provider + [phone] Nallely Arshad RN Unavailable Lauren Parker Unavailable Unavailable Monet Hernandez MD Primary Care Provider [phone] Kristal Clements RN Unavailable +[phone] Kristal Clements RN Unavailable [phone] Farhat Choi MD Unavailable +[phone] Maicol Santos MD Unavailable [phone] Sabi Simpson RN Unavailable +[phone] Kristina Montiel MD Primary Care Provider +[phone] Tolu Wheat MD Unavailable +[phone] Miscellaneous, Not In File Unavailable Unava ilable Encounter Details Date Type Department Care Team (Late st Contact Info) Description 02/05/2017 Orders Only [facility] Provider, MD Gil [address] [place] [address] Social History Tobacco Use Types Packs/Day Years Used Date Smoking Tobacco: Never Assessed Sex and Gender Information Value Date Recorded Sex Assigned at Not on file Legal Sex Male 6:56 AM COUNSELOR MARRIAGE AND FAMILY Gender Identity Male 10/16/2020 8:46 AM CDT [...] on filedocumented in this encounter Care Teams Salt Miner Relationship Specialty Start Date End Date Gavin Hernandez MD PCP - General 06/13/16 05/17/19 Monet Hernandez MD [address] [place] [address] PCP - General Family Medicine 09/06/19 08/10/24 Kristina Montiel MD [address] [facility] [address] [place] [address] PCP - General Cardiology 08/11/24 Nallely Arshad RN [address] [facility] [address] [place] [address] Registered Nurse Cardiology 09/10/17 11/16/19 Lauren Parker Primary Chemistry Laboratory Technician Cardiology 09/10/17 Kristal Clements, RN Wash Mill Operator 09/21/19 Kristal Clements, RN Wash Mill Operator 11/17/19 2 Farhat Choi MD [address] [place] [address] Referring Physician Pulmonary Disease 11/27/19 Maicol Santos MD [address] [place] [address] Spice Room Worker Transplant 09/21/19 Sabi Simpson, RN [address] [facility] [address] [place] [address] Registered Nurse Wash Mill Operator 09/21/19 Tolu Wheat MD [address] [place] [address] Surgeon Cardiothoracic Surgery 08/11/24 Miscellaneous, Not In File 08/11/24 documented as of this encounter
--- OUTSIDE RECORDS SUMMARY | 2024-09-04 01:45 | XMS_ITS | Encounter Summary ---
Author Organization [facility] Address [address] [place] [address] Phone Care Team Providers Care Human Resources Team Member Name Role Phone Gavin Hernandez MD Primary Care Provider + [phone] Nallely Arshad RN Unavailable Lauren Parker Unavailable Unavailable Monet Hernandez MD Primary Care Provider [phone] Kristal Clements RN Unavailable [phone] Kristal Clements RN Unavailable [phone] Farhat Choi MD Unavailable +[phone] Maicol Santos MD Unavailable [phone] Sabi Simpson RN Unavailable [phone] Kristina Montiel MD Primary Care Provider [phone] Tolu Wheat MD Unavailable +[phone] Miscellaneous, Not In File Unavailable Unava ilable Encounter Details Date Type Department Care Team (Late st Contact Info) Description 05/28/2016 Orders Only [facility] Provider, MD Gil [address] [place] [address] Social History Tobacco Use Types Packs/Day Years Used Date Smoking Tobacco: Never Assessed Sex and Gender Information Value Date Recorded Sex Assigned at Not on file Legal Sex Male 6:56 AM RAMP AGENT Gender Identity Male 10/16/2020 8:46 AM CDT [...] on filedocumented in this encounter Care Teams Human Resources Team Member Relationship Specialty Start Date End Date Gavin Hernandez MD PCP - General 06/13/16 05/17/19 Monet Hernandez MD [address] [place] [address] PCP - General Family Medicine 09/06/19 08/10/24 Kristina Montiel MD [address] [facility] [address] [place] [address] PCP - General Cardiology 08/11/24 Nallely Arshad RN [address] [facility] [address] [place] [address] Registered Nurse Cardiology 09/10/17 11/16/19 Lauren Parker Primary Shellfish Bed Worker Cardiology 09/10/17 Kristal Clements, RN Ad Writer 09/21/19 Kristal Clements, RN Ad Writer 11/17/19 2 Farhat Choi MD [address] [place] [address] Referring Physician Pulmonary Disease 11/27/19 Maicol Santos MD [address] [place] [address] Deputy Assessor Transplant 09/21/19 Sabi Simpson, RN [address] [facility] [address] [place] [address] Registered Nurse Ad Writer 09/21/19 Tolu Wheat MD [address] [place] [address] Surgeon Cardiothoracic Surgery 08/11/24 Miscellaneous, Not In File 08/11/24 documented as of this encounter
--- OUTSIDE RECORDS SUMMARY | 2024-09-04 01:46 | XMS_ITS | Encounter Summary ---
Author Organization [facility] Address [address] [place] [address] Phone Care Team Providers Care Emergency Dispatch Operator Name Role Phone Gavin Hernandez MD Primary Care Provider [phone] Nallely Arshad RN Unavailable Lauren Parker Unavailable Unavailable Monet Hernandez MD Primary Care Provider [phone] Kristal Clements RN Unavailable [phone] Kristal Clements RN Unavailable [phone] Farhat Choi MD Unavailable +[phone] Maicol Santos MD Unavailable +[phone] Sabi Simpson RN Unavailable [phone] Kristina Montiel MD Primary Care Provider [phone] Tolu Wheat MD Unavailable [phone] Miscellaneous, Not In File Unavailable Unava ilable Encounter Details Date Type Department Care Team (Late st Contact Info) Description 08/13/[address] [facility] Scheduling [address] [place], [place] [id number] Gavin Hernandez MD [address] [facility] [address] [place] [address] Social History Tobacco Use Types Packs/Day Years Used Date Smoking Tobacco: Never Sex and Gender Information Value Date Recorded Sex Assigned at Not on file Legal Sex Male 6:56 AM HEALTH EDITOR Gender Identity Male 10/16/2020 8:46 AM CDT Sexual Orientation Not on file documented as of this encounter Plan of Treatment Not on file documented as of this encounter Visit Diagnoses Not on filedocumented in this encounter Care Teams Emergency Dispatch Operator Relationship Specialty Start Date End Date Gavin Hernandez MD PCP - General 06/13/16 05/17/19 Monet Hernandez MD [address] [place] [address] PCP - General Family Medicine 09/06/19 08/10/24 Kristina Montiel MD [address] [facility] [address] [place] [address] PCP - General Cardiology 08/11/24 Nallely Arshad RN [address] [facility] [address] [place] [address] Registered Nurse Cardiology 09/10/17 11/16/19 Lauren Parker Primary Ice Skater Cardiology 09/10/17 Kristal Clements RN Tunnel Elastic Operator Chainstitch 09/21/19 Kristal Clements, AVI Tunnel Elastic Operator Chainstitch 11/17/19 2 Farhat Choi MD [address] [place] [address] Referring Physician Pulmonary Disease 11/27/19 Maicol Santos MD [address] [place] [address] Supervisor Liquid Yeast Transplant 09/21/19 Sabi Simpson, AVI [address] [facility] [address] [place] [address] Registered Nurse Tunnel Elastic Operator Chainstitch 09/21/19 Tolu Wheat MD [address] [place] [address] Surgeon Cardiothoracic Surgery 08/11/24 Miscellaneous, Not In File 08/11/24 documented as of this encounter
--- OUTSIDE RECORDS SUMMARY | 2024-09-04 01:46 | XMS_ITS | Referral Summary ---
Author Organization [facility] Address [address] [place] [address] Care Team Providers Care National Expansion Recruiter Name Role Phone Lauren Parker Unavailable Unavailable Kristal Clements RN Unavailable [phone] Farhat Choi MD Unavailable [phone] Maicol Santos MD Unavailable [phone] Sabi Simpson RN Unavailable [phone] Kristina Montiel MD Primary Care Provider [phone] Tolu Wheat MD Unavailable [phone] Miscellaneous, Not In File Unavailable Unava ilable Encounters Date Type Department Care Team Description 08/24/2024 11:35 AM CDT - 08/24/2024 11:59 PM CDT Hospital Encounter [facility] [address] [place] [address] Cardiac sarcoidosis; Ventricular fibrillation (HCC) Discharge Disposition: Discharge to home or self care 08/24/2024 11:30 AM CDT Office Visit [facility] Cardiothoracic Surgery [address] [facility] Advanced Medicine 8th Floor [address] [place] [phone] Jovita Almeida NP Cardiac sarcoidosis (Primary Dx) 08/19/2024 Telephone [facility] Cardiology [address] [facility] Advanced [facility] 8th [place] [address] [place] [address] Kristina Montiel MD 08/19/2024 12:00 PM CDT Ancillary Procedure [facility] Advanced [facility] 8th [place] [address] [place] [address] VF (ventricular fibrillation) (HCC) (Primary Dx); Encounter for fitting or adjustment of automatic implantable cardioverter-defibr illator; NICM (nonischemic cardiomyopathy) (HCC) 08/18/2024 Telephone [facility] Cardiology [address] [place] [address] 8th [place] [address] [place] [address] Kristina Montiel MD 08/15/2024 Documentation [facility] Cardiothoracic Surgery [address] [place] [address] 8th Floor [address] Room [address] [place] [address] Jovita Almeida NP 08/15/2024 Telephone [facility] Cardiothoracic Surgery [address] [place] [address] 8th Floor [address] Room [address] [place] [address] Tolu Wheat MD 08/15/2024 Telephone [facility] Cardiology [address] [place] [address] 8th [place] [address] [place] [address] Kristina Montiel MD 08/11/2024 Orders Only [facility] Cardiothoracic Surgery [address] [place] [address] 8th Floor [address] Room [address] [place] [address] Jovita Almeida NP Cardiac sarcoidosis (Primary Dx); Ventricular fibrillation (HCC) 08/11/2024 Results Follow-Up [facility] Cardiology [address] [place] [address] 8th [place] [address] [place] [address] Maicol Santos MD PET/CT FDG Cardiac Sarcoid/Infection 08/10/2024 5:56 AM CDT - 08/11/2024 2:42 PM CDT Hospital Encounter [facility] [address] [place] [address] Tolu Wheat MD Cardiomyopathy, nonischemic (HCC) Discharge Disposition: Discharge to home or self care 08/10/2024 Orders Only [facility] Cardiology [address] [facility] 8th [place] [address] [place] [address] Esther Saeed NP Encounter for fitting or adjustment of automatic implantable cardioverter-defibr illator (Primary Dx) 08/10/2024 8:10 AM CDT Ancillary Procedure [facility] Operating Room [address] [place] [address] 08/10/2024 8:00 AM CDT - 08/10/2024 1:25 PM CDT Surgery [facility] Operating Room [address] [place] [address] Tolu Wheat MD EXTRACTION LEAD AUTOMATIC IMPLANTABLE CARDIOVERTER DEFIBRILLATOR 08/10/2024 7:57 AM CDT Anesthesia Event [facility] Operating Room [address] [place] [address] Tsering Greenfield MD Mehta, Divya, MD 08/09/2024 10:00 AM CDT Pre-Admission Testing [facility] for Preoperative Assessment and Planning [place] [facility] ([facility]) [address] [place] [address] Preoperative testing (Primary Dx); Bruises easily 08/03/2024 6:38 AM CDT - 08/03/2024 11:59 PM CDT Hospital Encounter [facility] [place] [facility] ([facility]) [address] [place] [address] Discharge Disposition: Discharge to home or self care 08/03/2024 6:37 AM CDT - 08/03/2024 11:59 PM CDT Hospital Encounter [facility] ([facility]) [address] [place] [address] Cardiac sarcoidosis Discharge Disposition: Discharge to home or self care 08/03/2024 6:37 AM CDT - 08/03/2024 11:59 PM CDT Hospital Encounter [facility] [place] [facility] ([facility]) [address] [place] [address] Discharge Disposition: Discharge to home or self care 08/03/2024 6:37 AM CDT - 08/03/2024 11:59 PM CDT Hospital Encounter [facility]) [address] [place] [address] Cardiac sarcoidosis Discharge Disposition: Discharge to home or self care 08/02/2024 Telephone [facility] Trans[facility] Heart [address] [facility] [address] Mailstop [id number] [place] [address] PeggymadelineChiquis 08/01/[address] [facility] Transplant Heart [address] [place] [address] Mailstop 90-17-90 [place] [address] Deny Seo 07/05/2024 Telephone [facility] Cardiothoracic Surgery [address] [place] [address] 8th Floor [address] Room [address] [place] [phone] Tolu Wheat MD 07/01/2024 Orders Only [facility] Cardiology [facility] Medical Office Building [address] [place] [address] Kristina Montiel MD 06/29/2024 11:30 AM CDT Office Visit [facility] Cardiology [address] [place] [address] 8th [place] [address] [place] [address] Maicol Santos MD Cardiac sarcoidosis (Primary Dx) 06/17/2024 Telephone [facility] Cardiology [address] [place] [address] 8th [place] [address] [place] [address] Kristina Montiel MD from Last 3 Months [...] nightly 2024 Discontinued(S top Taking at Discharge) [id number]- DPA-FISH OIL-D3 ORAL Take by mouth nightly [...] on file 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 Gender Identity Male 10/16/2020 8:46 AM CDT [...] on file Medical Devices Implanted Type Area Annealing Furnace Operator Device Identifier Shelf Expiration Date Model / Serial / Lot Icd ICD N/A: Heart [employer] Tyrx Absorbable Antibacterial Envelope Large 3.3x2.9in [id number] - [id number] Implanted:Qty: 1 on 08/10/2024 by Kristina Montiel MD at [facility] N/A: Heart [employer] 05/01/2025 [id number] / / [id number] [employer] V[employer] Defib Cardiac [id number] 63c81wo [place] Implantable 2 Chamber [id number] - [id number] - [id number] Implanted:Qty: 1 on 08/10/2024 by Tolu Wheat MD at [facility] N/A: Chest [employer] [id number] / [id number] / [employer] V[employer] Active Fixation Steroid Eluting Latex Free Sterile Right Atrium Ventricle Ultipace 52cm [id number] - [id number] Implanted:Qty: 1 on 08/10/2024 by Tolu Wheat MD at [facility] [employer] [id number] / / [...] ED Urgent/IP Urgent 08/10/2024 11:31 AM CDT VA AN PROCEDURE PLACEHOLDER Routine 08/10/2024 11:07 AM CDT ICD LEAD DUAL 2 LEADS PPM OR ICD Routine 08/10/2024 10:44 AM CDT Cardiomyopathy, nonischemic (HCC) FL FLUOROSCOPY < 1 HOUR IP Routine 08/10/2024 10:18 AM CDT POCT HEPARIN DOSE RESPONSE, CPB Routine 08/10/2024 9:28 AM CDT VA AN PROCEDURE PLACEHOLDER Routine 08/10/2024 8:50 AM CDT VA AN PROCEDURE PLACEHOLDER Routine 08/10/2024 8:50 AM CDT VA AN PROCEDURE PLACEHOLDER Routine 08/10/2024 8:50 AM CDT VA AN PROCEDURE PLACEHOLDER Routine 08/10/2024 8:49 AM CDT VA AN ELECTIVE ENDOTRACHEAL AIRWAY Routine 08/10/2024 8:49 [...] signed by: Donaldo Palomares M.D. Jovita Almeida OBJECT ORIENTED DEVELOPER IMG XR PROCEDURES Final Re sult * [...] or pneumothorax. Stable cardiomediastinal silhouette. Dictated by: uJlieta Tomlinson MD The radiology attending physician has [...] 08/10/2024 10:21 PM CDT us Phuong Hope OBJECT ORIENTED DEVELOPER LAB BLOOD ORDERABLES Final Result Performing Organization Address City/[facility] de Phone Number [facility] [place] [address] * (ABNORMAL) CBC without differential (08/10/2024 9:43 PM CDT) Pathologist [facility] WBC 11.77(H) 3.80 - 9.90 K/cumm Hgb 13.5 13.0 - 17.5 g/dL [facility] Hct 39.5 38.9 - 50.3 % [facility] Plt 203 150 - 400 K/cumm [facility] MPV 10.9 9.1 - 12.3 fL [facility] RBC 4.67 4.30 - 5.80 M/cumm [facility] MCV 84.6 81.3 - 96.4 fL [facility] MCH 28.9 27.1 - 33.3 pg [facility] MCHC 34.2 32.3 - 35.7 g/dL [facility] RDW CV 13.0 11.1 - 14.9 % [facility] RDW SD 40.0 35.7 - 48.1 fL [facility] NRBC abs 0.00 0.00 - 0.01 K/cumm [facility] Blood 08/10/2024 9:43 PM CDT 08/10/2024 10:21 PM CDT us Phuong Hope OBJECT ORIENTED DEVELOPER LAB BLOOD ORDERABLES Final Result Performing Organization Address [facility] de Phone Number [facility] Department [place] [address] * Magnesium (08/10/2024 9:43 PM CDT) Pathologist [facility] Magnesium 2.1 1.4 - 2.5 mg/dL Blood 08/10/2024 9:43 PM CDT 08/10/2024 10:21 PM CDT us Phuong Hope OBJECT ORIENTED DEVELOPER LAB BLOOD ORDERABLES Final Result Performing Organization Address [facility]/State/ZIP Co de Phone Number [facility] [place] [address] * Basic metabolic panel (08/10/2024 9:43 PM CDT) Sodium 137 135 - 145 mmol/L Potassium, pl 4.1 3.3 - 4.9 mmol/L [facility] Chloride 104 97 - 110 mmol/L [facility] CO2 24 22 - 32 mmol/L [facility] Anion gap 9 2 - 15 mmol/L [facility] BUN 20 6 - 25 mg/dL [facility] Creatinine 1.22 0.80 - 1.30 mg/dL [facility] Glucose 140 70 - 199 mg/dL [facility] Comment: Interpretive Data Fasting glucose >/= 126 [...] 2022. Calcium 8.6 8.5 - 10.3 mg/dL [facility] Blood 08/10/2024 9:43 PM CDT 08/10/2024 10:21 PM CDT Phuong Hope OBJECT ORIENTED DEVELOPER LAB BLOOD ORDERABLES Final Result [facility]AN [facility] Department [place] [address] * eGFR (08/10/2024 12:21 PM CDT) Pathologist [facility] eGFR >90 >=60 mL/min/1. 73 m2 Comment: [...] MD LAB BLOOD ORDERABLES Final Res ult [facility] One [facility] [place] [address] * Basic metabolic panel (08/10/2024 12:21 PM CDT) Sodium 141 135 - 145 mmol/L Potassium, pl 4.5 3.3 - 4.9 mmol/L [facility] Chloride 110 97 - 110 mmol/L [facility] CO2 25 22 - 32 mmol/L [facility] Anion gap 6 2 - 15 mmol/L [facility] BUN 24 6 - 25 mg/dL [facility] Creatinine 0.95 0.80 - 1.30 mg/dL [facility] Glucose 112 70 - 199 mg/dL [facility] Comment: Interpretive Data Fasting glucose >/= 126 [...] 2022. Calcium 8.6 8.5 - 10.3 mg/dL [facility] Blood 08/10/2024 12:2 1 PM CDT 08/10/2024 12:25 PM CDT us Kristina Montiel MD LAB BLOOD ORDERABLES Final Res ult [facility] Department [place] [address] * X-ray chest 1 view (08/10/2024 11:31 [...] MD IMG XR PROCEDURES Final Result * VA AN PROCEDURE PLACEHOLDER (08/10/2024 11:07 AM CDT) [...] code: KYMBERLY placement and diagnostic exam, non-congenital (94372) ICD code(s) for medical necessity: I97.190 - [...] inferior: akinetic 16- Apical septal: hypokinetic 17- [place]: hypokinetic Valves: Aortic Valve: Annulus: normal Leaflet [...] Replacement and New RA lead placement Room: [place] [address] Patient Name:Zelalem Alan Patient date of :1970 Date of Procedure:08/10/2024 OPERATORS: 1. Kristina Montiel MD [facility] PROCEDURES: RA lead placement ICD generator removal [...] the RA pacing lead Model [id number] implant date 17-42-75nxan using the tightrail sheath, a long 6F 25 cm sheath was placed into the heart under fluoroscopic guidance over a Adaptly 0.035 wire. I then scrubbed into the case. The new RA lead Osmin [id number] UBD 05-31-2027 was advanced through the sheath, [...] hemostasis by CTS staff. The ICD generator [employer] 2357-40Q SN [id number] (implant date 12-23-2013) was disconnected from the RV ICD lead. The leads were then attached to the new ICD generator Osmin Leija DR [id number] UBD 05-30-2026. The pocket was irrigated with sterile saline and vancomycin solution and then the generator was inserted into the pocket. Patel Braswell Lot # [id number] UBD 3-2-2028 was hydrated in saline, trimmed [...] CTS staff. IMPLANT INFORMATION Generator: Osmin [id number] [facility] 05-30-2026 RA lead: Solorio [id number] [facility] 05-31-2027 RV ICD lead: Solorio Durata Model [id number] SN [id number] Implant date 12-13-2013 All leads through the [...] generator change with a Osmin [id number] PALOMARES [id number] [facility] 05-30-2026 Successful RA lead placement RA lead: Solorio [id number] [facility] 05-31-2027 Successful RA pacing lead extraction RECOMMENDATIONS: IV Vancomycin for 24 hours Chest x-ray ordered Sling Bedrest overnight--OK to elevate HOB Monitor overnight No heparin or bivalarudin of any form Attestation I was present for the entire procedure and prepared this report. Kristina Montiel MD [facility] us Kristina Montiel MD CV ELECTROPHYSIOLOGY PROCS Fin al Result * FL Fluoroscopy < 1 Hour (08/10/2024 10:18 AM CDT) Narrative [facility] - 08/10/2024 10:18 AM CDT The images from this study are not interpreted by Radiology. Please refer to the physician's procedure / OR operative note. Kristina Montiel MD IMG FLUOROSCOPY PROCEDURES Fin al Result Performing Organization Address [facility] Co de Phone Number [facility] * POCT heparin dose response, CPB (08/10/2024 9:28 AM CDT) Baseline ACT POC 125 112 - 174 sec Heparin dose response slope POC 68 60 - 195 [facility] Projected Heparin Concentration POC 5.2 units/mL [facility] Blood 08/10/2024 9:28 AM CDT 08/10/2024 9:28 AM CDT Tolu Wheat MD LAB POCT ORDERABLES - DEVICE Final Result Performing Organization Address [facility] de Phone Number [facility] Department [place] [address] * VA AN PROCEDURE PLACEHOLDER (08/10/2024 8:50 AM CDT) Narrative Adi Patel CRNA - 08/10/2024 8:50 AM CDT Adi Patel CRNA 08/10/2024 8:51 AM Arterial Line Patient location: OR Indication: continuous blood pressure monitoring Ultrasound assisted: yes Staff: Placed by: Other staff: Robbie Epstein, senior java j2ee developer prep: Prep solution: chlorhexadine/alcohol Prep: provider hat/mask, [...] MD ANESTHESIA ORDERABLES Fi nal Result * VA AN PROCEDURE PLACEHOLDER (08/10/2024 8:50 AM CDT) Adi Banda CRNA - 08/10/2024 8:50 AM CDT Adi Patel CRNA 08/10/2024 8:50 AM Peripheral IV Catheter Staff: Placed by: WATER FILTER CLEANER: Adi Patel CRNA PIV line: Laterality: right Site: foot Catheter size: 16 g Technique: anatomical landmarks Procedure details: good blood return Number of attempts: 1 Tsering Greenfield MD ANESTHESIA ORDERABLES Fi nal Result * VA AN PROCEDURE PLACEHOLDER (08/10/2024 8:50 AM CDT) Adi Banda CRNA - 08/10/2024 8:50 AM CDT Adi Patel CRNA 08/10/2024 8:50 AM Peripheral IV Catheter Staff: Placed by: WATER FILTER CLEANER: Adi Patel CRNA Preprocedure prep: Prep solution: chlorhexadine PPE: gloves PIV line: Laterality: left Site: wrist Catheter size: 16 g Technique: anatomical landmarks Procedure details: good blood return Number of attempts: 1 Tsering Greenfield MD ANESTHESIA ORDERABLES Fi nal Result * VA AN ELECTIVE ENDOTRACHEAL AIRWAY, VA AN PROCEDURE PLACEHOLDER (08/10/2024 8:49 AM CDT) [...] For OR (08/10/2024 8:07 AM CDT) Narrative [facility] PROSOLV_CARDIOREPORT_CONS SCIMAGE - 08/10/2024 8:07 AM CDT Procedure Auto Finalized by Rule: BW CV KYMBERLY DURING CASE OR Please see the Anesthesiologist's Procedure Note for the results. us Tsering Greenfield MD CV ECHO PROCEDURES Final Result Performing Organization Address [facility]/ZIP Co de Phone Number [facility] PROSOLV_CARDIOREPORT_CONS SCIMAGE * Check Sample (08/10/2024 6:30 AM CDT) ABO Rh O Positive [facility] HCLL OTHER 08/10/2024 6:30 AM CDT 08/10/2024 7:40 AM CDT us Tolu Wheat MD LAB BLOOD ORDERABLES Final Re sult Performing Organization Address City/[facility]/ZIP Co de Phone Number [facility] Department [place] [address] [facility] * Prepare RBC: 2 Units (08/10/2024 6:09 AM CDT) Product code [id number] [facility] Unit Number [id number] 6-N [facility] Product Blood Type OPOS [facility] Dispense Status RETURNED [facility] Product code [id number] Unit Number [id number] 9-C [facility] Product Blood Type OPOS [facility] Dispense Status RETURNED [facility] Blood 08/10/2024 6:09 AM CDT 08/10/2024 6:08 AM CDT Narrative [facility] - 08/10/2024 10:55 AM CDT Specify Procedure:->lead removal Are special requirements needed? (All products are leukoreduced and CMV- safe)- >No Date required:-20240810 LRRBC # of [id number] Reasons:-Hold for procedure (specify procedure)} Kieran Hill MD BLOOD BANK PRODUCT ORDER JOSE L Final Result Performing Organization Address City/[facility] Co de Phone Number [facility] Department [place] [address] * eGFR (08/09/2024 11:55 AM CDT) eGFR [...] LAB BLOOD ORDERABLES Fin al Result BRIAN [facility] [place] [address] * (ABNORMAL) Differential, auto (08/09/2024 11:55 AM CDT) Neutrophil abs 4.21 1.50 - 6.50 K/cumm Imm gran abs 0.14(H) 0.00 - 0.10 K/cumm [facility] Lymphocyte abs 2.55 0.80 - 3.30 K/cumm [facility] Monocyte abs 0.71 0.20 - 0.80 K/cumm [facility] Eosinophil abs 0.36 0.00 - 0.50 K/cumm [facility] Basophil abs 0.10 0.00 - 0.10 K/cumm [facility] Neutrophil pct 52.2 % [facility] Comment: Interpretive Data Percent cell count reference ranges are not reported, since discordance with absolute values may lead to misinterpretation of CBC data. Current Interpretive Data was last revised on 2017. Imm gran pct 1.7 % [facility] Comment: Interpretive Data Percent cell count reference ranges are not reported, since discordance with absolute values may lead to misinterpretation of CBC data. Current Interpretive Data was last revised on 2017. Lymphocyte pct 31.6 % [facility] Comment: Interpretive Data Percent cell count reference ranges are not reported, since discordance with absolute values may lead to misinterpretation of CBC data. Current Interpretive Data was last revised on 2017. Monocyte pct 8.8 % [facility] Comment: Interpretive Data Percent cell count reference ranges are not reported, since discordance with absolute values may lead to misinterpretation of CBC data. Current Interpretive Data was last revised on 2017. Eosinophil pct 4.5 % [facility] Comment: Interpretive Data Percent cell count reference ranges are not reported, since discordance with absolute values may lead to misinterpretation of CBC data. Current Interpretive Data was last revised on 2017. Basophil pct 1.2 % [facility] Comment: Interpretive Data Percent cell count reference ranges are not reported, since discordance with absolute values may lead to misinterpretation of CBC data. Current Interpretive Data was last revised on 2017. Blood 08/09/2024 11:5 5 AM CDT 08/09/2024 12:30 PM CDT Kieran Hill MD LAB BLOOD ORDERABLES Fin al Result Performing Organization Address [facility] de Phone Number [facility] [employer] [place] [address] * CPAP aPTT algorithm (08/09/2024 11:55 AM CDT) Pathologist [facility] aPTT 33 28 - 38 sec Comment: Interpretive Data Heparin therapeutic range: 66.0 - 100.0 seconds. Range based on correlation with therapeutic heparin activity range of 0.3 - 0.7 Units/mL. Current interpretive data was last revised on 2022. Blood 08/09/2024 11:5 5 AM CDT 08/09/2024 12:26 PM CDT Kieran Hill MD LAB BLOOD ORDERABLES Fin al Result Performing Organization Address [facility] [place] [address] * CBC with auto differential (08/09/2024 11:55 AM CDT) [facility] WBC 8.07 3.80 - 9.90 K/cumm Hgb 15.1 13.0 - 17.5 g/dL [facility] Hct 44.6 38.9 - 50.3 % [facility] Plt 194 150 - 400 K/cumm [facility] MPV 11.0 9.1 - 12.3 fL [facility] RBC 5.24 4.30 - 5.80 M/cumm [facility] MCV 85.1 81.3 - 96.4 fL [facility] MCH 28.8 27.1 - 33.3 pg [facility] MCHC 33.9 32.3 - 35.7 g/dL [facility] RDW CV 13.0 11.1 - 14.9 % [facility] RDW SD 39.7 35.7 - 48.1 fL [facility] NRBC abs 0.00 0.00 - 0.01 K/cumm [facility] Blood 08/09/2024 11:5 5 AM CDT 08/09/2024 12:30 PM CDT Kieran Hill MD LAB BLOOD ORDERABLES Fin al Result Performing Organization Address [facility] de Phone Number [facility] [employer] [place] [address] * Protime-INR (08/09/2024 11:55 AM CDT) PT 10.0 9.7 - 13.0 sec INR 0.93 0.90 - 1.20 [facility] Comment: Interpretive data Oral anticoagulant therapeutic ranges: Venous thromboembolism prophylaxis or treatment: 2.0-3.0 CARDIOLOGY Standard range: 2.0-3.0 High-intensity range: 2.5-3.5 Refer to indication-specific guidelines for appropriate target ranges for prosthetic heart valve replacement. Current interpretive data was last revised on 2019. Blood 08/09/2024 11:5 5 AM CDT 08/09/2024 12:26 PM CDT Kieran Hill MD LAB BLOOD ORDERABLES Fin al Result Performing Organization Address [facility] de Phone Number [facility] [employer] [place] [address] * Type and screen (08/09/2024 11:55 AM CDT) ABO Rh O Positive [place], indirect Negative [facility] Blood 08/09/2024 11:5 5 AM CDT 08/09/2024 12:59 PM CDT Narrative [facility] [facility] - 08/09/2024 2:03 PM CDT Has the patient had Daratumumab or Isatuximab in the past 6 months?->Unknown Kieran Hill MD LAB BLOOD BANK TEST ORDPhan LEVY Final Result [facility] [place] [address] * Comprehensive metabolic panel (08/09/2024 11:55 AM CDT) Sodium 144 135 - 145 mmol/L Potassium, pl 3.9 3.3 - 4.9 mmol/L [facility] Chloride 107 97 - 110 mmol/L [facility] CO2 29 22 - 32 mmol/L [facility] Anion gap 8 2 - 15 mmol/L [facility] BUN 24 6 - 25 mg/dL [facility] Creatinine 1.06 0.80 - 1.30 mg/dL [facility] Glucose 83 70 - 199 mg/dL [facility] Comment: Interpretive Data Fasting glucose >/= 126 [...] 2022. Calcium 9.3 8.5 - 10.3 mg/dL [facility] Bilirubin, total 0.4 0.1 - 1.2 mg/dL [facility] Protein, pl 6.7 6.5 - 8.5 g/dL [facility] Albumin 4.3 3.5 - 5.0 g/dL [facility] Alk phos 69 40 - 130 Units/L [facility] ALT 35 7 - 55 Units/L [facility] AST 26 10 - 50 Units/L [facility] Blood 08/09/2024 11:5 5 AM CDT 08/09/2024 12:30 PM CDT Kieran Hill MD LAB BLOOD ORDERABLES Fin al Result [facility] [place] [address] * ECG 12 lead (08/09/2024 11:47 AM CDT) Ventricular Rate EKG/Min 71 BPM [facility] Atrial Rate 71 BPM [facility] VA-Interval (MSEC) 172 ms [facility] QRS-Interval (MSEC) 164 ms [facility] QT-Interval (MSEC) 440 ms [facility] QTc 478 ms [facility] P [place] 110 degrees [facility] R [place] 3 degrees [facility] T [place] 237 degrees [facility] Diagnosis Sinus rhythm with Premature atrial complexes Left bundle branch block Abnormal ECG No previous ECGs available Confirmed by Santana Peterson MD ([id number]) on 08/11/2024 9:52:51 AM [facility] 08/09/2024 11:4 7 AM CDT 08/11/2024 9:52 AM CDT Kieran Hill MD ECG ORDERABLES Final Re sult Performing Organization Address [facility] [address]/ZIP Co de Phone Number [facility] * PET/CT FDG Cardiac Sarcoid/Infection (08/03/2024 11:26 [...] PET/CT (METABOLISM) DATE OF STUDY: 08/03/2024 SCANNER: Minimally invasive devices N mCT RADIOPHARMACEUTICAL: 16.09 mCi F-18 Fluorodeoxyglucose [...] obtained. The study was interpreted on the [employer] workstation. Scanned area: upper thorax to the [...] PET/CT (METABOLISM) DATE OF STUDY: 08/03/2024 SCANNER: [employer] N mCT RADIOPHARMACEUTICAL: 16.09 mCi F-18 Fluorodeoxyglucose [...] obtained. The study was interpreted on the [employer] workstation. Scanned area: upper thorax to the [...] Lex Cedeño M.D. us Maicol Santos MD [facility] PROC[facility] Final Result * DEVICE CHECK - REMOTE (07/01/2024 6:00 AM CDT) Anatomical Region Laterality Modality Other 07/01/2024 6:00 AM CDT Narrative 07/07/2024 8:10 AM CDT Interpretation Summary: Battery and Leads (BL) Less than 6 months of battery longevity noted --- 3 months remaining (this is an estimate based on prior usage) Normal parameters identified on lead(s) Presenting Rhythm (VA) Atrial Sensing-Ventricular Sensing (-VS) --- rate 63 [...] Normal parameters identified on lead(s) Presenting Rhythm (VA) Atrial Sensing-Ventricular Sensing (-VS) --- rate 63 [...] PM CDT) Hep A IgM Nonreactive Nonreactive [facility] Comment: Interpretive Data If test is reported as GRAYZONE, new sample should be drawn in two weeks for testing. Current interpretive data was last revised on 2016. Hep B core IgM Nonreactive Nonreactive [facility] Comment: Interpretive Data If test is reported as GRAYZONE, new sample should be drawn for testing. Current interpretive data was last revised on 2016. Hep C Ab Nonreactive Nonreactive [facility] Comment: Interpretive Data Positive and greyzone results should be confirmed by a molecular method. If positive or greyzone, a second separately collected sample should be submitted for Hepatitis C Virus RNA. Detection and Quantitation by Real-Time Reverse Channel Development Manager-PCR.Current Interpretive data was last revised on 2016. HepBsAg Nonreactive Nonreactive [facility] Blood specimen (specimen) 11/18/2016 4:40 PM CDT 11/18/2016 4:55 PM CDT us Farhat Choi MD LAB MICROBIOLOGY - GENERAL O RDERABLES Edited Result - Final [facility] [place] [address] from Last 3 Months or Most Recently Relevant to Health Maintenance Insurance MEDICARE FOR LIFE MEDICARE FOR LIFE MEDICARE [facility] Address: [address] [address] [place] [address] FOR LIFE Care Teams National Expansion Recruiter Relationship Specialty Start Date End Date Kristina Montiel MD [address] [facility] [address] [place] [id number] PCP - General Cardiology 08/11/24 Lauren Parker Primary Mechanical Design Engineer Cardiology 09/10/17 Kristal Clements, AVI Youth Agent 09/21/19 Farhat Choi MD [address] [facility] [address] [place] [address] Referring Physician Pulmonary Disease 11/27/19 Maicol Santos MD [address] [place] [address] Processing Manager Transplant 09/21/19 Sabi Simpson, RN [address] [facility] [address] [place] [address] Registered Nurse Youth Agent 09/21/19 Tolu Wheat MD [id number] [place], [place] [id number] Surgeon Cardiothoracic Surgery 08/11/24 Miscellaneous, Not In File 08/11/24
--- OUTSIDE RECORDS SUMMARY | 2024-09-04 01:46 | XMS_ITS | Encounter Summary ---
Author Organization [facility] Address [address] [place] [address] Phone Care Team Providers Care Senior C Developer Name Role Phone Lauren Parker Unavailable Unavailable Kristal Clements RN Unavailable [phone] Farhat Choi MD Unavailable [phone] Maicol Santos MD Unavailable [phone] Sabi Simpson RN Unavailable [phone] Kristina Montiel MD Primary Care Provider [phone] Tolu Wheat MD Unavailable [phone] Miscellaneous, Not In File Unavailable Unava ilable Encounter Details Date Type Department Care Team (Late st Contact Info) Description 08/15/2024 Telephone [facility] Cardiology [address] [facility] Advanced Medicine [address]th [place] [address] [place] [address] Kristina Montiel MD [address] [facility] [address] [place], [place] [id number] Social History Tobacco Use Types Packs/Day Years [...] on file 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 [...] warmth, or drainage. Thanks! Jovita Almeida, MSN, OTHER WOOD PROCESSING MACHINE OPERATOR- Division of Cardiothoracic Surgery * Telephone Encounter [...] on filedocumented in this encounter Care Teams Senior C Developer Relationship Specialty Start Date End Date Kristina Montiel MD [address] [facility] [address] [place] [address] PCP - General Cardiology 08/11/24 Lauren Parker Primary Forensic Structural Engineer Cardiology 09/10/17 Kristal Clements, AVI Senior Construction Estimator 09/21/19 Farhat Choi MD [address] [place] [address] Referring Physician Pulmonary Disease 11/27/19 Maicol Santos MD [address] [place] [address] Quality Control Expert Transplant 09/21/19 Sabi Simpson RN [address] [facility] [address] [place] [address] Registered Nurse Senior Construction Estimator 09/21/19 Tolu Wheat MD [id number] [place] [address] Surgeon Cardiothoracic Surgery 08/11/24 Miscellaneous, Not In File 08/11/24 documented as of this encounter
--- OUTSIDE RECORDS SUMMARY | 2024-09-04 01:46 | XMS_ITS | Encounter Summary ---
Author Organization [facility] Address [address] [place] [address] Phone Care Team Providers Care Parking Technician Name Role Phone Lauren Parker Unavailable Unavailable Kristal Clements RN Unavailable [phone] Farhat Choi MD Unavailable [phone] Maicol Santos MD Unavailable [phone] Sabi Simpson RN Unavailable [phone] Kristina Montiel MD Primary Care Provider [phone] Tolu Wheat MD Unavailable [phone] Miscellaneous, Not In File Unavailable Unava ilable Encounter Details Date Type Department Care Team (Late st Contact Info) Description 08/11/2024 Results Follow-Up [facility] [address] [facility] Advanced Medicine 8th [place] [address] [place] [address] Maicol Santos MD [address] [facility] [address] [place] [address] PET/CT FDG Cardiac Sarcoid/Infection Social [...] on file 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 Gender Identity Male 10/16/2020 8:46 AM CDT Sexual Orientation Not on file documented as of this encounter Plan of Treatment Not on file documented as of this encounter Visit Diagnoses Not on filedocumented in this encounter Care Teams Parking Technician Relationship Specialty Start Date End Date Kristina Montiel MD [address] [facility] [address] [place] [address] PCP - General Cardiology 08/11/24 Lauren Parker Primary Head Of Measurement & Insights Cardiology 09/10/17 Kristal Clements RN Inventory Transcriber 09/21/19 Farhat Choi MD [address] [place] [address] Referring Physician Pulmonary Disease 11/27/19 Maicol Santos MD [address] [place] [address] Educational Adviser Transplant 09/21/19 Sabi Simpson RN [address] [facility] [address] [place] [address] Registered Nurse Inventory Transcriber 09/21/19 Tolu Wheat MD [address] [facility] [id number] [place] [address] Surgeon Cardiothoracic Surgery 08/11/24 Miscellaneous, Not In File 08/11/24 documented as of this encounter
--- OUTSIDE RECORDS SUMMARY | 2024-09-04 01:46 | XMS_ITS | Clinical Summary ---
Author Organization [facility] Address [address] [place] [address] Care Team Providers Care Director Packaging Name Role Phone Lauren Parker Unavailable Unavailable Kristal Clements RN Unavailable [phone] Farhat Choi MD Unavailable [phone] Maicol Santos MD Unavailable [phone] Sabi Simpson RN Unavailable [phone] Kristina Montiel MD Primary Care Provider [phone] Tolu Wheat MD Unavailable [phone] Miscellaneous, Not In File Unavailable Unava [...] nightly 2024 Discontinued(S top Taking at Discharge) [id number] DPA-FISH OIL-D3 ORAL Take by mouth nightly [...] - 08/24/2024 11:59 PM CDT Hospital Encounter [facility] [address] [place] [address] Cardiac sarcoidosis; Ventricular fibrillation (HCC) Discharge Disposition: Discharge to home or self care 08/24/2024 11:30 AM CDT Office Visit [facility] Cardiothoracic Surgery [address] [place] [address] Medicine 8th Floor [address] Room [address] [place] [phone] Jovita Almeida NP Cardiac sarcoidosis (Primary Dx) 08/19/2024 12:00 PM CDT Ancillary Procedure [facility] Cardiology [address] [place] [address] [place] [address] VF (ventricular fibrillation) (HCC) (Primary Dx); Encounter for fitting or adjustment of automatic implantable cardioverter-defibr illator; NICM (nonischemic cardiomyopathy) (HCC) 08/19/2024 Telephone [facility] Cardiology [address] [place] [address] Advanced Medicine 8th [place] [address] [place] [address] Kristina Montiel MD 08/18/2024 Telephone [facility] Cardiology [address] [place] [address] 8th [place] [address] [place] [address] Kristina Montiel MD 08/15/2024 Documentation [facility] Cardiothoracic Surgery [address] [place] [address] Advanced [facility] 8th Floor [address] Room [address] [place] [phone] Jovita Almeida NP 08/15/2024 Telephone [facility] Cardiothoracic Surgery [address] [place] [address] Floor [address] Room [address] [place] [phone] Tolu Wheat MD 08/15/2024 Telephone [facility] Cardiology [address] [place] [address] 8th [place] [address] [place] [address] Kristina Montiel MD 08/11/2024 Orders Only [facility] Cardiothoracic Surgery [address] [facility] 8th Floor [address] Room [address] [place] [phone] Jovita Almeida NP Cardiac sarcoidosis (Primary Dx); Ventricular fibrillation (HCC) 08/11/2024 Results Follow-Up [facility] Cardiology [address] [place] [address] 8th [place] [address] [place] [address] Maicol Santos MD PET/CT FDG Cardiac Sarcoid/Infection 08/10/2024 8:10 AM CDT Ancillary Procedure [facility] Operating Room [address] [place] [address] 08/10/2024 8:00 AM CDT - 08/10/2024 1:25 PM CDT Surgery [facility] Operating Room [address] [place] [address] Tolu Wheat MD EXTRACTION LEAD AUTOMATIC IMPLANTABLE CARDIOVERTER DEFIBRILLATOR 08/10/2024 7:57 AM CDT Anesthesia Event [facility] Operating Room [address] [place] [address] Tsering Greenfield MD Mehta, Divya, MD 08/10/2024 5:56 AM CDT - 08/11/2024 2:42 PM CDT Hospital Encounter [address] [address] Tolu Wheat MD Cardiomyopathy, nonischemic (HCC) Discharge Disposition: Discharge to home or self care 08/10/2024 Orders Only [facility] Cardiology [address] [place] [address] 8th [place] [address] [place] [address] Esther Saeed NP Encounter for fitting or adjustment of automatic implantable cardioverter-defibr illator (Primary Dx) 08/09/2024 10:00 AM CDT Pre-Admission Testing [facility] [address] [place] [address] Preoperative testing (Primary Dx); Bruises easily 08/03/2024 6:38 AM CDT - 08/03/2024 11:59 PM CDT Hospital Encounter [facility] Radiology [facility] [address] [place] [address] Discharge Disposition: Discharge to home or self care 08/03/2024 6:37 AM CDT - 08/03/2024 11:59 PM CDT Hospital Encounter [facility] Radiology [place] [facility] ([facility]) [address] [place] [address] Cardiac sarcoidosis Discharge Disposition: Discharge to home or self care 08/03/2024 6:37 AM CDT - 08/03/2024 11:59 PM CDT Hospital Encounter [facility] Rad[facility] [place] [facility] ([facility]) [address] [place] [address] Discharge Disposition: Discharge to home or self care 08/03/2024 6:37 AM CDT - 08/03/2024 11:59 PM CDT Hospital Encounter [facility] Radiology [place] [facility] ([facility]) [address] [place] [address] Cardiac sarcoidosis Discharge Disposition: Discharge to home or self care 08/02/2024 Telephone [facility] Transplant Heart [address] [facility] [address] Mailstop [phone] [place] [address] Chiquis Ignacio 08/01/2024 Telephone [facility] Transplant Heart [address] [facility] Mailstop [phone] [place] [address] Deny Seo 07/05/2024 Telephone [facility] Cardiothoracic Surgery [address] [facility] Advanced Medicine 8th Floor [address] Room [address] [place] [address] Tolu Wheat MD 07/01/2024 Orders Only [facility] Cardiology [address] [facility] Medical Office Building [address] [place] [phone] Kristina Montiel MD 06/29/2024 11:30 AM CDT Office Visit [facility] Cardiology [address] [facility] 8th [place] [address] [place] [phone] Maicol Santos MD Cardiac sarcoidosis (Primary Dx) 06/17/2024 Telephone [facility] Cardiology [address] [facility] 8th [place] [address] [place] [phone] Kristina Montiel MD from Last 3 Months Surgical History Surgery Date Site/Laterality Comments SC REPAIR PRIMARY TORN LIGM&/CAPSULE KNEE CRUCIAT Primary Repair Of Knee Ligament Cruciate Anterior - (Added by ) CARDIAC ELECTROPHYSIOLOGY PROCEDURE 08/10/2024 Chest/N/A Procedure: INSERT/REPLACE DUAL LEAD PACEMAKER (PPM) OR IMPLANTABLE CARDIOVERTER-DEFIBRILLATOR (ICD) ELECTRODE WO GENERATOR CHANGE [id number]; Surgeon: Kristina Montiel MD; Location: 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 Gender Identity Male 10/16/2020 8:46 AM CDT [...] 11/18/2016, 016 Medical Devices Implanted Type Area Cabin Man Device Identifier Shelf Expiration Date Model / Serial / Lot Icd ICD N/A: Heart [employer] Tyrx Absorbable Antibacterial Envelope Large 3.3x2.9in [id number] - [id number] Implanted:Qty: 1 on 08/10/2024 by Kristina Montiel MD at [facility] N/A: Heart [employer] 05/01/2025 [id number] / / [id number] Sol[employer] V[employer] Defib Cardiac Nty11vy 44k77ow [place] Implantable 2 Chamber [id number] - [id number] - [id number] Implanted:Qty: 1 on 08/10/2024 by Tolu Wheat MD at [facility] N/A: Chest Sol[employer] Vascular [id number] / [id number] / Sol[employer] V[employer] Active Fixation Steroid Eluting Latex Free Sterile Right Atrium Ventricle Ultipace 52cm [id number] - [id number] Implanted:Qty: 1 on 08/10/2024 by Tolu Wheat MD at [facility] [employer] [id number] 231/52 / / Procedures [...] ED Urgent/IP Urgent 08/10/2024 11:31 AM CDT SC AN PROCEDURE PLACEHOLDER Routine 08/10/2024 11:07 AM CDT ICD LEAD DUAL 2 LEADS PPM OR ICD Routine 08/10/2024 10:44 AM CDT Cardiomyopathy, nonischemic (HCC) FL FLUOROSCOPY < 1 HOUR IP Routine 08/10/2024 10:18 AM CDT POCT HEPARIN DOSE RESPONSE, CPB Routine 08/10/2024 9:28 AM CDT SC AN PROCEDURE PLACEHOLDER Routine 08/10/2024 8:50 AM CDT SC AN PROCEDURE PLACEHOLDER Routine 08/10/2024 8:50 AM CDT SC AN PROCEDURE PLACEHOLDER Routine 08/10/2024 8:50 AM CDT SC AN PROCEDURE PLACEHOLDER Routine 08/10/2024 8:49 AM CDT SC AN ELECTIVE ENDOTRACHEAL AIRWAY Routine 08/10/2024 8:49 [...] signed by: Donaldo Palomares M.D. Jovita Almeida GROUND CREW LINES PERSON IMG XR PROCEDURES Final Re sult * [...] 08/10/2024 10:21 PM CDT us Phuong Hope GROUND CREW LINES PERSON LAB BLOOD ORDERABLES Final Result Performing Organization Address [facility] Co de Phone Number [facility] [place] [address] * (ABNORMAL) CBC without differential (08/10/2024 9:43 PM CDT) WBC 11.77(H) 3.80 - 9.90 K/cumm Hgb 13.5 13.0 - 17.5 g/dL [facility] Hct 39.5 38.9 - 50.3 % [facility] Plt 203 150 - 400 K/cumm [facility] MPV 10.9 9.1 - 12.3 fL [facility] RBC 4.67 4.30 - 5.80 M/cumm [facility] MCV 84.6 81.3 - 96.4 fL [facility] MCH 28.9 27.1 - 33.3 pg [facility] MCHC 34.2 32.3 - 35.7 g/dL [facility] RDW CV 13.0 11.1 - 14.9 % [facility] RDW SD 40.0 35.7 - 48.1 fL [facility] NRBC abs 0.00 0.00 - 0.01 K/cumm [facility] Blood 08/10/2024 9:43 PM CDT 08/10/2024 10:21 PM CDT Phuong Hope GROUND CREW LINES PERSON LAB BLOOD ORDERABLES Final Result [facility] Department [place] [address] * Magnesium (08/10/2024 9:43 PM CDT) Pathologist [facility] Magnesium 2.1 1.4 - 2.5 mg/dL Blood 08/10/2024 9:43 PM CDT 08/10/2024 10:21 PM CDT Phuong Hope GROUND CREW LINES PERSON LAB BLOOD ORDERABLES Final Result [facility] Department [place] [address] * Basic metabolic panel (08/10/2024 9:43 PM CDT) Pathologist [facility] Sodium 137 135 - 145 mmol/L Potassium, pl 4.1 3.3 - 4.9 mmol/L [facility] Chloride 104 97 - 110 mmol/L [facility] CO2 24 22 - 32 mmol/L [facility] Anion gap 9 2 - 15 mmol/L [facility] BUN 20 6 - 25 mg/dL [facility] Creatinine 1.22 0.80 - 1.30 mg/dL [facility] Glucose 140 70 - 199 mg/dL [facility] Comment: Interpretive Data Fasting glucose >/= 126 [...] 2022. Calcium 8.6 8.5 - 10.3 mg/dL [facility] Blood 08/10/2024 9:43 PM CDT 08/10/2024 10:21 PM CDT Phuong Hope NP LAB BLOOD ORDERABLES Final Result Performing Organization Address City/[facility]/ZIP Co de Phone Number [facility] Department [place] [address] * eGFR (08/10/2024 12:21 PM CDT) Pathologist [facility] eGFR >90 >=60 mL/min/1. 73 m2 Comment: [...] MD LAB BLOOD ORDERABLES Final Res ult [facility] [place] [address] * Basic metabolic panel (08/10/2024 12:21 PM CDT) Sodium 141 135 - 145 mmol/L Potassium, pl 4.5 3.3 - 4.9 mmol/L [facility] Chloride 110 97 - 110 mmol/L [facility] CO2 25 22 - 32 mmol/L [facility] Anion gap 6 2 - 15 mmol/L [facility] BUN 24 6 - 25 mg/dL [facility] Creatinine 0.95 0.80 - 1.30 mg/dL [facility] Glucose 112 70 - 199 mg/dL [facility] Comment: Interpretive Data Fasting glucose >/= 126 [...] Calcium 8.6 8.5 - 10.3 mg/dL [facility] Blood 08/10/2024 12:2 1 PM CDT 08/10/2024 12:25 PM CDT us Kristina Montiel MD LAB BLOOD ORDERABLES Final Res ult [facility] Department [place] [address] * X-ray chest 1 view (08/10/2024 11:31 [...] MD IMG XR PROCEDURES Final Result * SC AN PROCEDURE PLACEHOLDER (08/10/2024 11:07 AM CDT) [...] code: KYMBERLY placement and diagnostic exam, non-congenital (97931) ICD code(s) for medical necessity: I97.190 - [...] inferior: akinetic 16- Apical septal: hypokinetic 17- Burdick: hypokinetic Valves: Aortic Valve: Annulus: normal Leaflet [...] Replacement and New RA lead placement Room: [place] [address] Patient Name:Zelalem Alan Patient date of :1970 Date of Procedure:08/10/2024 OPERATORS: 1. Kristina Montiel MD [facility] PROCEDURES: RA lead placement ICD [...] RA pacing lead Model [id number] SN [id number] implant date 74-81-02brnb using the tightrail sheath, a long 6F 25 cm sheath was placed into the heart under fluoroscopic guidance over a eReceiptsson 0.035 wire. I then scrubbed into the case. The new RA lead CorpU [id number] UBD 05-31-2027 was advanced through the sheath, [...] hemostasis by CTS staff. The ICD generator Tissue Genesis 2357-40Q SN [id number] (implant date 12-23-2013) was disconnected from the RV ICD lead. The leads were then attached to the new ICD generator Osmin Leija DR [id number] SN [id number] UBD 05-30-2026. The pocket was irrigated with sterile saline and vancomycin solution and then the generator was inserted into the pocket. Patel rizwan Tyrex Lot # [id number] UBD 05-02-2027 was hydrated in saline, trimmed [...] IMPLANT INFORMATION Generator: Osmin Leija DR, [id number] [facility] 05-30-2026 RA lead: Solorio [id number] [facility] 05-31-2027 RV ICD lead: Solorio Durata Model [id number] SN [id number] Implant date 12-13-2013 All leads through the [...] change with a Osmin Leija DR, [id number] [facility] 05-30-2026 Successful RA lead placement RA lead: Solorio [id number] [facility] 05-31-2027 Successful RA pacing lead extraction RECOMMENDATIONS: IV Vancomycin for 24 hours Chest x-ray ordered Sling Bedrest overnight--OK to elevate HOB Monitor overnight No heparin or bivalarudin of any form Attestation I was present for the entire procedure and prepared this report. Kristina Montiel MD [facility] us Kristina Montiel MD CV ELECTROPHYSIOLOGY PROCS Fin al Result * FL Fluoroscopy < 1 Hour (08/10/2024 10:18 AM CDT) Narrative [facility] - 08/10/2024 10:18 AM CDT The images from this study are not interpreted by Radiology. Please refer to the physician's procedure / OR operative note. Kristina Montiel MD IMG FLUOROSCOPY PROCEDURES Fin al Result Performing Organization Address [facility] Co de Phone Number RAD_[email or web address] * POCT heparin dose response, CPB (08/10/2024 9:28 AM CDT) Baseline ACT POC 125 112 - 174 sec Heparin dose response slope POC 68 60 - 195 [facility] Projected Heparin Concentration POC 5.2 units/mL [facility] Blood 08/10/2024 9:28 AM CDT 08/10/2024 9:28 AM CDT Tolu Wheat MD LAB POCT ORDERABLES - DEVICE Final Result Performing Organization Address [facility] de Phone Number [facility] Department [place] [address] * SC AN PROCEDURE PLACEHOLDER (08/10/2024 8:50 AM CDT) Narrative Adi Patel CRNA - 08/10/2024 8:50 AM CDT Adi Patel CRNA 08/10/2024 8:51 AM Arterial Line Patient location: OR Indication: continuous blood pressure monitoring Ultrasound assisted: yes Staff: Placed by: Other staff: Robbie Epstein, environmental health inspector prep: Prep solution: chlorhexadine/alcohol Prep: provider hat/mask, [...] MD ANESTHESIA ORDERABLES Fi nal Result * SC AN PROCEDURE PLACEHOLDER (08/10/2024 8:50 AM CDT) Adi Banda CRNA - 08/10/2024 8:50 AM CDT Adi Patel CRNA 08/10/2024 8:50 AM Peripheral IV Catheter Staff: Placed by: PASSENGER RELATIONS REPRESENTATIVE: Adi Patel CRNA PIV line: Laterality: right Site: foot Catheter size: 16 g Technique: anatomical landmarks Procedure details: good blood return Number of attempts: 1 Tsering Greenfield MD ANESTHESIA ORDERABLES Fi nal Result * SC AN PROCEDURE PLACEHOLDER (08/10/2024 8:50 AM CDT) Adi Banda CRNA - 08/10/2024 8:50 AM CDT Adi Patel CRNA 08/10/2024 8:50 AM Peripheral IV Catheter Staff: Placed by: PASSENGER RELATIONS REPRESENTATIVE: Adi Patel CRNA Preprocedure prep: Prep solution: chlorhexadine PPE: gloves PIV line: Laterality: left Site: wrist Catheter size: 16 g Technique: anatomical landmarks Procedure details: good blood return Number of attempts: 1 Result [facility] Tsering Greenfield MD ANESTHESIA ORDERABLES Fi nal Result * SC AN ELECTIVE ENDOTRACHEAL AIRWAY, SC AN PROCEDURE PLACEHOLDER (08/10/2024 8:49 AM CDT) [...] For OR (08/10/2024 8:07 AM CDT) Narrative [facility] PROSOLV_CARDIOREPORT_CONS SCIMAGE - 08/10/2024 8:07 AM CDT Procedure Auto Finalized by Rule: BW CV KYMBERLY DURING CASE OR Please see the Anesthesiologist's Procedure Note for the results. Tsering Greenfield MD CV ECHO PROCEDURES Final Result Performing Organization Address City/[facility]/ZIP Co de Phone Number [facility] PROSOLV_CARDIOREPORT_CONS SCIMAGE * Check Sample (08/10/2024 6:30 AM CDT) ABO Rh O Positive [facility] HCLL OTHER 08/10/2024 6:30 AM CDT 08/10/2024 7:40 AM CDT Tolu Wheat MD LAB BLOOD ORDERABLES Final Re sult [facility] Department [place] [address] [facility] * Prepare RBC: 2 Units (08/10/2024 6:09 AM CDT) Product code [id number] [facility] Unit Number [id number] 6-N [facility] Product Blood Type OPOS [facility] Dispense Status RETURNED [facility] Product code [id number] Unit Number [id number] 9-C [facility] Product Blood Type OPOS [facility] Dispense Status RETURNED [facility] Blood 08/10/2024 6:09 AM CDT 08/10/2024 6:08 AM CDT Narrative [facility] - 08/10/2024 10:55 AM CDT Specify Procedure:->lead removal Are special requirements needed? (All products are leukoreduced and CMV- safe)- >No Date required:-20240810 LRRBC # of [id number] Reasons:-Hold for procedure (specify procedure)} Kieran Hill MD BLOOD BANK PRODUCT ORDER JOSE L Final Result [facility] [place] [address] * eGFR (08/09/2024 11:55 AM CDT) eGFR [...] MD LAB BLOOD ORDERABLES Fin al Result [facility] [place] [address] * (ABNORMAL) Differential, auto (08/09/2024 11:55 AM CDT) Neutrophil abs 4.21 1.50 - 6.50 K/cumm Imm gran abs 0.14(H) 0.00 - 0.10 K/cumm [facility] Lymphocyte abs 2.55 0.80 - 3.30 K/cumm [facility] Monocyte abs 0.71 0.20 - 0.80 K/cumm [facility] Eosinophil abs 0.36 0.00 - 0.50 K/cumm [facility] Basophil abs 0.10 0.00 - 0.10 K[facility]cumm [facility] Neutrophil pct 52.2 % [facility] Comment: Interpretive Data Percent cell count reference ranges are not reported, since discordance with absolute values may lead to misinterpretation of CBC data. Current Interpretive Data was last revised on 2017. Imm gran pct 1.7 % [facility] Comment: Interpretive Data Percent cell count reference ranges are not reported, since discordance with absolute values may lead to misinterpretation of CBC data. Current Interpretive Data was last revised on 2017. Lymphocyte pct 31.6 % [facility] Comment: Interpretive Data Percent cell count reference ranges are not reported, since discordance with absolute values may lead to misinterpretation of CBC data. Current Interpretive Data was last revised on 2017. Monocyte pct 8.8 % [facility] Comment: Interpretive Data Percent cell count reference ranges are not reported, since discordance with absolute values may lead to misinterpretation of CBC data. Current Interpretive Data was last revised on 2017. Eosinophil pct 4.5 % [facility] Comment: Interpretive Data Percent cell count reference ranges are not reported, since discordance with absolute values may lead to misinterpretation of CBC data. Current Interpretive Data was last revised on 2017. Basophil pct 1.2 % [facility] Comment: Interpretive Data Percent cell count reference ranges are not reported, since discordance with absolute values may lead to misinterpretation of CBC data. Current Interpretive Data was last revised on 2017. Blood 08/09/2024 11:5 5 AM CDT 08/09/2024 12:30 PM CDT Kieran Hill MD LAB BLOOD ORDERABLES Fin al Result Performing Organization Address [facility] [place] [address] * CPAP aPTT algorithm (08/09/2024 11:55 AM CDT) Pathologist [facility] aPTT 33 28 - 38 sec Comment: Interpretive Data Heparin therapeutic range: 66.0 - 100.0 seconds. Range based on correlation with therapeutic heparin activity range of 0.3 - 0.7 Units/mL. Current interpretive data was last revised on 2022. Blood 08/09/2024 11:5 5 AM CDT 08/09/2024 12:26 PM CDT Kieran Hill MD LAB BLOOD ORDERABLES Fin al Result Performing Organization Address [facility] [place] [address] * CBC with auto differential (08/09/2024 11:55 AM CDT) [facility] WBC 8.07 3.80 - 9.90 K/cumm Hgb 15.1 13.0 - 17.5 g/dL [facility] Hct 44.6 38.9 - 50.3 % [facility] Plt 194 150 - 400 K/cumm [facility] MPV 11.0 9.1 - 12.3 fL [facility] RBC 5.24 4.30 - 5.80 M/cumm [facility] MCV 85.1 81.3 - 96.4 fL [facility] MCH 28.8 27.1 - 33.3 pg [facility] MCHC 33.9 32.3 - 35.7 g/dL [facility] RDW CV 13.0 11.1 - 14.9 % [facility] RDW SD 39.7 35.7 - 48.1 fL [facility] NRBC abs 0.00 0.00 - 0.01 K/cumm [facility] Blood 08/09/2024 11:5 5 AM CDT 08/09/2024 12:30 PM CDT Kieran Hill MD LAB BLOOD ORDERABLES Fin al Result Performing Organization Address [facility] de Phone Number [facility] [place] [address] * Protime-INR (08/09/2024 11:55 AM CDT) PT 10.0 9.7 - 13.0 sec INR 0.93 0.90 - 1.20 [facility] Comment: Interpretive data Oral anticoagulant therapeutic ranges: Venous thromboembolism prophylaxis or treatment: 2.0-3.0 CARDIOLOGY Standard range: 2.0-3.0 High-intensity range: 2.5-3.5 Refer to indication-specific guidelines for appropriate target ranges for prosthetic heart valve replacement. Current interpretive data was last revised on 2019. Blood 08/09/2024 11:5 5 AM CDT 08/09/2024 12:26 PM CDT Kieran Hill MD LAB BLOOD ORDERABLES Fin al Result Performing Organization Address [facility] de Phone Number [facility] [place] [address] * Type and screen (08/09/2024 11:55 AM CDT) ABO Rh O Positive Btehel, indirect Negative [facility] Blood 08/09/2024 11:5 5 AM CDT 08/09/2024 12:59 PM CDT Narrative [facility] - 08/09/2024 2:03 PM CDT Has the patient had Daratumumab or Isatuximab in the past 6 months?->Unknown us Kieran Hill MD LAB BLOOD BANK TEST NILESH LEVY Final Result [facility] [place] [address] * Comprehensive metabolic panel (08/09/2024 11:55 AM CDT) [facility] Sodium 144 135 - 145 mmol/L Potassium, pl 3.9 3.3 - 4.9 mmol/L [facility] Chloride 107 97 - 110 mmol/L [facility] CO2 29 22 - 32 mmol/L [facility] Anion gap 8 2 - 15 mmol/L [facility] BUN 24 6 - 25 mg/dL [facility] Creatinine 1.06 0.80 - 1.30 mg/dL [facility] Glucose 83 70 - 199 mg/dL [facility] Comment: Interpretive Data Fasting glucose >/= 126 [...] Calcium 9.3 8.5 - 10.3 mg/dL [facility] Bilirubin, total 0.4 0.1 - 1.2 mg/dL [facility] Protein, pl 6.7 6.5 - 8.5 g/dL [facility] Albumin 4.3 3.5 - 5.0 g/dL [facility] Alk phos 69 40 - 130 Units/L [facility] ALT 35 7 - 55 Units/L [facility] AST 26 10 - 50 Units/L [facility] Blood 08/09/2024 11:5 5 AM CDT 08/09/2024 12:30 PM CDT Kieran Hill MD LAB BLOOD ORDERABLES Fin al Result [facility] [place] [facility] Department [place] [address] * ECG 12 lead (08/09/2024 11:47 AM CDT) Ventricular Rate EKG/Min 71 BPM [facility] Atrial Rate 71 BPM [facility] SC-Interval (MSEC) 172 ms [facility] QRS-Interval (MSEC) 164 ms [facility] QT-Interval (MSEC) 440 ms [facility] QTc 478 ms [facility] P [place] 110 degrees [facility] R [place] 3 degrees [facility] T [place] 237 degrees [facility] Diagnosis Sinus rhythm with Premature atrial complexes Left bundle branch block Abnormal ECG No previous ECGs available Confirmed by Santana Peterson MD ([id number]) on 08/11/2024 9:52:51 AM [facility] 08/09/2024 11:4 7 AM CDT 08/11/2024 9:52 AM CDT Kieran Hill MD ECG ORDERABLES Final Re sult Performing Organization Address [facility] Co de Phone Number [facility] * PET/CT FDG Cardiac Sarcoid/Infection (08/03/2024 11:26 [...] PET/CT (METABOLISM) DATE OF STUDY: 08/03/2024 SCANNER: [email or web address] N mCT RADIOPHARMACEUTICAL: 16.09 mCi F-18 Fluorodeoxyglucose [...] obtained. The study was interpreted on the [email or web address] workstation. Scanned area: upper thorax to the [...] PET/CT (METABOLISM) DATE OF STUDY: 08/03/2024 SCANNER: [email or web address] N mCT RADIOPHARMACEUTICAL: 16.09 mCi F-18 Fluorodeoxyglucose [...] obtained. The study was interpreted on the [email or web address] workstation. Scanned area: upper thorax to the [...] Lex Cedeño M.D. us Maicol Santos MD [facility] Final Result * DEVICE CHECK - REMOTE (07/01/2024 6:00 AM CDT) Anatomical Region Laterality Modality Other 07/01/2024 6:00 AM CDT Narrative 07/07/2024 8:10 AM CDT Interpretation Summary: Battery and Leads (BL) Less than 6 months of battery longevity noted --- 3 months remaining (this is an estimate based on prior usage) Normal parameters identified on lead(s) Presenting Rhythm (SC) Atrial Sensing-Ventricular Sensing (-VS) --- rate 63 [...] Normal parameters identified on lead(s) Presenting Rhythm (SC) Atrial Sensing-Ventricular Sensing (-VS) --- rate 63 [...] PM CDT) Hep A IgM Nonreactive Nonreactive [facility] Comment: Interpretive Data If test is reported as GRAYZONE, new sample should be drawn in two weeks for testing. Current interpretive data was last revised on 2016. Hep B core IgM Nonreactive Nonreactive [facility] Comment: Interpretive Data If test is reported as GRAYZONE, new sample should be drawn for testing. Current interpretive data was last revised on 2016. Hep C Ab Nonreactive Nonreactive [facility] Comment: Interpretive Data Positive and greyzone results should be confirmed by a molecular method. If positive or greyzone, a second separately collected sample should be submitted for Hepatitis C Virus RNA. Detection and Quantitation by Real-Time Reverse Basin Finish Operator Tig Welder-PCR.Current Interpretive data was last revised on 2016. HepBsAg Nonreactive Nonreactive [facility] Blood specimen (specimen) 11/18/2016 4:40 PM CDT 11/18/2016 4:55 PM CDT us Farhat Choi MD LAB MICROBIOLOGY - GENERAL O RDERABLES Edited Result - Final [facility] Department [place] [address] from Last 3 Months or Most Recently Relevant to Health Maintenance Insurance MEDICARE [employer] [employer] MEDICARE [employer] MEDICARE FOR LIFE Care Teams Director Packaging Relationship Specialty Start Date End Date Kristina Montiel MD [address] [address] PCP - General Cardiology 08/11/24 Lauren Parker Primary Podiatrist Orthopedic Cardiology 09/10/17 Kristal Clements RN Product Handler 09/21/19 Farhat Choi MD [address] [place] [address] Referring Physician Pulmonary Disease 11/27/19 Maicol Santos MD [address] [place] [address] [employer] Man Transplant 09/21/19 Sabi Simpson RN [address] [facility] [address] [place] [address] Registered Nurse Product Handler 09/21/19 Tolu Wheat MD [address] [facility] [id number] [place] [address] Surgeon Cardiothoracic Surgery 08/11/24 Miscellaneous, Not In File 08/11/24
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
[2024-09-04] MEDS: CIPROFLOXACIN HCL 0.3% OP SOLN 2.5 ML BTL 2 DROP RIGHT EYE (02:41)
== END 2024-09-04 02:45 | disposition home or self-care (01) ==
PROVIDERS: Emergency Provider Student in an Organized Health Care Education/Training Program
DX: S05.01XA Injury of conjunctiva and corneal abrasion without foreign body, right eye, initial encounter (principal); I10 Essential (primary) hypertension; Z95.810 Presence of automatic (implantable) cardiac defibrillator; W22.8XXA Striking against or struck by other objects, initial encounter
CPT/HCPCS: 99283

== ENCOUNTER 2024-10-12 18:43 | Emergency (ER) | payer MEDICARE, OTHER, SELFPAY ==
--- OUTSIDE RECORDS SUMMARY | 2024-10-12 18:45 | XMS_ITS | Encounter Summary ---
Author Organization [facility] [employer] [facility] Address [address] [place] [address] Phone Care Team Providers Care Eyelet Machine Operator Name Role Phone Gavin Hernandez MD Primary Care Provider + [phone] Nallely Arshad RN Unavailable Lauren Parker Unavailable Unavailable Monet Hernandez MD Primary Care Provider [phone] Kristal Clements RN Unavailable [phone] Kristal Clements RN Unavailable [phone] Farhat Choi MD Unavailable [phone] Maicol Santos MD Unavailable [phone] Sabi Simpson RN Unavailable [phone] Kristina Montiel MD Primary Care Provider [phone] Tolu Wheat MD Unavailable [phone] Miscellaneous, Not In File Unavailable Unava ilable Encounter Details Date Type Department Care Team (Late st Contact Info) Description 03/08/2015 Orders Only [facility] Provider, MD Gil [address] [place] [id number] Social History Tobacco Use Types Packs/Day Years Used Date Smoking Tobacco: Never Assessed Sex and Gender Information Value Date Recorded Sex Assigned at Not on file 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 Gender Identity Male 10/16/2020 8:46 AM [...] on filedocumented in this encounter Care Teams Eyelet Machine Operator Relationship Specialty Start Date End Date Gavin Hernandez MD PCP - General 06/13/16 05/17/19 Monet Hernandez MD [address] [place] [address] PCP - General Family Medicine 09/06/19 08/10/24 Kristina Montiel MD [address] [facility] [address] [place] [address] PCP - General Cardiology 08/11/24 Nallely Arshad RN [address] [facility] [address] [place] [address] Registered Nurse Cardiology 09/10/17 11/16/19 Lauren Parker Primary Factory Superintendent Cardiology 09/10/17 Kristal Clements, RN Sizing Sprayer 09/21/19 Kristal Clements, RN Sizing Sprayer 11/17/19 2 Farhat Choi MD [address] [place] [address] Referring Physician Pulmonary Disease 11/27/19 Maicol Santos MD [address] [place] [address] Drupal Php Developer Transplant 09/21/19 Sabi Simpson, RN [address] [facility] [address] [place] [address] Registered Nurse Sizing Sprayer 09/21/19 Tolu Wheat MD [id number] [place] [address] Surgeon Cardiothoracic Surgery 08/11/24 Miscellaneous, Not In File 08/11/24 documented as of this encounter
--- OUTSIDE RECORDS SUMMARY | 2024-10-12 18:45 | XMS_ITS | Clinical Summary ---
Author Organization [facility] Address [address] [place] [address] Care Team Providers Care Counseling Director Name Role Phone Lauren Parker Unavailable Unavailable Kristal Clements RN Unavailable [phone] Farhat Choi MD Unavailable [phone] Maicol Santos MD Unavailable [phone] Sabi Simpson RN Unavailable [phone] Kristina Montiel MD Primary Care Provider [phone] Tolu Wheat MD Unavailable [phone] Miscellaneous, Not In File Unavailable Unava [...] total) by mouth daily 90 tablet 2 4 01/27/20 Active Additional Information Patient taking differently:50 mg [...] hours as needed for pain 20 tablet 5 Active magnesium oxide (MAG-OX) 400 mg (241.3 mg elemental magnesium) tablet Take 2 tablets (800 mg total) by mouth daily 5 08/13/19 26 Active acetaminophen 500 mg capsule Take 2 capsules (1,000 mg total) by mouth every 6 (six) hours as needed for pain 5 Active predniSONE (DELTASONE) 10 mg tabletIndicatio ns:Sarcoidosis Take 1 tablet (10 mg) by mouth daily 5 08/13/19 26 Active Active Problems Problem Noted Date Diagnosed Date [...] Encounters Date Type Department Care Team Description 09/23/2024 Telephone [facility] Cardiology [address] [place] [address] [facility] 8th [place] [address] [place] [address] Kristina Montiel MD 08/24/2024 11:35 AM CDT - 08/24/2024 11:59 PM CDT Hospital Encounter [facility] [address] [place] [address] Cardiac sarcoidosis; Ventricular fibrillation (HCC) Discharge Disposition: Discharge to home or self care 08/24/2024 11:30 AM CDT Office Visit [facility] Cardiothoracic Surgery [address] [place] [address] 8th Floor [address] Room [address] [address] Jovita Almeida NP Cardiac sarcoidosis (Primary Dx) 08/19/2024 12:00 PM CDT Ancillary Procedure [facility] Cardiology [address] [place] [address] 8th [place] [address] [place] [address] VF (ventricular fibrillation) (HCC) (Primary Dx); Encounter for fitting or adjustment of automatic implantable cardioverter-defibr illator; NICM (nonischemic cardiomyopathy) (HCC) 08/19/[address] 8th [place] [address] [place] [address] Kristina Montiel MD 08/18/[address] 8th [place] [address] [place] [address] Kristina Montiel MD 08/15/2024 Documentation [facility] Cardiothoracic Surgery [address] [place] [address] 8th Floor [address] Room 08[facility] [place] [address] Jovita Almeida NP 08/15/2024 Telephone [facility] Cardiothoracic Surgery [address] [facility] 8th Floor [address] Room [address] [place] [address] Tolu Wheat MD 08/15/2024 Telephone [facility] Cardiology [address] [facility] 8th [place] [address] [place] [address] Kristina Montiel MD 08/11/2024 Orders Only [facility] Cardiothoracic Surgery [address] [facility] 8th Floor [address] Room [address] [place] [address] Jovita Almeida NP Cardiac sarcoidosis (Primary Dx); Ventricular fibrillation (HCC) 08/11/2024 Results Follow-Up [facility] Cardiology [address] [place] [address] [place] [address] [place] [address] Maicol Santos MD PET/CT FDG Cardiac Sarcoid/Infection 08/10/2024 8:10 AM CDT Ancillary Procedure [facility] Operating Room [address] [place] [address] 08/10/2024 8:00 AM CDT - 08/10/2024 1:25 PM CDT Surgery [facility] Operating Room [address] [place] [address] Tolu Wheat MD EXTRACTION LEAD AUTOMATIC IMPLANTABLE CARDIOVERTER DEFIBRILLATOR 08/10/2024 7:57 AM CDT Anesthesia Event [facility] Operating Room [address] [place] [address] Tsering Greenfield MD Mehta, Divya, MD 08/10/2024 5:56 AM CDT - 08/11/2024 2:42 PM CDT Hospital Encounter [facility] [address] [place] [address] Tolu Wheat MD Cardiomyopathy, nonischemic (HCC) Discharge Disposition: Discharge to home or self care 08/10/2024 Orders Only [facility] Cardiology [address] [facility] 8th [place] [address] [place] [address] Esther Saeed NP Encounter for fitting or adjustment of automatic implantable cardioverter-defibr illator (Primary Dx) 08/09/2024 10:00 AM CDT Pre-Admission Testing [facility] for Preoperative Assessment and [facility] ([facility]) [address] [place] [address] Preoperative testing (Primary Dx); Bruises easily 08/03/2024 6:38 AM CDT - 08/03/2024 11:59 PM CDT Hospital Encounter [facility] ([facility]) [address] [place] [address] Discharge Disposition: Discharge to home or self care 08/03/2024 6:37 AM CDT - 08/03/2024 11:59 PM CDT Hospital Encounter [facility] ([facility]) [address] [place] [address] Cardiac sarcoidosis Discharge Disposition: Discharge to home or self care 08/03/2024 6:37 AM CDT - 08/03/2024 11:59 PM CDT Hospital Encounter [facility] ([facility]) [address] [place] [address] Discharge Disposition: Discharge to home or self care 08/03/2024 6:37 AM CDT - 08/03/2024 11:59 PM CDT Hospital Encounter [facility] ([facility]) [address] [place] [address] Cardiac sarcoidosis Discharge Disposition: Discharge to home or self care 08/02/2024 Telephone [facility] Transplant Heart [address] [facility] [address] [phone] [place] [address] Chiquis Ignacio 08/01/2024 Telephone [facility] Trans[facility] Heart [address] [facility] [address] [id number] [place] [address] Deny Seo from Last 3 Months Surgical History Surgery Date Site/Laterality Comments LA REPAIR PRIMARY TORN LIGM&/CAPSULE KNEE CRUCIAT Primary Repair Of Knee Ligament Cruciate Anterior - (Added by TW Conv) CARDIAC ELECTROPHYSIOLOGY PROCEDURE 08/10/2024 Chest/N/A Procedure: INSERT/REPLACE DUAL LEAD PACEMAKER (PPM) OR IMPLANTABLE CARDIOVERTER-DEFIBRILLATOR (ICD) ELECTRODE WO GENERATOR CHANGE [id number]; Surgeon: Kristina Montiel MD; Location: [facility] OR POD 3; Service: Cardiovascular; Laterality: N/A; Medical devices from this surgery are in the Medical Devices section. 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 - (Added by TW Conv) Encounter for other preproce dural examination Encounter for pre-transplant evaluation for heart transplant - (Added by TW Conv) Family History Medical History Relation Name Comments Atrial fibrillation Father Family h istory of atrial fibrillation - (Added by TW Conv) Diabetes Father Family history of diabetes mellitus - (Added by TW Conv) Gout Father Family history of gout - (Added by TW Conv) Hypertension Father Family history of hypertension - (Added by TW Conv)/Family history of hypertension - (Added by TW Conv) Atrial fibrillation Mother Family h istory of atrial fibrillation - (Added by TW Conv) Heart disease Mother Family history of cardiac disorder - (Added by TW Conv) Hypertension Mother Family history of hypertension - (Added by TW Conv)/Family history of hypertension - (Added by TW Conv) Relation Name Status Comments Father Mother [...] on file Legal Sex Male 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 Gender Identity Male 10/16/2020 8:46 AM [...] 11/18/2016, 016 Medical Devices Implanted Type Area Podiatric Foot And Ankle Specialist Device Identifier Shelf Expiration Date Model / Serial / Lot Icd ICD N/A: Heart [employer] Tyrx Absorbable Antibacterial Envelope Large 3.3x2.9in [id number] - [id number] Implanted:Qty: 1 on 08/10/2024 by Kristina Montiel MD at [facility] N/A: Heart [employer] 05/01/2025 [id number] / / [id number] Sol[employer] V[employer] Defib Cardiac Ppo58od [id number] [place] Implantable 2 Chamber [id number] - [id number] - [id number] Implanted:Qty: 1 on 08/10/2024 by Tolu Wheat MD at [facility] N/A: Chest [employer] V[employer] [id number] / [id number] / [employer] Active Fixation Steroid Eluting Latex Free Sterile Right Atrium Ventricle Ultipace 52cm [id number] - [id number] Implanted:Qty: 1 on 08/10/2024 by Tolu Wheat MD at [facility] [employer] [id number] 231/52 / / Procedures Procedure Name Priority Date/Time Associated Diagnosis Comments DEVICE CHECK - REMOTE Routine 09/20/2024 1:10 PM CDT XR CHEST PA LATERAL 2 VIEWS Schedule [...] ED Urgent/IP Urgent 08/10/2024 11:31 AM CDT LA AN PROCEDURE PLACEHOLDER Routine 08/10/2024 11:07 AM CDT ICD LEAD DUAL 2 LEADS PPM OR ICD Routine 08/10/2024 10:44 AM CDT Cardiomyopathy, nonischemic (HCC) FL FLUOROSCOPY < 1 HOUR IP Routine 08/10/2024 10:18 AM CDT POCT HEPARIN DOSE RESPONSE, CPB Routine 08/10/2024 9:28 AM CDT LA AN PROCEDURE PLACEHOLDER Routine 08/10/2024 8:50 AM CDT LA AN PROCEDURE PLACEHOLDER Routine 08/10/2024 8:50 AM CDT LA AN PROCEDURE PLACEHOLDER Routine 08/10/2024 8:50 AM CDT LA AN PROCEDURE PLACEHOLDER Routine 08/10/2024 8:49 AM CDT LA AN ELECTIVE ENDOTRACHEAL AIRWAY Routine 08/10/2024 8:49 [...] Routine) 08/03/2024 8:30 AM CDT Cardiac sarcoidosis HEPATITIS PANEL, ACUTE Routine Gen Lab 11/18/2016 4:40 PM CDT from Last 3 Months or Most Recently Relevant to Health Maintenance Results * DEVICE CHECK - REMOTE (09/20/2024 1:10 PM CDT) Anatomical Region Laterality Modality Other 09/20/2024 1:10 PM CDT Narrative 07/07/2024 8:10 AM CDT Interpretation Summary: Battery and Leads (BL) Normal parameters noted on battery and lead(s) --- 9 years remaining (this is an estimate based on prior usage) Presenting Rhythm (LA) Atrial Sensing-Ventricular Pacing (-CIRCUS HAND) --- rate 70 Arrhythmic events (AE) Nonsustained SVT event(s) identified --- One NS-SVT episode. Duration: 2-3 seconds. Rate: 187 Nonsustained VT event(s) identified --- One NS-VT episode. Duration: 7 seconds. Rate: 189 Transmission Information (TI) Physiologic Parameter Summary Report Procedure Note Kristina Montiel MD - 09/28/2024 Interpretation Summary: Battery and Leads (BL) Normal parameters noted on battery and lead(s) --- 9 years remaining(this is an estimate based on prior usage) Presenting Rhythm (LA) Atrial Sensing-Ventricular Pacing (-CIRCUS HAND) --- rate 70 Arrhythmic events (AE) Nonsustained SVT event(s) identified --- One NS-SVT episode. Duration: 2- 3seconds. Rate: 187 Nonsustained VT event(s) identified --- One NS-VT episode. Duration: 7seconds. Rate: 189 Transmission Information (TI) Physiologic Parameter Summary Report Kristina Montiel MD CV CARDIAC SERVICES PROCEDURES Edited Result - Final * XR Chest Pa Lateral 2 Views [...] Electronically signed by: Donaldo Palomares M.D. Jovita lAmeida SERVICE WRITER ADVISOR IMG XR PROCEDURES Final Re sult * [...] Result * eGFR (08/10/2024 9:43 PM CDT) [facility] eGFR 71 >=60 mL/min/1. 73 m2 Comment: [...] 08/10/2024 10:21 PM CDT us Phuong Hope NP LAB BLOOD ORDERABLES Final Result [facility] [place] [address] * (ABNORMAL) CBC without differential (08/10/2024 9:43 PM CDT) [facility] WBC 11.77(H) 3.80 - 9.90 K/cumm Hgb [...] CDT 08/10/2024 10:21 PM CDT Phuong Hope SERVICE WRITER ADVISOR LAB BLOOD ORDERABLES Final Result [facility] Department [place] [address] * Magnesium (08/10/2024 9:43 PM CDT) [facility] Magnesium 2.1 1.4 - 2.5 mg/dL Blood 08/10/2024 9:43 PM CDT 08/10/2024 10:21 PM CDT Phuong Hope SERVICE WRITER ADVISOR LAB BLOOD ORDERABLES Final Result Performing Organization Address City/[facility]/ZIP Co de Phone Number [facility] [place] [address] * Basic metabolic panel (08/10/2024 9:43 PM CDT) [facility] Sodium 137 135 - 145 mmol/L Potassium, [...] Calcium 8.6 8.5 - 10.3 mg/dL [facility] Blood 08/10/2024 9:43 PM CDT 08/10/2024 10:21 PM CDT Phuong Hope NP LAB BLOOD ORDERABLES Final Result [facility] [place] [address] * eGFR (08/10/2024 12:21 PM CDT) eGFR >90 >=60 mL/min/1. 73 m2 Comment: [...] 1 PM CDT 08/10/2024 12:25 PM CDT Kristina Montiel MD LAB BLOOD ORDERABLES Final [facility] [place] [address] * Basic metabolic panel (08/10/2024 12:21 PM CDT) [facility] Sodium 141 135 - 145 mmol/L Potassium, [...] [facility] Blood 08/10/2024 12:2 1 PM CDT 08/10/2024 12:25 PM CDT Kristina Montiel MD LAB BLOOD ORDERABLES Final Res ult [facility] [place] [address] * X-ray chest 1 view (08/10/2024 11:31 [...] MD IMG XR PROCEDURES Final Result * LA AN PROCEDURE PLACEHOLDER (08/10/2024 11:07 AM CDT) [...] code: KYMBERLY placement and diagnostic exam, non-congenital (48043) ICD code(s) for medical necessity: I97.190 - [...] inferior: akinetic 16- Apical septal: hypokinetic 17- Erwinna: hypokinetic Valves: Aortic Valve: Annulus: normal Leaflet [...] Replacement and New RA lead placement Room: CTOR 311 Patient Name:Zelalem Covington Patient date of :1970 Date of Procedure:08/10/2024 OPERATORS: 1. Kristina Montiel MD [facility] PROCEDURES: RA lead placement ICD generator [...] RA pacing lead Model [id number] SN [id number] implant date 70-15-46rkcl using the tightrail sheath, a long 6F 25 cm sheath was placed into the heart under fluoroscopic guidance over a eOriginalson 0.035 wire. I then scrubbed into the case. The new RA lead Solorio [id number] [facility] 05-31-2027 was advanced through the sheath, positioned and secured in the RAA Fluoroscopy confirmed the location. RA lead testing was performed and showed adequate sensing and pacing function. The RA lead was secured proximally and distally and sutured in place with 0 silk sutures. A pursestring of 0 pericardial was placed at the access site for hemostasis by CTS staff. The ICD generator Solorio Fortify [id number] (implant date 12-23-2013) was disconnected from the RV ICD lead. The leads were then attached to the new ICD generator Osmin Leija DR, [id number] [facility] 05-30-2026. The pocket was irrigated with sterile saline and vancomycin solution and then the generator was inserted into the pocket. Patel Braswell Lot # [id number] [facility] 05-02-2027 was hydrated in saline, trimmed and [...] IMPLANT INFORMATION Generator: Osmin Leija DR, [id number] [facility] 05-30-2026 RA lead: Solorio [id number] [facility] 05-31-2027 RV ICD lead: Solorio Durata Model [id number] SN [id number] Implant date 12-13-2013 All leads through the [...] Successful generator change with a Osmin Leija DR [id number] [facility] 05-30-2026 Successful RA lead placement RA lead: Solorio [id number] [facility] 05-31-2027 Successful RA pacing lead extraction RECOMMENDATIONS: IV Vancomycin for 24 hours Chest x-ray ordered Sling Bedrest overnight--OK to elevate HOB Monitor overnight No heparin or bivalarudin of any form Attestation I was present for the entire procedure and prepared this report. Kristina Montiel MD [facility] Kristina Montiel MD CV ELECTROPHYSIOLOGY PROCS Fin al Result * FL Fluoroscopy < 1 Hour (08/10/2024 10:18 AM CDT) Narrative [facility] - 08/10/2024 10:18 AM CDT The images from this study are not interpreted by Radiology. Please refer to the physician's procedure / OR operative note. Kristina Montiel MD IMG FLUOROSCOPY PROCEDURES Fin al Result [facility] * POCT heparin dose response, CPB (08/10/2024 9:28 AM CDT) Baseline ACT POC 125 112 - 174 sec Heparin dose response slope POC 68 60 - 195 [facility] Projected Heparin Concentration POC 5.2 units/mL [facility] Blood 08/10/2024 9:28 AM CDT 08/10/2024 9:28 AM CDT us Tolu Wheat MD LAB POCT ORDERABLES - DEVICE Final Result [facility] [place] [address] * LA AN PROCEDURE PLACEHOLDER (08/10/2024 8:50 AM CDT) Adi Banda CRNA - 08/10/2024 8:50 AM CDT Adi Patel CRNA 08/10/2024 8:51 AM Arterial Line Patient location: OR Indication: continuous blood pressure monitoring Ultrasound assisted: yes Staff: Placed by: Other staff: Rbobie Epstein RN Procedure prep: Prep solution: chlorhexadine/alcohol Prep: provider hat/mask, [...] MD ANESTHESIA ORDERABLES Fi nal Result * LA AN PROCEDURE PLACEHOLDER (08/10/2024 8:50 AM CDT) Adi Banda CRNA - 08/10/2024 8:50 AM CDT Adi Patel CRNA 08/10/2024 8:50 AM Peripheral IV Catheter Staff: Placed by: MANAGER RN CASE: Adi Patel CRNA PIV line: Laterality: right Site: foot Catheter size: 16 g Technique: anatomical landmarks Procedure details: good blood return Number of attempts: 1 us Tsering Greenfield MD ANESTHESIA ORDERABLES Fi nal Result * LA AN PROCEDURE PLACEHOLDER (08/10/2024 8:50 AM CDT) Adi Banda CRNA - 08/10/2024 8:50 AM CDT Adi Patel CRNA 08/10/2024 8:50 AM Peripheral IV Catheter Staff: Placed by: MANAGER RN CASE: Adi Patel CRNA Preprocedure prep: Prep solution: chlorhexadine PPE: gloves PIV line: Laterality: left Site: wrist Catheter size: 16 g Technique: anatomical landmarks Procedure details: good blood return Number of attempts: 1 us Tsering Greenfield MD ANESTHESIA ORDERABLES Fi nal Result * LA AN ELECTIVE ENDOTRACHEAL AIRWAY, LA AN PROCEDURE PLACEHOLDER (08/10/2024 8:49 AM CDT) Narrative Adi Patel CRNA - 08/10/2024 8:49 AM CDT Adi [...] For OR (08/10/2024 8:07 AM CDT) Narrative [facility] PROSOLV_CARDIOREPORT_CONS SCIMAGE - 08/10/2024 8:07 AM CDT Procedure Auto Finalized by Rule: BW CV KYMBERLY DURING CASE OR Please see the Anesthesiologist's Procedure Note for the results. us Tsering Greenfield MD CV ECHO PROCEDURES Final Result [facility] PROSOLV_CARDIOREPORT_CONS SCIMAGE * Check Sample (08/10/2024 6:30 AM CDT) ABO Rh O Positive [facility] HCLL OTHER 08/10/2024 6:30 AM CDT 08/10/2024 7:40 AM CDT us Tolu Wheat MD LAB BLOOD ORDERABLES Final Re sult Performing Organization Address [facility] Co de Phone Number [facility] [place] [address] [facility] * Prepare RBC: 2 Units (08/10/2024 6:09 AM CDT) Product code [id number] [facility] Unit Number [id number] 6-[id number] [facility] Product Blood Type OPOS [facility] Dispense Status RETURNED [facility] Product code [id number] Unit Number [id number] 9-C [facility] Product Blood Type OPOS [facility] Dispense Status RETURNED [facility] Blood 08/10/2024 6:09 AM CDT 08/10/2024 6:08 AM CDT Narrative [facility] - 08/10/2024 10:55 AM CDT Specify Procedure:->lead removal Are special requirements needed? (All products are leukoreduced and CMV- safe)- >No Date required:-[id number] LRRBC # of [id number] Reasons:-Hold for procedure (specify procedure)} us Kieran Hill MD BLOOD BANK PRODUCT ORDER JOSE L Final Result Performing Organization Address City/[facility]/ZIP Co de Phone Number [facility] [place] [address] * eGFR (08/09/2024 11:55 AM CDT) eGFR [...] 5 AM CDT 08/09/2024 12:30 PM CDT us Kieran Hill MD LAB BLOOD ORDERABLES Fin al Result [facility] [place] [address] * (ABNORMAL) Differential, auto (08/09/2024 11:55 AM CDT) Pathologist [facility] Neutrophil abs 4.21 1.50 - 6.50 K/cumm Imm gran abs 0.14(H) 0.00 - 0.10 K/cumm [facility] Lymphocyte abs 2.55 0.80 - 3.30 K/cumm [facility] Monocyte abs 0.71 0.20 - 0.80 K/cumm [facility] Eosinophil abs 0.36 0.00 - 0.50 K/cumm [facility] Basophil abs 0.10 0.00 - 0.10 K/cumm [facility] Neutrophil pct 52.2 % [facility] Comment: Interpretive Data Percent cell count reference ranges are not reported, since discordance with absolute values may lead to misinterpretation of CBC data. Current Interpretive Data was last revised on 2017. Imm gran pct 1.7 % [facility] Comment: Interpretive Data Percent cell count reference ranges are not reported, since discordance with absolute values may lead to misinterpretation of CBC data. Current Interpretive Data was last revised on 2017. Lymphocyte pct 31.6 % [facility] Comment: Interpretive Data Percent cell count reference ranges are not reported, since discordance with absolute values may lead to misinterpretation of CBC data. Current Interpretive Data was last revised on 2017. Monocyte pct 8.8 % [facility] Comment: Interpretive Data Percent cell count reference ranges are not reported, since discordance with absolute values may lead to misinterpretation of CBC data. Current Interpretive Data was last revised on 2017. Eosinophil pct 4.5 % [facility] Comment: Interpretive Data Percent cell count reference ranges are not reported, since discordance with absolute values may lead to misinterpretation of CBC data. Current Interpretive Data was last revised on 2017. Basophil pct 1.2 % [facility] Comment: Interpretive Data Percent cell count reference ranges are not reported, since discordance with absolute values may lead to misinterpretation of CBC data. Current Interpretive Data was last revised on 2017. Blood 08/09/2024 11:5 5 AM CDT 08/09/2024 12:30 PM CDT us Kieran Hill MD LAB BLOOD ORDERABLES Fin al Result [facility] [place] [address] * CPAP aPTT algorithm (08/09/2024 11:55 AM CDT) aPTT 33 28 - 38 sec Comment: Interpretive Data Heparin therapeutic range: 66.0 - 100.0 seconds. Range based on correlation with therapeutic heparin activity range of 0.3 - 0.7 Units/mL. Current interpretive data was last revised on 2022. Blood 08/09/2024 11:5 5 AM CDT 08/09/2024 12:26 PM CDT Kieran Hill MD LAB BLOOD ORDERABLES Fin al Result Performing Organization Address City/[facility] Co de Phone Number [facility] [place] [address] * CBC with auto differential (08/09/2024 11:55 AM CDT) WBC 8.07 3.80 - 9.90 K/cumm Hgb [...] ORDERABLES Fin al Result Performing Organization Address [facility] Co de Phone Number [facility] [place] [address] * Protime-INR (08/09/2024 11:55 AM CDT) PT [...] ORDERABLES Fin al Result Performing Organization Address [facility] Co de Phone Number [facility] [place] [address] * Type and screen (08/09/2024 11:55 AM CDT) ABO Rh O Positive [place], indirect Negative [facility] Blood 08/09/2024 11:5 5 AM CDT 08/09/2024 12:59 PM CDT Narrative [facility] - 08/09/2024 2:03 PM CDT Has the patient had Daratumumab or Isatuximab in the past 6 months?->Unknown Kieran Hill MD LAB BLOOD BANK TEST ORDE RABEVIE Final Result Performing Organization Address [facility] Co de Phone Number [facility] [place] [address] * Comprehensive metabolic panel (08/09/2024 11:55 AM CDT) Sodium 144 135 - 145 mmol/L Potassium, pl 3.9 3.3 - 4.9 mmol/L [facility] Chloride 107 97 - 110 mmol/L [facility] CO2 29 22 - 32 mmol/L [facility] Anion gap 8 2 - 15 mmol/L [facility] BUN 24 6 - 25 mg/dL [facility] Creatinine 1.06 0.80 - 1.30 mg/dL [facility] Glucose 83 70 - 199 [...] 2022. Calcium 9.3 8.5 - 10.3 mg/dL [facility] Bilirubin, total 0.4 0.1 - 1.2 mg/dL [facility] Protein, pl 6.7 6.5 - 8.5 g/dL [facility] Albumin 4.3 3.5 - 5.0 g/dL [facility] Alk phos 69 40 - 130 Units/L [facility] ALT 35 7 - 55 Units/L [facility] AST 26 10 - 50 Units/L [facility] Blood 08/09/2024 11:5 5 AM CDT 08/09/2024 12:30 PM CDT us Kieran Hill MD LAB BLOOD ORDERABLES Fin al Result [facility] [place] [address] * ECG 12 lead (08/09/2024 11:47 AM CDT) Ventricular Rate EKG/Min 71 BPM [facility] Atrial Rate 71 BPM [facility] LA-Interval (MSEC) 172 ms [facility] QRS-Interval (MSEC) 164 ms [facility] QT-Interval (MSEC) 440 ms [facility] QTc 478 ms [facility] P [place] 110 degrees [facility] R [place] 3 degrees [facility] T [place] 237 degrees [facility] Diagnosis Sinus rhythm with Premature atrial complexes Left bundle branch block Abnormal ECG No previous ECGs available Confirmed by Santana Peterson MD ([id number]) on 08/11/2024 9:52:51 AM [facility] 08/09/2024 11:4 7 AM CDT 08/11/2024 9:52 AM CDT us Kieran Hill MD ECG ORDERABLES Final Re sult [facility] * PET/CT FDG Cardiac Sarcoid/Infection (08/03/2024 [...] PET/CT (METABOLISM) DATE OF STUDY: 08/03/2024 SCANNER: [facility] RADIOPHARMACEUTICAL: 16.09 mCi F-18 Fluorodeoxyglucose (FDG) i.v. [...] obtained. The study was interpreted on the [employer] workstation. Scanned area: upper thorax to the [...] PET/CT (METABOLISM) DATE OF STUDY: 08/03/2024 SCANNER: [facility] RADIOPHARMACEUTICAL: 16.09 mCi F-18 Fluorodeoxyglucose (FDG) i.v. [...] obtained. The study was interpreted on the [employer] workstation. Scanned area: upper thorax to the [...] separate FDG-PET report for assessment of inflammation. Dr(s)Caitlin Jones and Oscar also participated in the [...] Cedeño M.D. us Maicol Santos MD IMG NM PROCEDURES Final Result * Hepatitis panel, acute (11/18/2016 4:40 PM CDT) Hep A IgM Nonreactive Nonreactive [facility] Comment: Interpretive Data If test is reported as GRAYZONE, new sample should be drawn in two weeks for testing. Current interpretive data was last revised on 2016. Hep B core IgM Nonreactive Nonreactive [facility] Comment: [...] RNA. Detection and Quantitation by Real-Time Reverse Facsimile Operator-PCR.Current Interpretive data was last revised on 2016. HepBsAg Nonreactive Nonreactive [facility] Blood specimen (specimen) 11/18/2016 4:40 PM CDT 11/18/2016 4:55 PM CDT us Farhat Choi MD LAB MICROBIOLOGY - GENERAL O ROSE MARY Edited Result - Final [facility] [place] [address] from Last 3 Months or Most Recently Relevant to Health Maintenance Insurance MEDICARE FOR LIFE MEDICARE FOR LIFE MEDICARE [facility] Address: [address] [address] [place] [address] FOR LIFE Care Teams Counseling Director Relationship Specialty Start Date End Date Kristina Montiel MD [address] [address] PCP - General Cardiology 08/11/24 Lauren Parker Primary Registered Nurse Practitioner Cardiology 09/10/17 Kristal Clements RN Drink Mixer 09/21/19 Farhat Choi MD [address] [place], [place] [id number] Referring Physician Pulmonary Disease 11/27/19 Maicol Santos MD [address] [place], [place] [id number] Profile Trimmer Transplant 09/21/19 Sabi Simpson, RN [address] [facility] [address] [place] [address] Registered Nurse Drink Mixer 09/21/19 Tolu Wheat MD [address] [place] [address] Surgeon Cardiothoracic Surgery 08/11/24 Miscellaneous, Not In File 08/11/24
--- OUTSIDE RECORDS SUMMARY | 2024-10-12 18:45 | XMS_ITS | Encounter Summary ---
Author Organization [facility] Address [address] [place] [address] Phone Care Team Providers Care Environmental Sciences Professor Name Role Phone Lauren Parker Unavailable Unavailable Kristal Clements RN Unavailable [phone] Farhat Choi MD Unavailable +[phone] Maicol Santos MD Unavailable +[phone] Sabi Simpson RN Unavailable +[phone] Kristina Montiel MD Primary Care Provider Tolu Wheat MD Unavailable [phone] Miscellaneous, Not In File Unavailable Unava ilable Encounter Details Date Type Department Care Team (Late st Contact Info) Description 09/23/2024 Telephone [facility] Cardiology [address] [facility] Advanced Medicine 8th [place] [address] [place] [address] Kristina Montiel MD [address] [facility] [address] [place], [place] [id number] Social History Tobacco Use Types Packs/Day Years [...] on file 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 Will send this in a portal message as well. * Telephone Encounter - Erik Duval - 09/26/2024 12:20 PM CDT LMOR that this nurse will try to reach pt again later. * Telephone Encounter - Erik Duval - 09/26/2024 10:05 AM CDT LMOR for pt that this nurse will try to call back again later. * Telephone Encounter - Erik Duval - 09/23/2024 12:14 PM CDT , Pt states post gen change he took off from using the bow for about 6 weeks as instructed but started back yesterday light and everything went well. Pt is aware no golf for 2 more weeks. Pt says he wants to start weight lifting again like bench presses and curls and things - he says he will start out light but wants to use a little vigor to start rebuilding muscle because he has not lifted > 10lbs in the last 6 weeks. Pt asks is it okay to start weight lifting again now and asks if any otherrecs regarding this? (Pt's gen change was 08/10/24) Erik Brody * Telephone Encounter - Annia Jones - 09/23/2024 11:14 AM CDT Chelyeric Sp w/ pt and he is wanting to know about returning to weight lifting. When he can restart that and get back in the gym. Pt did start [place] shooting yesterday again following guide lines and it went well, very little soreness. Pt has about another 2-3 weeks before resuming golf but wanted to know about lifting weights. Pt was lifting about 250 lbs before surgery. Please call to discuss. documented in this encounter Plan of Treatment Not on file documented as of this encounter Visit Diagnoses Not on filedocumented in this encounter Care Teams Environmental Sciences Professor Relationship Specialty Start Date End Date Kristina Montiel MD [address] [facility] [address] [place] [address] PCP - General Cardiology 08/11/24 Lauren Parker Primary Inside Trucker Cardiology 09/10/17 Kristal Clements RN Workers Compensation Claims Adjuster 09/21/19 Farhat Choi MD [address] [facility] [address] [place] [address] Referring Physician Pulmonary Disease 11/27/19 Maicol Santos MD [address] [facility] [address] [place] [address] Hand Splitter Transplant 09/21/19 Sabi Simpson RN [address] [facility] [address] [place] [address] Registered Nurse Workers Compensation Claims Adjuster 09/21/19 Tolu Wheat MD [address] [place] [address] Surgeon Cardiothoracic Surgery 08/11/24 Miscellaneous, Not In File 08/11/24 documented as of this encounter
--- OUTSIDE RECORDS SUMMARY | 2024-10-12 18:45 | XMS_ITS | Encounter Summary ---
Author Organization [facility] Address [address] [place] [address] Phone Care Team Providers Care Line Leader Name Role Phone Gavin Hernandez MD Primary Care Provider [phone] Nallely Arshad RN Unavailable Lauren Parker Unavailable Unavailable Monet Hernandez MD Primary Care Provider [phone] Kristal Clements RN Unavailable +[phone] Kristal Clements RN Unavailable [phone] Farhat Choi MD Unavailable +[phone] Maicol Santos MD Unavailable +[phone] Sabi Simpson RN Unavailable +[phone] Kristina Montiel MD Primary Care Provider [phone] Tolu Wheat MD Unavailable [phone] Miscellaneous, Not In File Unavailable Unava ilable Encounter Details Date Type Department Care Team (Late st Contact Info) Description 08/13/2017 Telephone [facility] Scheduling [address] [place], [place] [id number] Gavin Hernandez MD [address] [facility] [address] [place] [address] Social History Tobacco Use Types Packs/Day Years Used Date Smoking Tobacco: Never Sex and Gender Information Value Date Recorded Sex Assigned at Not on file 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 Gender Identity Male 10/16/2020 8:46 AM CDT Sexual Orientation Not on file documented as of this encounter Plan of Treatment Not on file documented as of this encounter Visit Diagnoses Not on filedocumented in this encounter Care Teams Line Leader Relationship Specialty Start Date End Date Gavin Hernandez MD PCP - General 06/13/16 05/17/19 Monet Hernandez MD [address] [place] [address] PCP - General Family Medicine 09/06/19 08/10/24 Kristina Montiel MD [address] [facility] [address] [place] [address] PCP - General Cardiology 08/11/24 Nallely Arshad RN [address] [facility] [address] [place] [address] Registered Nurse Cardiology 09/10/17 11/16/19 Lauren Parker Primary Dean Of Graduate Studies Cardiology 09/10/17 Kristal Clements RN Residential Collections 09/21/19 Kristal Clements, AVI Residential Collections 11/17/19 2 Farhat Choi MD [address] [place] [address] Referring Physician Pulmonary Disease 11/27/19 Maicol Santos MD [address] [place] [address] Roller Mill Operator Transplant 09/21/19 Sabi Simpson, AVI [address] [facility] [address] [place] [address] Registered Nurse Residential Collections 09/21/19 Tolu Wheat MD [address] [place] [address] Surgeon Cardiothoracic Surgery 08/11/24 Miscellaneous, Not In File 08/11/24 documented as of this encounter
--- OUTSIDE RECORDS SUMMARY | 2024-10-12 18:45 | XMS_ITS | Encounter Summary ---
Author Organization [facility] Address [address] [place] [address] Phone Care Team Providers Care Pathology Laboratory Director Name Role Phone Gavin Hernandez MD Primary Care Provider + [phone] Nallely Arshad RN Unavailable Lauren Parker Unavailable Unavailable Monet Hernandez MD Primary Care Provider [phone] Kristal Clements RN Unavailable [phone] Kristal Clements RN Unavailable [phone] Farhat Choi MD Unavailable +[phone] Maicol Santos MD Unavailable +[phone] Sabi Simpson RN Unavailable [phone] Kristina Montiel MD Primary Care Provider [phone] Tolu Wheat MD Unavailable [phone] Miscellaneous, Not In File Unavailable Unava ilable Encounter Details Date Type Department Care Team (Late st Contact Info) Description 12/02/2016 Orders Only [facility] CLINCONV Provider, MD Gil [address] [place] [address] Social History Tobacco Use Types Packs/Day Years Used Date Smoking Tobacco: Never Assessed Sex and Gender Information Value Date Recorded Sex Assigned at Not on file 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 Gender Identity Male 10/16/2020 8:46 AM CDT [...] on filedocumented in this encounter Care Teams Pathology Laboratory Director Relationship Specialty Start Date End Date Gavin Hernandez MD PCP - General 06/13/16 05/17/19 Monet Hernandez MD [address] [place] [address] PCP - General Family Medicine 09/06/19 08/10/24 Kristina Montiel MD [address] [facility] [address] [place] [address] PCP - General Cardiology 08/11/24 Nallely Arshad RN [address] [facility] [address] [place] [address] Registered Nurse Cardiology 09/10/17 11/16/19 Lauren Parker Primary Fine Arts Chair Cardiology 09/10/17 Kristal Clements, RN Schedule Checker 09/21/19 Kristal Clements, RN Schedule Checker 11/17/19 2 Farhat Choi MD [address] [place] [address] Referring Physician Pulmonary Disease 11/27/19 Maicol Santos MD [address] [place] [address] Varnisher Plasticoater Transplant 09/21/19 Sabi Simpson, RN 45[address] [facility] [address] [place] [address] Registered Nurse Schedule Checker 09/21/19 Tolu Wheat MD [address] [place] [address] Surgeon Cardiothoracic Surgery 08/11/24 Miscellaneous, Not In File 08/11/24 documented as of this encounter
--- OUTSIDE RECORDS SUMMARY | 2024-10-12 18:45 | XMS_ITS | Encounter Summary ---
Author Organization [facility] Address [address] [place] [address] Care Team Providers Care Firesetter Name Role Phone Lauren Parker Unavailable Unavailable Monet Hernandez MD Primary Care Provider [phone] Kristal Clements RN Unavailable [phone] Kristal Clements RN Unavailable [phone] Farhat Choi MD Unavailable [phone] Maicol Santos MD Unavailable [phone] Sabi Simpson RN Unavailable [phone] Kristina Montiel MD Primary Care Provider [phone] Tolu Wheat MD Unavailable [phone] Miscellaneous, Not In File Unavailable Unava ilable Encounter Details Date Type Department Care Team (Late st Contact Info) Description 10/17/2020 Telephone [facility] ([facility]) [address] [place] [address] Roopa Morris RN Social History Tobacco Use Types Packs/Day Years Used Date Smoking Tobacco: Never Smokeless Tobacco: Never Sex and Gender Information Value Date Recorded Sex Assigned at Not on file 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 Gender Identity Male 10/16/2020 8:46 AM CDT Sexual Orientation Not on file documented as of this encounter Plan of Treatment Not on file documented as of this encounter Visit Diagnoses Not on filedocumented in this encounter Care Teams Firesetter Relationship Specialty Start Date End Date Monet Hernandez MD [address] [place] [address] PCP - General Family Medicine 09/06/19 08/10/24 Kristina Montiel MD [address] [facility] [address] [place] [address] PCP - General Cardiology 08/11/24 Lauren Parker Primary Supervisor Dock Cardiology 09/10/17 Kristal Clements, RN Nurse Private Duty 09/21/19 Kristal Cleemnts, AVI Nurse Private Duty 11/17/19 2 Farhat Choi MD [address] [place] [address] Referring Physician Pulmonary Disease 11/27/19 Maicol Santos MD [address] [place] [address] Communications Planner Transplant 09/21/19 Sabi Simpson, AVI [address] [facility] [address] [place] [address] Registered Nurse Nurse Private Duty 09/21/19 Tolu Wheat MD [address] [facility] [address] [place] [address] Surgeon Cardiothoracic Surgery 08/11/24 Miscellaneous, Not In File 08/11/24 documented as of this encounter
--- OUTSIDE RECORDS SUMMARY | 2024-10-12 18:45 | XMS_ITS ---
Author Organization [facility] Address [address] [place] [address] Care Team Providers Care Major League Baseball Umpire Name Role Phone Keith Lauren Unavailable Unavailable Kristal Clements RN Unavailable [phone] Farhat Choi MD Unavailable [phone] Maicol Santos MD Unavailable [phone] Sabi Simpson RN Unavailable [phone] Kristina Montiel MD Primary Care Provider [phone] Tolu Wheat MD Unavailable [phone] Miscellaneous, Not In File Unavailable Unava ilable Transplant Episode Heart Candidate [facility] ([place], [place]) - [facility] Referred on 08/01/2016 Marked as Ineligible on 12/31/2017 Heart CoordinatorHistorical ProviderMD Fax: N/A Email: N/A Care Team Name Role Phone Fax Email Historical MD Trent Training Officer [phone] N/A N/A Lauren Parker Primary Privacy Director N/A N/A N/A Events Pre-Transplant Referred: 08/01/2016
--- OUTSIDE RECORDS SUMMARY | 2024-10-12 18:45 | XMS_ITS | Encounter Summary ---
Author Organization [facility] Address [address] [place] [address] Phone Care Team Providers Care Underwear Hemmer Name Role Phone Gavin Hernandez MD Primary Care Provider + [phone] Nallely Arsahd RN Unavailable Lauren Parker Unavailable Unavailable Monet Hernandez MD Primary Care Provider [phone] Kristal Clements RN Unavailable +[phone] Kristal Clements RN Unavailable [phone] Farhat Choi MD Unavailable [phone] Maicol Santos MD Unavailable [phone] Sabi Simpson RN Unavailable [phone] Kristina Montiel MD Primary Care Provider [phone] Tolu Wheat MD Unavailable [phone] Miscellaneous, Not In File Unavailable Unava ilable Encounter Details Date Type Department Care Team (Late st Contact Info) Description 08/03/2016 Orders Only [facility] CLINCONV Provider, MD Gil [address] [place] [address] Social History Tobacco Use Types Packs/Day Years Used Date Smoking Tobacco: Never Assessed Sex and Gender Information Value Date Recorded Sex Assigned at Not on file 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 Gender Identity Male 10/16/2020 8:46 AM CDT [...] on filedocumented in this encounter Care Teams Underwear Hemmer Relationship Specialty Start Date End Date Gavin Hernandez MD PCP - General 06/13/16 05/17/19 Monet Hernandez MD [address] [place] [address] PCP - General Family Medicine 09/06/19 08/10/24 Kristina Montiel MD [address] [facility] [address] [place] [address] PCP - General Cardiology 08/11/24 Nallely Arshad RN [address] [facility] [address] [place] [address] Registered Nurse Cardiology 09/10/17 11/16/19 Lauren Parker Primary Director Data Management Cardiology 09/10/17 Kristal Clements, RN Retail Assistant 09/21/19 Kristal Clements, RN Retail Assistant 11/17/19 2 Farhat Choi MD [address] [place] [address] Referring Physician Pulmonary Disease 11/27/19 Maicol Santos MD [address] [place] [address] Naphthalene Operator Transplant 09/21/19 Sabi Simpson, RN [address] [facility] [address] [place] [address] Registered Nurse Retail Assistant 09/21/19 Tolu Wheat MD [address] [place] [address] Surgeon Cardiothoracic Surgery 08/11/24 Miscellaneous, Not In File 08/11/24 documented as of this encounter
--- OUTSIDE RECORDS SUMMARY | 2024-10-12 18:45 | XMS_ITS | Encounter Summary ---
Author Organization [facility] Address [address] [place] [address] Phone Care Team Providers Care Customer Success Director Name Role Phone Gavin Hernandez MD Primary Care Provider + [phone] Nallely Arshad RN Unavailable Lauren Parker Unavailable Unavailable Monet Hernandez MD Primary Care Provider [phone] Kristal Clements RN Unavailable +[phone] Kristal Clements RN Unavailable [phone] Frahat Choi MD Unavailable +[phone] Maicol Santos MD Unavailable [phone] Sabi Simpson RN Unavailable [phone] Kristina Montiel MD Primary Care Provider [phone] Tolu Wheat MD Unavailable [phone] Miscellaneous, Not In File Unavailable Unava ilable Encounter Details Date Type Department Care Team (Late st Contact Info) Description 05/28/2016 Orders Only [facility] CAR CLINCONV Provider, MD Gil [address] [place] [address] Social History Tobacco Use Types Packs/Day Years Used Date Smoking Tobacco: Never Assessed Sex and Gender Information Value Date Recorded Sex Assigned at Not on file 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 Gender Identity Male 10/16/2020 8:46 AM CDT [...] on filedocumented in this encounter Care Teams Customer Success Director Relationship Specialty Start Date End Date Gavin Hernandez MD PCP - General 06/13/16 05/17/19 Monet Hernandez MD [address] [place] [address] PCP - General Family Medicine 09/06/19 08/10/24 Kritsina Montiel MD [address] [facility] [address] [place] [address] PCP - General Cardiology 08/11/24 Nallely Arshad RN [address] [facility] [address] [place] [address] Registered Nurse Cardiology 09/10/17 11/16/19 Lauren Parker Primary Bellman Driver Cardiology 09/10/17 Kristal Clements, RN Manager Sterile 09/21/19 Kristal Cleemnts, RN Manager Sterile 11/17/19 2 Farhat Choi MD [address] [place] [address] Referring Physician Pulmonary Disease 11/27/19 Maicol Santos MD [address] [place] [address] Data Warehouse Manager Transplant 09/21/19 Sabi Simpson, RN 45[address] [facility] [address] [place] [address] Registered Nurse Manager Sterile 09/21/19 Tolu Wheat MD [address] [place] [address] Surgeon Cardiothoracic Surgery 08/11/24 Miscellaneous, Not In File 08/11/24 documented as of this encounter
--- OUTSIDE RECORDS SUMMARY | 2024-10-12 18:45 | XMS_ITS | Encounter Summary ---
Author Organization [facility] [employer] [facility] Address [address] [place] [address] Phone Care Team Providers Care Associate Professor Computer Science Name Role Phone Gavin Hernandez MD Primary Care Provider + [phone] Nallely Arshad RN Unavailable Lauren Parker Unavailable Unavailable Monet Hernandez MD Primary Care Provider [phone] Kirstal Clements RN Unavailable [phone] Kristal Clements RN Unavailable [phone] Farhat Choi MD Unavailable [phone] Maicol Santos MD Unavailable [phone] Sabi Simpson RN Unavailable [phone] Kristina Montiel MD Primary Care Provider [phone] Tolu Wheat MD Unavailable [phone] Miscellaneous, Not In File Unavailable Unava ilable Encounter Details Date Type Department Care Team (Late st Contact Info) Description 02/05/2017 Orders Only [facility]CON[facility] Provider, MD Gil [address] [place] [id number] Social History Tobacco Use Types Packs/Day Years Used Date Smoking Tobacco: Never Assessed Sex and Gender Information Value Date Recorded Sex Assigned at Not on file 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 Gender Identity Male 10/16/2020 8:46 AM CDT [...] on filedocumented in this encounter Care Teams Associate Professor Computer Science Relationship Specialty Start Date End Date Gavin Hernandez MD PCP - General 06/13/16 05/17/19 Monet Hernandez MD [address] [place] [address] PCP - General Family Medicine 09/06/19 08/10/24 Kristina Montiel MD [address] [facility] [address] [place] [address] PCP - General Cardiology 08/11/24 Nallely Arshad RN [address] [facility] [address] [place] [address] Registered Nurse Cardiology 09/10/17 11/16/19 Lauren Parker Primary Leaf Fat Scraper Cardiology 09/10/17 Kristal Clements, RN Crab Butcher 09/21/19 Kristal Clements, RN Crab Butcher 11/17/19 2 Farhat Choi MD [address] [place] [address] Referring Physician Pulmonary Disease 11/27/19 Maicol Santos MD [address] [place] [address] Cleaning Staff Supervisor Transplant 09/21/19 Sabi Simpson, RN [address] [facility] [address] [place] [address] Registered Nurse Crab Butcher 09/21/19 Tolu Wheat MD [address] [place] [address] Surgeon Cardiothoracic Surgery 08/11/24 Miscellaneous, Not In File 08/11/24 documented as of this encounter
--- OUTSIDE RECORDS SUMMARY | 2024-10-12 18:45 | XMS_ITS | Encounter Summary ---
Author Organization [facility] Address [address] [place] [address] Phone Care Team Providers Care Angle Furnaceman Name Role Phone Lauren Parker Unavailable Unavailable Kristal Clements RN Unavailable [phone] Farhat Choi MD Unavailable [phone] Maicol Santos MD Unavailable [phone] Sabi Simpson RN Unavailable [phone] Kristina Montiel MD Primary Care Provider Tolu Wheat MD Unavailable [phone] Miscellaneous, Not In File Unavailable Unava ilable Encounter Details Date Type Department Care Team (Late st Contact Info) Description 08/11/2024 Results Follow-Up [facility] Cardiology [address] [facility] Advanced Medicine 8th [place] [address] [place] [address] Maicol Santos MD [address] [facility] [address] [place] [address] PET/CT FDG Cardiac Sarcoid/Infection Social [...] on file 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 Gender Identity Male 10/16/2020 8:46 AM CDT Sexual Orientation Not on file documented as of this encounter Plan of Treatment Not on file documented as of this encounter Visit Diagnoses Not on filedocumented in this encounter Care Teams Angle Furnaceman Relationship Specialty Start Date End Date Kristina Montiel MD [address] [facility] [address] [place] [address] PCP - General Cardiology 08/11/24 Lauren Parker Primary Senior Planning Manager Cardiology 09/10/17 Kristal Clements RN Solder Sprayer 09/21/19 Farhat Choi MD [address] [place] [address] Referring Physician Pulmonary Disease 11/27/19 Maicol Santos MD [address] [place] [address] Credit Portfolio Manager Transplant 09/21/19 Sabi Simpson RN [address] [facility] [address] [place] [address] Registered Nurse Solder Sprayer 09/21/19 Tolu Wheat MD [address] [facility] [address] [place] [address] Surgeon Cardiothoracic Surgery 08/11/24 Miscellaneous, Not In File 08/11/24 documented as of this encounter
[2024-10-12 18:53] VITALS: BP 105/71; PULSE 98; RESP 18; TEMP 36.1; O2SAT 98
--- NOTE | 2024-10-12 19:21 | ED.SKABFB ---
HPI - Skin/Abscess/Foreign Bdy General Chief complaint: Skin/Abscess/Foreign Body Stated complaint: staph infection Time Seen by Provider: 10/12/24 19:05 Source: patient and RN notes reviewed Mode of arrival: ambulatory Limitations: no limitations History of Present Illness HPI narrative: 54-year-old male presents to the [facility] complaining of rash to his right leg. Patient reports primarily is located on the lateral side of his right lower thigh and right lower leg. Patient said 2 weeks ago he was at [facility] stated he was a bit by ticks on his feet but denies any bites to his legs he states. He has noticed a papular pruritic rash on his leg. Since then. Patient says daughter's diagnosis Staph infection with a similar looking rash and it resolved. Patient said he tried some of her left over mupirocin ointment and said he had some improvement but not full improvement. Patient is a fevers, malaise, body aches,, chills, nausea vomiting, muscle aches, headaches, to chest pain, difficulty breathing, joint pain or any other symptoms. Patient has a history of sarcoidosis his heart and a permanent pacemaker/defibrillator. Related Data Home Medications ?Medication ?Instructions ?Recorded ?Confirmed ?Last Taken ?Type metoprolol succinate 50 mg 1 tablet PO DAILY 09/07/21 10/12/24 Unknown History tablet,extended release 24 hr prednisone 10 mg tablet mg 10/12/24 Unknown History Allergies Allergy/AdvReac Type Severity Reaction Status Date / Time amoxicillin Allergy Mild Hives Verified 10/12/24 19:07 cephalexin Allergy Mild Rash Verified 10/12/24 19:07 Review of Systems Review of Systems: CONSTITUTIONAL: Denies fever, chills, or sweats. EYES: Denies visual changes, redness, or discharge. ENT: Denies rhinorrhea, congestion, sore throat, or otalgia. CARDIOVASCULAR: Denies chest pain, palpitations, or edema. RESPIRATORY: Denies cough or dyspnea. GASTROINTESTINAL: Denies abdominal pain, nausea, vomiting, or diarrhea. GENITOURINARY: Denies dysuria or hematuria. SKIN: Positive for rash and itching. MUSCULOSKELETAL: Denies back pain, joint pain, or myalgia. NEUROLOGIC: Denies headache, numbness, or weakness. PSYCHIATRIC: Denies anxiety or depression. All other systems reviewed are negative, except as documented in HPI. [facility] Past Medical History Medical History Acute cough URI (upper respiratory infection) Influenza Corneal abrasion HTN (hypertension) Cardiac sarcoidosis Surgical History Surgical History Status post implantation of automatic cardioverter/defibrillator (AICD) S/P cardiac pacemaker procedure Social History Social History Smoking status: Never smoker Gender identity (if verbalized by the patient): Male Comments At the time of my signature, I reviewed and agree with the nursing past medical, surgical, social, and family history. There is no relevant family history pertinent to the patient complaint. Exam Narrative: GENERAL: This is a well-nourished, well-developed adult, in no apparent distress. They are non ill-appearing, nontoxic appearing. HEAD: normocephalic, atraumatic. EYES: Sclera clear/white. Conjunctiva normal. Vision is grossly intact. Extraocular movements intact EARS: External ears normal, Hearing grossly intact. NOSE: External nose normal THROAT: Mucous membranes moist, NECK: Neck supple, CARDIOVASCULAR: Regular rate and rhythm RESPIRATORY: Respiratory rate normal, respiratory effort nonlabored, no respiratory distress SKIN: Papular pustular, macular papular pruritic rash scattered throughout the patient's right lateral lower thigh and into his right lateral lower leg scattered onto his right foot. No exudate. No induration, no area of fluctuance. Rashes nontender to palpate NEURO: awake, alert, and oriented to person, place and time. There were no obvious focal neurologic abnormalities. EXTREMITIES: No joint tenderness, effusion, or edema noted. Course Course Emergency Course: Portions of this record may have been created with voice recognition software Level of Care: Express Care Visit Vital Signs Vital signs: Vital Signs Temperature 96.9 F L 10/12/24 18:53 Pulse Rate 98 10/12/24 18:53 Respiratory Rate 18 10/12/24 18:53 Blood Pressure 105/71 10/12/24 18:53 Pulse Oximetry 98 10/12/24 18:53 Oxygen Delivery Room Air 10/12/24 18:53 Temperature 96.9 F L 10/12/24 18:53 Pulse Rate 98 10/12/24 18:53 Respiratory Rate 18 10/12/24 18:53 Blood Pressure 105/71 10/12/24 18:53 Pulse Oximetry 98 10/12/24 18:53 Oxygen Delivery Room Air 10/12/24 18:53 Reviewed MDM - Skin/Abscess/Foreign Bdy MDM Narrative Medical decision making narrative: Appears patient may have folliculitis. Given the purchase will prescribe a triamcinolone cream. Will treat with doxycycline. Discussed physical exam findings. Advised supportive measures and signs/symptoms to go to the ER. Pt is appropriate for outpt treatment and f/u. Differential Diagnosis Differential diagnosis: Likely cellulitis, insect bites, impetigo, contact dermatitis and other (Folliculitis) Critical Care Time Critical Care Time Critical Care Time: No Discharge Plan Discharge Clinical Impression: Folliculitis Patient Disposition: Home Condition: Stable Instructions: Folliculitis (ED) Additional Instructions: Clean with soap and water only; Avoid using alcohol and peroxide. You May take Tylenol as needed for pain. Follow the instructions on the bottle. Take doxycycline until you have complete the entire course. Please wear sunscreen for going to be outside while taking doxycycline. Use the triamcinolone cream as as directed. Please schedule a follow up visit with your personal physician for further evaluation and treatment within 3-5days If you develop increased redness, swelling, pain, fevers, full-body rash, chest pain, breathing problems, body aches, chills, nausea, vomiting, green/yellow drainage, muscle eczema, joint pain, severe headaches, or any other concerns please go to the ER immediately. Patient Language: Emirati Prescriptions: New triamcinolone acetonide 0.1 % cream 1 applic topical BID 7 Days Qty: 453.6 0RF doxycycline monohydrate 100 mg capsule 100 mg PO BID 7 Days Qty: 14 0RF No Action metoprolol succinate 50 mg tablet extended release 24 hr 1 tablet PO DAILY prednisone 10 mg tablet Follow-up/Referrals: Tom,Maicol Young M.D. [Primary Care Provider] - Time of Disposition: 19:20
== END 2024-10-12 19:22 | disposition home or self-care (01) ==
PROVIDERS: PCP Internal Medicine
DX: L73.9 Follicular disorder, unspecified (principal); I10 Essential (primary) hypertension; D86.89 Sarcoidosis of other sites; Z95.810 Presence of automatic (implantable) cardiac defibrillator
CPT/HCPCS: 99213; G0463